=== PATIENT | female | born 1980 | race Caucasian/White ===

== ENCOUNTER 2018-11-28 10:47 | Emergency (ER) | payer SELFPAY ==
--- OUTSIDE RECORDS SUMMARY | 2018-11-28 10:58 | XMS REPORT | Continuity of Care Document ---
:1980 Author Organization [employer] Care Team Providers Name Role Phone [employer] Unavailable Unavailable Problems Problem Status Onset Classification Date Comments Source Date Reported SEIZURE Active 11/05/19 [facility] Syncope and 09/02/19 11/29/2017 [facility] collapse 18 [facility] Migraine with 08/14/19 11/11/2017 Karen aura, not 18 Hospital intractable, without status migrainosus Headache, 08/06/19 11/11/2017 Karen classical 18 [facility] migraine Acute vomiting 08/06/19 11/11/2017 [facility] Acute lower UTI 08/06/19 11/11/2017 [facility] UTI, ACIDSIS Active 01/24/20 [facility] 17 [facility] Discharge 12/18/19 12/20/2016 Karen Diagnosis: 17 Hospital Bilateral lower extremity pain Discharge 12/18/19 12/20/2016 Karen Diagnosis: 17 [facility] Elevated SGOT Discharge 12/05/19 12/07/2016 Karen Diagnosis: 17 [facility] Abnormal AST Discharge 12/05/19 12/07/2016 Karen Diagnosis: 17 Hospital Elevated MCV LEG AND HAND Active 12/05/19 [facility] PAIN 17 Hospital Discharge 10/23/19 10/25/2016 Karen Diagnosis: Hand 17 Hospital pain Discharge 10/23/19 10/25/2016 Karen Diagnosis: 17 Hospital Contusion of hand RIGHT HAND Active 10/19/19 Karen INJURY/DOG BITE 17 Hospital Chalazion of 08/18/19 Diagnosis 08/17/2016 [facility] lower eyelid 17 Urinary tract 11/11/2017 Karen infection, site Hospital not specified Fibromyalgia Active Problem 11/29/2017 [facility] Endometrial ca Active Problem 11/29/2017 [facility] Excessive and 11/29/2017 [facility] frequent [facility] menstruation with irregular cycle Lower abdominal 11/29/2017 [facility] pain, Hospital unspecified Alcohol abuse 11/29/2017 [facility] with [facility] intoxication, unspecified Anxiety 11/29/2017 [facility] disorder, Hospital unspecified Contusion of 11/29/2017 [facility] right forearm, Hospital initial encounter Contusion of 11/29/2017 [facility] right lower leg, Hospital initial encounter Endometriosis, 11/29/2017 [facility] unspecified Hospital Acidosis 11/29/2017 [facility] Dysmenorrhea, 11/29/2017 [facility] unspecified Hospital Fibromyalgia 11/29/2017 [facility] Long QT syndrome 11/29/2017 [facility] UNSPECIFIED Active [facility] CONVULSIONS Hospital HYPOCALCEMIA Active [facility] Medications Medication Details Route Status Patient Ordering Order Source Instructions Provider Date haloperidol 1 mg 1 mg=1 tab, Active 11/09[facility] Karen oral tablet PO, BID, PRN 2018 Hospital Hallucinations , as needed for hallucination, # 14 tab, 0 Refill(s), Pharmacy: [facility]/pharmacy #[id number] multivitamin with 1 tab, PO, Active 11/09[facility] Karen minerals Daily, 0 2018 Hospital Refill(s) Folic Acid 1 mg, 1 tab, Inactive 11/09[facility] Karen Route: PO, 2018 [facility] Drug form: TAB, Daily, Dosing Weight 61.8, kg, Priority: NOW, Start date: 11/09/17 9:57:00 CDT, Duration: 30 day, Stop date: 12/09/17 9:00:00 CDTNotes: (Same as: Folvite) Thiamine 100 mg, 1 tab, Inactive 11/09[facility] Karen Route: PO, [address] [place] [address] Drug form: TAB, Daily, Dosing Weight 61.8, kg, Priority: NOW, Start date: 11/09/17 9:57:00 CDT, Duration: 30 day, Stop date: 12/09/17 9:00:00 CDTNotes: (Same As: Vitamin B1) multivitamin with 1 tab, Route: Inactive 11/09[facility] Karen minerals PO, Drug Form: 2018 [facility] TAB, Dosing Weight 61.8, kg, Daily, NOW, Start date: 11/09/17 9:57:00 CDT, Duration: 30 day, Stop date: 12/09/17 9:00:00 CDTNotes: (Same as:Thera-M, Theragran-M) WASTE: F/P - Black; E - Municipal Trash Bin Give with food. Folic Acid 1 MG 1 mg=1 tab, Active Karen Oral Tablet PO, Daily, # 2018 Hospital 30 tab, 0 Refill(s), Pharmacy: [facility]/pharmacy #[id number] thiamine 100 mg 100 mg=1 tab, Active Karen oral tablet PO, Daily, X 2018 Hospital 30 day, # 30 tab, 0 Refill(s), Pharmacy: [facility]/pharmacy #[id number] tramadol 50 mg=1 tab, Active Karen hydrochloride 50 PO, Q6H, PRN 2018 Hospital MG Oral Tablet Pain, X 10 day, # 40 tab, 0 Refill(s) Lidocaine Viscous 0.3 gm=15 mL, Active Karen 2% mucous S&SPIT, Q3H, 2018 Hospital membrane solution PRN Mouth Pain, X 14 day, # 100 mL, 0 Refill(s), Pharmacy: [facility]/pharmacy #[id number] QUEtiapine 25 mg 50 mg=2 tab, Active Karen oral tablet PO, TID, # 84 2018 Hospital tab, 0 Refill(s), Pharmacy: [facility]/pharmacy #[id number] Lactulose 667 20 gm=30 mL, Active Karen MG/ML Oral PO, TID, as 2018 Hospital Solution needed for goal 2-3 BM daily, X 14 day, # 1260 mL, 0 Refill(s), Pharmacy: [facility]/pharmacy #[id number] Acetaminophen 300 1 tab, PO, Inactive Karen MG / Codeine Q6H, PRN Pain 2018 Hospital Phosphate 30 MG Score 7-10, X Oral Tablet 14 day, # 40 tab, 0 Refill(s) Lactulose 667 20 gm, 30 ml, No Longer Karen MG/ML Oral Route: PO, Active 2017 [facility] Solution Drug form: SYRP, TID, Dosing Weight 61.8, kg, Priority: NOW, Start date: 11/08/17 10:57:00 CDT, Duration: 30 day, Stop date: 12/08/17 9:00:00 CDTNotes: (Same as:Chronulac) Lidocaine Viscous 15 ml, Route: No Longer Karen 2% mucous S&SPIT, Q3H, Active 2017 Hospital membrane solution Drug form: SOLN, PRN Mouth Pain, Start date: 11/07/17 13:42:00 CDT, Duration: 30 day, Stop date: 12/07/17 13:41:00 CDTNotes: (Same as: Xylocaine) Haldol 1 mg, 0.2 mL, No Longer Karen Route: IVP, Active 2018 Hospital Drug form: INJ, Q8H, Dosing Weight 61.8, kg, PRN as needed for agitation, Start date: 11/07/17 13:37:00 CDT, Duration: 30 day, Stop date: 12/07/17 13:36:00 CDTNotes: (Same as: Haldol) acetaminophen-cod 1 tab, Route: No Longer Karen eine #3 PO, Drug Form: Active 2018 Hospital TAB, Dosing Weight 61.8, kg, Q6H, PRN Pain Score 7-10, Start date: 11/07/17 11:15:00 CDT, Duration: 30 day, Stop date: 12/07/17 11:14:00 CDTNotes: Do not exceed 4gm/day of acetaminophen. (Same as: Tylenol with Codeine # 3) tramadol 50 mg, 1 tab, No Longer Karen hydrochloride 50 Route: PO, Active 2018 Hospital MG Oral Tablet Drug form: TAB, Q6H, Dosing Weight 61.8, kg, PRN Pain Score 4-6, Start date: 11/07/17 11:15:00 CDT, Duration: 30 day, Stop date: 12/07/17 11:14:00 CDTNotes: Not to exceed 400mg/day. (Same As: Ultram) Haldol 2 mg, 0.4 mL, Inactive Karen Route: IM, 2018 Hospital Drug form: INJ, ONCE, Dosing Weight 61.8, kg, Start date: 11/07/17 2:51:00 CDT, Stop date: 11/07/17 2:51:00 CDTNotes: (Same as: Haldol) Seroquel 50 mg, 2 tab, Inactive Karen Route: PO, 2018 Hospital Drug form: TAB, ONCE, Dosing Weight 61.8, kg, Priority: STAT, Start date: 11/06/17 23:29:00 CDT, Stop date: 11/06/17 23:29:00 CDTNotes: (Same as: SEROquel) Acetaminophen 325 1 tab, Route: No Longer Karen MG / Hydrocodone PO, Drug Form: Active 2018 [facility] Bitartrate 5 MG TAB, Dosing Oral Tablet Weight 61.8, kg, Q4H, PRN Pain Score 4-6, Start date: 11/06/17 14:21:00 CDT, Duration: 30 day, Stop date: 12/06/17 14:20:00 CDTNotes: (Same as: [place] 325/5) Do not exceed 4gm/day of acetaminophen. Acetaminophen 325 1 tab, Route: No Longer Karen MG / Hydrocodone PO, Drug Form: Active 2018 [facility] Bitartrate 10 MG TAB, Dosing Oral Tablet Weight 61.8, kg, Q4H, PRN Pain Score 6-10, Start date: 11/06/17 14:21:00 CDT, Duration: 30 day, Stop date: 12/06/17 14:20:00 CDTNotes: Do not exceed 4gm/day of acetaminophen. (Same as: [place] 325/10) Ondansetron 4 mg, 2 mL, No Longer Karen Route: IVP, Active 2017 [facility] Drug form: INJ, Q8H, Dosing Weight 61.8, kg, PRN Nausea & Vomiting, Start date: 11/06/17 14:21:00 CDT, Duration: 30 day, Stop date: 12/06/17 14:20:00 CDTNotes: (Same as: Gerardo) MEDICATION WASTE Product Size: 4 mg Product Wasted: ___ mg Acetaminophen 650 mg, 2 tab, No Longer Karen Route: PO, Active 2017 [facility] Drug form: TAB, Q6H, Dosing Weight 61.8, kg, PRN Pain Score 1-3, Start date: 11/06/17 14:21:00 CDT, Duration: 30 day, Stop date: 12/06/17 14:20:00 CDTNotes: Do not exceed 4 gm/day. (Same as: Tylenol) BD Normal Saline 25 mL, Route: No Longer Karen Flush IV, Drug Form: Active 2017 [facility] INJ, PRN, PRN Line Flush, Start date: 11/05/17 14:50:00 CDT, Duration: 30 day, Stop date: 12/05/17 14:49:00 CDTNotes: (Same as: BD Posiflush) Seroquel 50 mg, 2 tab, No Longer Karen Route: PO, Active 2017 [facility] Drug form: TAB, TID, Dosing Weight 61.8, kg, Start date: 11/05/17 11:00:00 CDT, Duration: 30 day, Stop date: 12/04/17 17:00:00 CDTNotes: (Same as: SEROquel) Haldol 2 mg, 0.4 mL, Inactive Karen Route: IV, 2017 [facility] Drug form: INJ, ONCE, Dosing Weight 61.8, kg, Start date: 11/05/17 10:10:00 CDT, Stop date: 11/05/17 10:10:00 CDTNotes: (Same as: Haldol) Dexamethasone 4 mg, 1 mL, Inactive Karen Route: IVP, 2017 [facility] Drug form: INJ, Q6H, Dosing Weight 61.8, kg, Priority: STAT, Start date: 11/04/17 21:06:00 CDT, Duration: 30 day, Stop date: 12/04/17 16:00:00 CDTNotes: Concentration: 4mg/ml Levetiracetam 500 500 mg, 1 tab, No Longer Karen MG Oral Tablet Route: PO, Active 2017 [facility] [Keppra] Drug form: TAB, Q12H, Dosing Weight 61.8, kg, Start date: 11/04/17 21:00:00 CDT, Duration: 30 day, Stop date: 12/04/17 9:00:00 CDTNotes: (Same as:Ketamicara) Folic Acid 1 mg, 1 tab, No Longer Karen Route: PO, Active [address] [place] [address] Drug form: TAB, Daily, Dosing Weight 61.8, kg, Start date: 11/04/17 9:26:00 CDT, Duration: 5 day, Stop date: 11/09/17 9:00:00 CDTNotes: (Same as: Folvite) Saline Flush 0.9% 10 ml, Route: No Longer Karen IVP, Drug Active 2017 [facility] Form: INJ, Dosing Weight 61.8, kg, Q12H, Start date: 11/04/17 9:00:00 CDT, Duration: 30 day, Stop date: 12/03/17 21:00:00 CDTNotes: (Same as: BD Posiflush) Thiamine 100 mg, 1 tab, No Longer Karen Route: PO, Active 2017 [facility] Drug form: TAB, Daily, Dosing Weight 61.8, kg, Start date: 11/04/17 9:00:00 CDT, Duration: 5 day, Stop date: 11/08/17 9:00:00 CDTNotes: (Same As: Vitamin B1) multivitamin 1 tab, Route: No Longer Karen PO, Drug Form: [facility] 2017 [facility] TAB, Dosing Weight 61.8, kg, Daily, Start date: 11/04/17 9:00:00 CDT, Duration: 5 day, Stop date: 11/08/17 9:00:00 CDTNotes: (Same as:Thera) WASTE: F/P - Black; E - Municipal Trash Bin Take with food. Famotidine 20 MG 20 mg, 1 tab, No Longer Karen Oral Tablet Route: PO, Active 2017 [facility] Drug form: TAB, BID, Dosing Weight 61.8, kg, Start date: 11/04/17 9:00:00 CDT, Duration: 30 day, Stop date: 12/03/17 17:00:00 CDTNotes: (Same as: Pepcid) Lorazepam 2 mg, 1 mL, No Longer Karen Route: IVP, Active 2017 [facility] Drug form: INJ, Q2H, Dosing Weight 61.8, kg, PRN Other -See Comment, CIWA Score 8 -14, Start date: 11/04/17 8:59:00 CDT, Duration: 30 day, Stop date: 12/04/17 8:58:00 CDTNotes: (Same as: Ativan) potassium 2 pkt, Route: No Longer Karen phosphate-sodium PO, Drug Form: Active 2018 Hospital phosphate 250 PDR/REC, mg-280 mg-160 mg Dosing Weight oral powder for 61.8, kg, PRN, reconstitution PRN Abnormal Lab Result, FOR ICU USE ONLY, Start date: 11/04/17 8:57:00 CDT, Duration: 30 day, Stop date: 12/04/17 8:56:00 CDTNotes: (Same as: Phos-NaK) Each 1.5 gm pkt has 250mg phosphorous. Mix w/2.5oz water and stir. Magnesium Oxide 800 mg, 2 tab, No Longer Karen Route: PO, Active 2017 Hospital Drug form: TAB, PRN, Dosing Weight 61.8, kg, PRN Abnormal Lab Result, FOR ICU USE ONLY, Start date: 11/04/17 8:57:00 CDT, Duration: 30 day, Stop date: 12/04/17 8:56:00 CDTNotes: (Same as: Mag-Ox 400) Magnesium oxide [id number] elemental magnesium Dose=____mg magnesium oxide (___mg elemental magnesium) Magnesium Sulfate 2 gm, 50 mL, No Longer Karen Route: IVPB, Active 2017 [facility] Drug form: INJ, PRN, Dosing Weight 61.8, kg, PRN Abnormal Lab Result, Start date: 11/04/17 8:57:00 CDT, Duration: 30 day, Stop date: 12/04/17 8:56:00 CDT, FOR ICU USE ONLYNotes: WASTE: F/P - Sink; E - Municipal Trash Bin Calcium Carbonate 500 mg, 1 tab, No Longer Karen 500 MG Chewable Route: PO, Active 2018 Hospital Tablet Drug form: CHEWTAB, PRN, Dosing Weight 61.8, kg, PRN Abnormal Lab Result, FOR ICU USE ONLY, Start date: 11/04/17 8:57:00 CDT, Duration: 30 day, Stop date: 12/04/17 8:56:00 CDTNotes: (Same As: Tums) Calcium Carbonate 500 [id number] mg elemental calcium Dose= mg calcium carbonate ( mg elemental calcium) Calcium Gluconate 1 gm, 10 mL, No Longer Karen Route: IVPB, [address] PRN, Dosing Weight 61.8, kg, PRN Abnormal Lab Result, Start date: 11/04/17 8:57:00 CDT, Duration: 30 day, Stop date: 12/04/17 8:56:00 CDT, FOR ICU USE ONLYNotes: WASTE: F/P - Sink; E - Municipal Trash Bin sodium phosphate 30 mmol, 10 No Longer Karen mL, Route: [address] IVPB, PRN, Dosing Weight 61.8, kg, PRN Abnormal Lab Result, Start date: 11/04/17 8:57:00 CDT, Duration: 30 day, Stop date: 12/04/17 8:56:00 CDT, FOR ICU USE ONLY potassium 15 mmol, 5 mL, No Longer Karen phosphate Route: IV, [address] PRN, Dosing Weight 61.8, kg, PRN Abnormal Lab Result, Start date: 11/04/17 8:57:00 CDT, Duration: 30 day, Stop date: 12/04/17 8:56:00 CDT, FOR ICU USE ONLYNotes: (Same as: K Phosphate.) 1 mMol phoshate has 1.47 mEq potassium Infuse over 4 hours Potassium 20 mEq, 100 No Longer Karen Chloride mL, Route: [address] IVPB, Drug form: INJ, PRN, Dosing Weight 61.8, kg, PRN Abnormal Lab Result, Via central line, Start date: 11/04/17 8:57:00 CDT, Duration: 30 day, Stop date: 12/04/17 8:56:00 CDT, FOR ICU USE ONLYNotes: (Same as: KCL) Infuse no faster than 10 mEq/hr if given peripherally. Saline Flush 0.9% 10 ml, Route: No Longer Karen IVP, Drug Active [address] [place] [address] Form: INJ, Dosing Weight 61.8, kg, PRN, PRN Line Flush, Start date: 11/04/17 8:57:00 CDT, Duration: 30 day, Stop date: 12/04/17 8:56:00 CDTNotes: (Same as: BD Posiflush) Nystatin 100 1 appl, Route: No Longer Karen UNT/MG Topical TOP, PRN, Drug Active 2017 [facility] Powder form: PWDR, PRN For Fungal Prophylaxis, Start date: 11/04/17 8:57:00 CDT, Duration: 30 day, Stop date: 12/04/17 8:56:00 CDTNotes: (Same as:Mycostatin, Nilstat) For external use only. NS + KCL 20mEq/L 1,000 mL, No Longer Karen 1000ml (Premix) Rate: 100 Active 2017 [facility] 1,000 mL ml/hr, Infuse over: 10 hr, Route: IV, Dosing Weight 61.8 kg, Total Volume: 1,000, Start date: 11/04/17 8:28:00 CDT, Duration: 1 day, Stop date: 11/05/17 8:27:00 CDT, 1.65, [id number]: PREMIX IV - Do Not Alter WASTE: F/P - Sink; E - Municipal Trash Bin Lorazepam 2 MG 2 mg=1 tab, Active Karen Oral Tablet PO, BID, PRN [address] [place] [address] [Ativan] as needed for anxiety, 0 Refill(s) Enoxaparin 40 mg, 0.4 mL, No Longer Karen Route: SUB-Q, [facility] 2017 [facility] Drug form: INJ, [id number], Dosing Weight 62.727, kg, Start date: 11/04/17 8:00:00 CDT, Duration: 30 day, Stop date: 12/02/17 10:00:00 CDTNotes: (Same as: Lovenox) Docusate 100 mg, 1 cap, No Longer Karen Route: PO, Active 2017 [facility] Drug form: CAP, BID, Dosing Weight 62.727, kg, PRN Constipation, Start date: 11/04/17 7:55:00 CDT, Duration: 30 day, Stop date: 12/04/17 7:54:00 CDTNotes: (Same as: Colace) (Do Not Crush) Ondansetron 4 mg, 2 mL, No Longer Karen Route: IVP, Active 2017 [facility] Drug form: INJ, Q6H, Dosing Weight 62.727, kg, PRN Nausea & Vomiting, Start date: 11/04/17 7:55:00 CDT, Duration: 30 day, Stop date: 12/04/17 7:54:00 CDTNotes: (Same as: Zofran) MEDICATION WASTE Product Size: 4 mg Product Wasted: ___ mg Lorazepam 60 mg, 30 mL, No Longer Karen Rate: Titrate, Active [facility] Start Dose: 1 mg/hr, Titration: Rebolus 1 milligram IV and/or Titrate by 1 mg/hour every 30 minutes, Goal(s): 0, Max Dose: 10 mg/hr, Route: IV, Dosing Weight 62.727 kg, Total Volume: 60, Start date: 11/04/17 6:09:00 CDT, D...Notes: (Same as: Ativan) Ativan 2 mg, Route: Inactive 11/04[facility] Karen IVP, Drug [address] [place] [address] form: INJ, ONCE, Dosing Weight 62.727, kg, Priority: STAT, Start date: 11/04/17 6:09:00 CDT, Stop date: 11/04/17 6:09:00 CDT Lorazepam 2 mg, 1 mL, Inactive Karen Route: IVP, [address] [place] [address] Drug form: INJ, ONCE, Dosing Weight 59.091, kg, Priority: STAT, Start date: 11/04/17 5:06:00 CDT, Stop date: 11/04/17 5:06:00 CDTNotes: (Same as: Ativan) Levetiracetam 1,000 mg, 100 Inactive 11/04[facility] Karen mL, Route: [address] [place] [address] IVPB, Drug form: INJ, ONCE, Dosing Weight 59.091, kg, Priority: STAT, Start date: 11/04/17 5:06:00 CDT, Stop date: 11/04/17 5:06:00 CDT Sodium Chloride 1,000 mL, Inactive Karen 0.9% (Bolus) IV 1,000 ml/hr, [address] [place] [address] Infuse Over: 1 hr, Route: IV, 1,000, Drug form: INJ, ONCE, Priority: STAT, Dosing Weight 59.091 kg, Start date: 11/04/17 5:06:00 CDT, Stop date: 11/04/17 5:06:00 CDT Saline Flush 0.9% 10 mL, Route: Inactive Karen IVP, Drug [address] [place] [address] Form: INJ, Dosing Weight 59.091, kg, PRN, PRN Line Flush, Start date: 11/04/17 5:06:00 CDT, Duration: 30 day, Stop date: 12/04/17 5:05:00 CDTNotes: (Same as: BD Posiflush) NS (Bolus) IV 500 mL, 500 Inactive Karen ml/hr, Infuse [address] [place] [address] Over: 1 hr, Route: IV, 500, Drug form: INJ, ONCE, Priority: STAT, Dosing Weight 59.091 kg, Start date: 08/23/17 9:17:00 CDT, Stop date: 08/23/17 9:17:00 CDT mefenamic acid 250 mg=1 cap, No Longer Karen 250 mg oral PO, Q6H, PRN Active [address] [place] [address] capsule for menstrual pain, X 7 day, # 30 cap, 0 Refill(s), Pharmacy: [facility]/pharmacy #[id number] Potassium 40 mEq, 2 tab, Inactive Karen Chloride Route: PO, [address] [place] [address] Drug form: ERTAB, Daily, Dosing Weight 59.091, kg, Start date: 08/23/17 9:08:00 CDT, Duration: 30 day, Stop date: 09/22/17 9:00:00 CDTNotes: (Same as: K-Dur 20) "Do Not Crush" For patients unable to swallow tablet, dissolve in one half glass of water. Allow about 2 minutes for the tablets to disintegrate. Stir before giving to prepare slurry and administer. Please exclude Patients with feeding tube less than 14 Azeri (Dobhoff, J-tube etc) and pediatric and patients. With food and full glass of water Saline Flush 0.9% 10 ml, Route: Inactive Karen IVP, Drug [facility] Form: INJ, Dosing Weight 61.364, kg, Q12H, Start date: 08/23/17 9:00:00 CDT, Duration: 30 day, Stop date: 09/21/17 21:00:00 CDTNotes: (Same as: BD Posiflush) Thiamine 100 mg, 1 tab, Inactive Karen Route: PO, 2017 Hospital Drug form: TAB, Daily, Dosing Weight 61.364, kg, Start date: 08/23/17 9:00:00 CDT, Duration: 5 day, Stop date: 08/27/17 9:00:00 CDTNotes: (Same As: Vitamin B1) Folic Acid 1 mg, 1 tab, Inactive Karen Route: PO, 2017 [facility] Drug form: TAB, Daily, Dosing Weight 61.364, kg, Start date: 08/23/17 9:00:00 CDT, Duration: 5 day, Stop date: 08/27/17 9:00:00 CDTNotes: (Same as: Folvite) Levetiracetam 500 500 mg, 1 tab, Inactive Karen MG Oral Tablet Route: PO, 2018 [facility] [Ketamicara] Drug form: TAB, Q12H, Dosing Weight 59.091, kg, Start date: 08/23/17 9:00:00 CDT, Duration: 30 day, Stop date: 09/21/17 21:00:00 CDTNotes: (Same as:Keppra) Famotidine 20 MG 20 mg, 1 tab, Inactive Karen Oral Tablet Route: PO, 2017 [facility] Drug form: TAB, BID, Dosing Weight 59.091, kg, Start date: 08/23/17 9:00:00 CDT, Duration: 30 day, Stop date: 09/21/17 17:00:00 CDTNotes: (Same as: Pepcid) multivitamin 1 tab, Route: Inactive Karen PO, Drug Form: 2018 [facility] TAB, Dosing Weight 61.364, kg, Breakfast, Start date: 08/23/17 8:00:00 CDT, Duration: 5 day, Stop date: 08/27/17 8:00:00 CDT morphine Sulfate 2 mg, 1 mL, Inactive Karen Route: INJ, 2018 [facility] Drug form: SOLN, Q4H, PRN Pain Score 7-10, Start date: 08/23/17 6:19:00 CDT, Duration: 30 day, Stop date: 09/22/17 6:18:00 CDT codeine sulfate 30 mg, 1 tab, Inactive Karen Route: PO, [address] [place] [address] Drug form: TAB, Q4H, PRN Headache 6-10, Start date: 08/23/17 3:33:00 CDT, Duration: 30 day, Stop date: 09/22/17 3:32:00 CDT APAP/butalbital/c 1 tab, Route: Inactive Karen affeine PO, Drug Form: [address] [place] [address] TAB, Q4H, PRN Headache 6-10, Start date: 08/23/17 3:32:00 CDT, Duration: 30 day, Stop date: 09/22/17 3:31:00 CDT Acetaminophen 325 1 cap, Route: Inactive Karen MG / butalbital PO, Drug Form: [address] [place] [address] 50 MG / Caffeine CAP, Dosing 40 MG / Codeine Weight 59.091, Phosphate 30 MG kg, Q4H, PRN Oral Capsule Headache 6-10, Start date: 08/23/17 3:20:00 CDT, Duration: 30 day, Stop date: 09/22/17 3:19:00 CDT morphine Sulfate 2 mg, 1 mL, Inactive Karen Route: IVP, [address] [place] [address] Drug form: SOLN, ONCE, Start date: 08/23/17 2:00:00 CDT, Stop date: 08/23/17 2:00:00 CDT Phenergan 25 mg, 1 mL, Inactive Karen Route: IVPB, [address] [place] [address] ONCE, Dosing Weight 61.364, kg, Start date: 08/23/17 1:19:00 CDT, Stop date: 08/23/17 1:19:00 CDTNotes: Do not give IV push. (Same as: Phenergan) Acetaminophen 300 1 cap, PO, Active Karen MG / butalbital Q4H, PRN [address] [place] [address] 50 MG / Caffeine Headache 6-10, 40 MG / Codeine 0 Refill(s) Phosphate 30 MG Oral Capsule [Fioricet with Codeine] Ondansetron 4 MG 4 mg=1 tab, No Longer Karen Disintegrating PO, TID, PRN Active 2018 [facility] Tablet [Zofran] Nausea & Vomiting, 0 Refill(s) Levetiracetam 500 500 mg=1 tab, Active Karen MG Oral Tablet PO, Q12H, 0 2017 [facility] [Keppra] Refill(s) Famotidine 20 MG 20 mg=1 tab, Active Karen Oral Tablet PO, BID, 0 2017 [facility] Refill(s) Clonidine 0.1 mg, 1 tab, Inactive Karen Route: PO, 2018 [facility] Drug form: TAB, Q4H, Dosing Weight 61.364, kg, PRN Hypertension, Start date: 08/23/17 1:05:00 CDT, Duration: 30 day, Stop date: 09/22/17 1:04:00 CDTNotes: (Same As: Catapres) Lorazepam 2 mg, 1 mL, Inactive Karen Route: IVP, 2017 [facility] Drug form: INJ, Q2H, Dosing Weight 61.364, kg, PRN Withdrawal, Start date: 08/23/17 1:05:00 CDT, Duration: 30 day, Stop date: 09/22/17 1:04:00 CDTNotes: (Same as: Ativan) morphine Sulfate 6 mg, 3 mL, Inactive Karen Route: PO, 2017 [facility] Drug form: SOLN, Q4H, PRN Pain Score 7-10, Start date: 08/23/17 0:57:00 CDT, Duration: 30 day, Stop date: 09/22/17 0:56:00 CDTNotes: (Same as:MORPhine Sulfate) Zofran 4 mg, 2 mL, Inactive Karen Route: IVP, 2017 [facility] Drug form: INJ, Q8H, Dosing Weight 61.364, kg, PRN Nausea, Start date: 08/23/17 0:54:00 CDT, Duration: 30 day, Stop date: 09/22/17 0:53:00 CDTNotes: (Same as: Zofran) MEDICATION WASTE Product Size: 4 mg Product Wasted: ___ mg Morphine 2 mg, Route: Inactive Karen IVP, Q4H, 2018 [facility] Dosing Weight 61.364, kg, PRN Pain Score 7-10, Start date: 08/23/17 0:54:00 CDT, Duration: 30 day, Stop date: 09/22/17 0:53:00 CDT Dextrose 50% 25 gm, Route: Inactive Karen Syringe IVP, Dosing 2018 [facility] Weight 61.364, kg, ONCE, STAT, Start date: 08/23/17 0:15:00 CDT, Stop date: 08/23/17 0:15:00 CDT Saline Flush 0.9% 10 ml, Route: Inactive Karen IVP, Drug 2018 [facility] Form: INJ, Dosing Weight 61.364, kg, PRN, PRN Line Flush, Start date: 08/23/17 0:03:00 CDT, Duration: 30 day, Stop date: 09/22/17 0:02:00 CDT Sodium Chloride 1,000 mL, Inactive Karen 0.9% IV 1,000 mL Rate: 100 2018 [facility] ml/hr, Infuse over: 10 hr, Route: IV, Dosing Weight 61.364 kg, Total Volume: 1,000, Start date: 08/23/17 0:03:00 CDT, Duration: 30 day, Stop date: 09/22/17 0:02:00 CDT, 1.62, m2 Pepcid 20 mg, Route: No Longer Karen IV, ONCE, Active [address] [place] [address] Dosing Weight 61.364, kg, Start date: 08/22/17 23:58:00 CDT, Stop date: 08/22/17 23:58:00 CDT, BD Normal Saline 25 mL, Route: No Longer Karen Flush IV, Drug Form: Active [address] [place] [address] INJ, PRN, PRN Line Flush, Start date: 08/22/17 23:48:00 CDT, Duration: 30 day, Stop date: 09/21/17 23:47:00 CDTNotes: (Same as: BD Posiflush) Morphine 2 mg, Route: Inactive Karen IVP, ONCE, 2018 [facility] Dosing Weight 61.364, kg, Priority: STAT, Start date: 08/22/17 23:30:00 CDT, Stop date: 08/22/17 23:30:00 CDT Potassium 20 mEq, Route: Inactive Karen Chloride PO, Drug form: [address] [place] [address] ERTAB, ONCE, Dosing Weight 61.364, kg, Priority: STAT, Start date: 08/22/17 23:19:00 CDT, Stop date: 08/22/17 23:19:00 CDT NS (Bolus) IV 1,000 mL, Inactive Karen 1,000 ml/hr, 2018 Hospital Infuse Over: 1 hr, Route: IV, 1,000, Drug form: INJ, ONCE, Priority: STAT, Dosing Weight 61.364 kg, Start date: 08/22/17 21:49:00 CDT, Stop date: 08/22/17 21:49:00 CDT Morphine 4 mg, 1 mL, Inactive Karen Route: IVP, [address] [place] [address] Drug form: SOLN, ONCE, Dosing Weight 61.364, kg, Priority: STAT, Start date: 08/22/17 21:14:00 CDT, Stop date: 08/22/17 21:14:00 CDTNotes: (Same as:MORPhine Sulfate) Zofran 4 mg, 2 mL, Inactive Karen Route: IVP, [facility] Drug form: INJ, ONCE, Dosing Weight 61.364, kg, Priority: STAT, Start date: 08/22/17 21:14:00 CDT, Stop date: 08/22/17 21:14:00 CDTNotes: (Same as: Zofran) MEDICATION WASTE Product Size: 4 mg Product Wasted: 0mg Phenergan 6.25 mg, 0.25 Inactive Karen mL, Route: 2018 [facility] IVPB, ONCE, Dosing Weight 61.364, kg, Priority: STAT, Start date: 08/05/17 5:07:00 CDT, Stop date: 08/05/17 5:07:00 CDTNotes: Do not give IV push. (Same as: Phenergan) Ondansetron 4 MG 4 mg=1 tab, No Longer Karen Disintegrating PO, TID, PRN Active 2018 Hospital Tablet [Zofran] Nausea & Vomiting, Dissolve tab under tongue, # 6 tab, 0 Refill(s) Acetaminophen 300 1 cap, PO, No Longer Karen MG / butalbital QID, PRN Active 2018 Hospital 50 MG / Caffeine Headache, Do 40 MG / Codeine not exceed 6 Phosphate 30 MG capsules in 24 Oral Capsule hours, X 5 [Fioricet with day, # 24 cap, Codeine] 0 Refill(s) Sulfamethoxazole 1 tab, PO, No Longer Karen 800 MG / BID, X 5 day, Active 2018 Hospital Trimethoprim 160 # 10 tab, 0 MG Oral Tablet Refill(s) [Bactrim] Zofran 4 mg, Route: Inactive Karen IVP, Drug 2018 Hospital form: INJ, ONCE, Dosing Weight 61.364, kg, Priority: STAT, Start date: 08/05/17 4:21:00 CDT, Stop date: 08/05/17 4:21:00 CDT Ceftriaxone 1 gm, Route: Inactive Karen IVPB, Drug 2018 Hospital form: PDR/INJ, ONCE, Dosing Weight 61.364, kg, Priority: STAT, Start date: 08/05/17 4:17:00 CDT, Stop date: 08/05/17 4:17:00 CDT, ABX Indication: Urinary Tract Infection Ketorolac 30 mg, Route: Inactive Karen IVP, Drug 2018 Hospital form: INJ, ONCE, Dosing Weight 61.364, kg, Priority: STAT, Start date: 08/05/17 2:43:00 CDT, Stop date: 08/05/17 2:43:00 CDT Morphine 4 mg, Route: Inactive Karen IVP, ONCE, 2018 Hospital Dosing Weight 61.364, kg, Priority: STAT, Start date: 08/05/17 2:08:00 CDT, Stop date: 08/05/17 2:08:00 CDT NS (Bolus) IV 1,000 mL, Inactive Karen 1,000 ml/hr, 2018 Hospital Infuse Over: 1 hr, Route: IV, ONCE, Priority: STAT, Dosing Weight 61.364 kg, Start date: 08/05/17 1:34:00 CDT, Stop date: 08/05/17 1:34:00 CDT Compazine 10 mg, Route: Inactive 08/05[facility] Karen IV, ONCE, 2018 Hospital Dosing Weight 61.364, kg, Start date: 08/05/17 1:32:00 CDT, Stop date: 08/05/17 1:32:00 CDT Famotidine 20 mg, Route: Inactive 08/05[facility] Karen IVP, ONCE, 2018 Hospital Dosing Weight 61.364, kg, Priority: STAT, Start date: 08/05/17 1:08:00 CDT, Stop date: 08/05/17 1:08:00 CDT Metoclopramide 10 mg, Route: Inactive 08/05[facility] Karen IVP, Drug 2018 Hospital form: INJ, ONCE, Dosing Weight 61.364, kg, Priority: STAT, Start date: 08/05/17 1:08:00 CDT, Stop date: 08/05/17 1:08:00 CDT Saline Flush 0.9% 10 mL, Route: Inactive 08/05[facility] Karen IVP, Drug 2018 Hospital Form: INJ, Dosing Weight 61.364, kg, PRN, PRN Line Flush, Start date: 08/05/17 1:08:00 CDT, Duration: 30 day, Stop date: 09/04/17 1:07:00 CDTNotes: (Same as: BD Posiflush) Benadryl 25 mg, Route: Inactive 08/05[facility] Karen IVP, ONCE, 2018 Hospital Dosing Weight 61.364, kg, Priority: STAT, Start date: 08/05/17 1:08:00 CDT, Stop date: 08/05/17 1:08:00 CDT ibuprofen 600 mg 600 mg=1 tab, Inactive Karen oral tablet PO, Q8H, PRN 2017 [facility] pain, # 30 tab, 0 Refill(s) Acetaminophen 325 1 tab, PO, Active Karen MG / Hydrocodone Q4-6H, PRN 2017 [facility] Bitartrate 5 MG Pain Score Oral Tablet 6-10, X 5 day, [[place] 5/325] # 30 tab, 0 Refill(s) Famotidine 20 MG 20 mg=1 tab, Active Karen Oral Tablet PO, BID, # 60 2017 Hospital tab, 0 Refill(s) Lidocaine 1 patch, TOP, Active Karen Hydrochloride Daily, Remove 2017 Hospital 0.05 MG/MG after 12 Transdermal Patch hours, # 7 [Lidoderm] patch, 0 Refill(s) Levetiracetam 500 500 mg=1 tab, Active Karen MG Oral Tablet PO, Q12H, # 60 2017 Hospital [Keppra] tab, 0 Refill(s) acetaminophen 325 650 mg=2 tab, Active Karen mg oral tablet PO, Q4H, PRN 2017 Hospital Pain 1-3/Temp > 100.4 F, 0 Refill(s) Calcium Carbonate 1,000 mg, 2 Inactive Karen tab, Route: 2017 Hospital PO, Drug form: CHEWTAB, BID, Dosing Weight 59.091, kg, Start date: 01/26/17 9:00:00 CDT, Duration: 30 day, Stop date: 02/24/17 17:00:00 CDTNotes: (Same As: Tums) Calcium Carbonate 500 at=724 mg elemental calcium Dose= mg calcium carbonate ( mg elemental calcium) Pepto-bismol 524 mg, 30 mL, No Longer Karen Route: PO, Active 2016 [facility] Drug Form: SUSP, Dosing Weight 59.091, kg, QID, PRN Diarrhea, Start date: 01/25/17 22:33:00 CDT, Duration: 30 day, Stop date: 02/24/17 22:32:00 CDTNotes: (Same As: Pepto Bismol and Kaopectate) Levetiracetam 500 500 mg, 1 tab, No Longer Karen MG Oral Tablet Route: PO, Active [address] [place] [address] [Keppra] Drug form: TAB, Q12H, Dosing Weight 59.091, kg, Start date: 01/25/17 21:00:00 CDT, Duration: 30 day, Stop date: 02/24/17 9:00:00 CDTNotes: (Same as:Keppra) Keppra 1,000 mg, Inactive Karen Route: IV, [address] [place] [address] ONCE, Dosing Weight 59.091, kg, Priority: NOW, Start date: 01/25/17 11:14:00 CDT, Stop date: 01/25/17 11:14:00 CDTNotes: Same as Keppra Mix with 100 mL NS, LR or D5W MEDICATION WASTE Product Size: 500 mg Product Wasted: _0__ mg Lidocaine 1 patch, No Longer Karen Hydrochloride Route: TOP, Active [address] [place] [address] 0.05 MG/MG Daily, Drug Transdermal Patch form: FILM, [Lidoderm] Start date: 01/25/17 9:00:00 CDT, Duration: 30 day, Stop date: 02/23/17 9:00:00 CDT, Remove after 12 hoursNotes: Apply only once for up to 12 hours in a 24-hour period (12 hours on and 12 hours off). (Same as: Lidoderm) "Remove old patch before application of new patch" ketOROLAC 15 15 mg, 0.5 mL, No Longer Karen mg/mL injectable Route: IVP, Active [address] [place] [address] solution Drug form: INJ, Q6H, Dosing Weight 59.091, kg, PRN Pain Score 4-6, Start date: 01/25/17 8:49:00 CDT, Duration: 4 day, Stop date: 01/29/17 8:48:00 CDTNotes: (Same as:Toradol) IV bolus must be given >15 seconds. Give IM administration slowly and deeply into the muscle. Not for use > 4 days MEDICATION WASTE Product Size: 30 mg Product Wasted: ___ mg Calcium Gluconate 1,000 mg, 10 Inactive Karen mL, Route: [address] [place] [address] IVPB, ONCE, Dosing Weight 59.091, kg, Priority: NOW, Start date: 01/25/17 3:39:00 CDT, Stop date: 01/25/17 3:39:00 CDT Ceftriaxone 1 gm, Route: No Longer Karen IVPB, [id number], Active 2017 Hospital Dosing Weight 59.091, kg, Start date: 01/24/17 23:00:00 CDT, Duration: 5 day, Stop date: 01/28/17 23:00:00 CDT, ABX Indication: Urinary Tract InfectionNotes : (Same As: Rocephin). Use with 100 mL NS and infuse over 30 min MEDICATION WASTE Product Size: 1000 mg Product Wasted: __0_ mg Tylenol 650 mg, 2 tab, No Longer Karen Route: PO, Active 2017 Hospital Drug form: TAB, Q4H, Dosing Weight 59.091, kg, PRN Pain 1-3/Temp > 100.4 F, Start date: 01/24/17 22:29:00 CDT, Stop date: 02/23/17 22:28:00 CDTNotes: Do not exceed 4 gm/day. (Same as: Tylenol) Keppra + sodium 1,000 mg, Inactive Karen chloride 0.9% 100 Route: IVPB, 2017 [facility] mL INJ (for IV ONCE, Start set) 100 mL date: 01/24/17 22:07:00 CDT, Stop date: 01/24/17 22:07:00 CDTNotes: Same as Keppra Mix with 100 mL NS, LR or D5W MEDICATION WASTE Product Size: 500 mg Product Wasted: ___ mg Potassium 40 mEq, 2 tab, Inactive Karen Chloride Route: PO, 2017 Hospital Drug form: ERTAB, ONCE, Dosing Weight 59.091, kg, Start date: 01/24/17 21:50:00 CDT, Stop date: 01/24/17 21:50:00 CDTNotes: (Same as: K-Dur 20) "Do Not Crush" With food and full glass of water Keppra 1,000 mg, 100 Inactive Karen mL, Route: 2017 Hospital IVPB, Drug form: INJ, ONCE, Dosing Weight 59.091, kg, Start date: 01/24/17 21:49:00 CDT, Stop date: 01/24/17 21:49:00 CDT sodium chloride 2,000 mL, Inactive Karen 0.9% 1000 ml INJ Rate: 1,000 2017 Hospital 2,000 mL ml/hr, Infuse over: 2 hr, Route: IV, Dosing Weight 59.091 kg, Total Volume: 2,000, Start date: 01/24/17 21:31:00 CDT, Duration: 1 doses or times, Stop date: 01/24/17 23:30:00 CDT Potassium 10 mEq, 100 Inactive Karen Chloride mL, Route: IV, 2016 Hospital Drug form: INJ, Q1H, Dosing Weight 59.091, kg, Start date: 01/24/17 12:00:00 CDT, Duration: 4 doses or times, Stop date: 01/24/17 15:00:00 CDTNotes: Infuse at a rate of 10 mEq/hr. (Same as: KCL) Magnesium Sulfate 4 gm, 100 mL, Inactive Karen Route: IVPB, 2016 Hospital Drug form: INJ, ONCE, Dosing Weight 59.091, kg, Priority: NOW, Start date: 01/24/17 11:44:00 CDT, Stop date: 01/24/17 11:44:00 CDTNotes: WASTE: F/P - Sink; E - [employer] [facility] Dilaudid 0.5 mg, 0.5 No Longer Karen mL, Route: IV, Active 2016 [facility] Drug form: INJ, Q3H, Dosing Weight 59.091, kg, PRN Pain Score 6-10, Start date: 01/24/17 9:22:00 CDT, Duration: 30 day, Stop date: 02/23/17 9:21:00 CDTNotes: Same as: Dilaudid Phenergan 25 mg, 1 mL, No Longer Karen Route: IVPB, Active 2017 Hospital Q6H, Dosing Weight 59.091, kg, PRN as needed for nausea/vomitin g, Priority: STAT, Start date: 01/24/17 9:22:00 CDT, Duration: 30 day, Stop date: 02/23/17 9:21:00 CDTNotes: Do not give IV push. (Same as: Phenergan) Azithromycin 500 mg, Route: No Longer Karen IV, [id number], Active 2016 [facility] Dosing Weight 59.091, kg, Start date: 01/24/17 9:00:00 CDT, Duration: 30 day, Stop date: 02/22/17 9:00:00 CDT, ABX Indication: PneumoniaNotes : (Same As: Zithromax IV) Lyrica 50 mg, 1 cap, No Longer Karen Route: PO, Active 2016 [facility] Drug form: CAP, BID, Dosing Weight 59.091, kg, Start date: 01/24/17 9:00:00 CDT, Duration: 30 day, Stop date: 02/22/17 17:00:00 CDTNotes: Same as Lyrica Pepcid 20 mg, 2 mL, No Longer Karen Route: IVP, [address] Drug form: INJ, Q12H, Dosing Weight 59.091, kg, Start date: 01/24/17 9:00:00 CDT, Duration: 30 day, Stop date: 02/22/17 21:00:00 CDTNotes: (Same as: Pepcid) Can be dilute in 5-10cc NS IVP: Slow IV push over at least 2 minutes. Ondansetron 4 mg, 2 mL, No Longer Karen Route: IVP, [address] Drug form: INJ, Q6H, Dosing Weight 59.091, kg, PRN Nausea & Vomiting, Start date: 01/24/17 2:27:00 CDT, Duration: 30 day, Stop date: 02/23/17 2:26:00 CDTNotes: (Same as: Zofran) MEDICATION WASTE Product Size: 4 mg Product Wasted: ___ mg D5NS + KCL 1,000 mL, No Longer Karen 20mEq/L 1000ml Rate: [address] ([facility]) 1,000 mL ml/hr, Infuse over: 8 hr, Route: IV, Dosing Weight 59.091 kg, Total Volume: 1,000, Start date: 01/24/17 2:27:00 CDT, Duration: 30 day, Stop date: 02/23/17 2:26:00 CDT Saline Flush 0.9% 10 ml, Route: Inactive Karen IVP, Drug 2017 Hospital Form: INJ, Dosing Weight 59.091, kg, PRN, PRN Line Flush, Start date: 01/24/17 2:27:00 CDT, Duration: 30 day, Stop date: 02/23/17 2:26:00 CDT Morphine 4 mg, 1 mL, Inactive Karen Route: IVP, 2017 Hospital Drug form: SOLN, Q4H, Dosing Weight 59.091, kg, PRN Pain Score 7-10, Start date: 01/24/17 2:27:00 CDT, Duration: 30 day, Stop date: 02/23/17 2:26:00 CDTNotes: (Same as: MORPhine Sulfate) Lyrica 50 mg, PO, Active Karen BID, 0 2016 Hospital Refill(s) Sodium Chloride 25 mL, Route: No Longer Karen 0.9% IV IV, Start Active 2017 Hospital date: 01/24/17 0:48:00 CDT, Duration: 30 day, Stop date: 02/23/17 0:47:00 CDT, PRN Line Flush Sodium Chloride 1,000 mL, 1000 Inactive Karen 0.9% (Bolus) IV ml/hr, Infuse 2017 Hospital Over: 1 hr, Route: IV, 1,000, Drug form: INJ, ONCE, Priority: STAT, Dosing Weight 62.273 kg, Start date: 01/24/17 0:44:00 CDT, Duration: 1 doses or times, Stop date: 01/24/17 0:44:00 CDT Rocephin 1 gm, Route: No Longer Karen IVPB, Drug Active 2016 Hospital form: PDR/INJ, ONCE, Dosing Weight 62.273, kg, Priority: STAT, Start date: 01/23/17 23:45:00 CDT, Duration: 1 doses or times, Stop date: 01/23/17 23:45:00 CDT, ABX Indication: Urinary Tract Infection Ketorolac 15 mg, Route: Inactive Karen IVP, Drug 2017 Hospital form: INJ, ONCE, Dosing Weight 62.273, kg, Priority: STAT, Start date: 01/23/17 23:34:00 CDT, Stop date: 01/23/17 23:34:00 CDT Phenergan 25 mg, Route: Inactive Karen IVPB, ONCE, 2017 [facility] Dosing Weight 62.273, kg, Priority: STAT, Start date: 01/23/17 23:34:00 CDT, Stop date: 01/23/17 23:34:00 CDT Reglan 10 mg, Route: Inactive Karen IVP, Drug 2017 Hospital form: INJ, ONCE, Dosing Weight 62.273, kg, Priority: STAT, Start date: 01/23/17 23:26:00 CDT, Stop date: 01/23/17 23:26:00 CDT Potassium 40 mEq, Route: Inactive Karen Chloride PO, Drug form: 2017 [facility] ERTAB, ONCE, Dosing Weight 62.273, kg, Priority: STAT, Start date: 01/23/17 23:10:00 CDT, Stop date: 01/23/17 23:10:00 CDT Ondansetron 4 mg, 2 mL, Inactive Karen Route: IVP, 2017 [facility] Drug form: INJ, ONCE, Dosing Weight 62.273, kg, Priority: STAT, Start date: 01/23/17 19:36:00 CDT, Stop date: 01/23/17 19:36:00 CDTNotes: (Same as: Zofran) MEDICATION WASTE Product Size: 4 mg Product Wasted: __0_ mg Morphine 4 mg, 1 mL, Inactive Karen Route: IVP, 2017 Hospital Drug form: SOLN, ONCE, Dosing Weight 62.273, kg, Priority: STAT, Start date: 01/23/17 19:36:00 CDT, Stop date: 01/23/17 19:36:00 CDTNotes: (Same as: MORPhine Sulfate) Sodium Chloride 1,000 mL, Inactive Karen 0.9% (Bolus) IV 2,000 ml/hr, 2017 [facility] Infuse Over: 30 minutes, Route: IV, 1,000, Drug form: INJ, ONCE, Priority: STAT, Dosing Weight 62.273 kg, Start date: 01/23/17 19:36:00 CDT, Duration: 1 doses or times, Stop date: 01/23/17 19:36:00 CDT Saline Flush 0.9% 10 mL, Route: No Longer Karen IVP, Drug Active 2017 [facility] Form: INJ, Dosing Weight 62.273, kg, PRN, PRN Line Flush, Start date: 01/23/17 19:36:00 CDT, Duration: 30 day, Stop date: 02/22/17 19:35:00 CDTNotes: (Same as: BD Posiflush) tramadol 50 mg=1 tab, Active Karen hydrochloride 50 PO, Q6H, PRN 2017 [facility] MG Oral Tablet Pain, X 5 day, # 20 tab, 0 Refill(s) Sodium Chloride 25 mL, Route: No Longer Karen 0.9% IV IV, Start Active 2016 Hospital date: 12/16/16 22:32:00 CDT, Duration: 30 day, Stop date: 01/15/17 22:31:00 CDT, PRN Line Flush Zofran 4 mg, Route: Inactive Karen IVP, Drug 2017 Hospital form: INJ, ONCE, Dosing Weight 59.091, kg, Priority: STAT, Start date: 12/16/16 22:04:00 CDT, Stop date: 12/16/16 22:04:00 CDT Ketorolac 30 mg, Route: Inactive Karen IVP, Drug 2017 Hospital form: INJ, ONCE, Dosing Weight 59.091, kg, Priority: STAT, Start date: 12/16/16 22:03:00 CDT, Stop date: 12/16/16 22:03:00 CDT Sodium Chloride 1,000 mL, Inactive Karen 0.9% (Bolus) IV 2,000 ml/hr, 2017 [facility] Infuse Over: 30 minutes, Route: IV, 1,000, Drug form: INJ, ONCE, Priority: STAT, Dosing Weight 59.091 kg, Start date: 12/16/16 18:50:00 CDT, Duration: 1 doses or times, Stop date: 12/16/16 18:50:00 CDT Saline Flush 0.9% 5 mL, Route: No Longer Karen IVP, Drug Active 2016 [facility] Form: INJ, Dosing Weight 59.091, kg, PRN, PRN Line Flush, Start date: 12/16/16 18:50:00 CDT, Duration: 24 hr, Stop date: 12/17/16 18:49:00 CDTNotes: (Same as: BD Posiflush) Morphine 4 mg, 1 mL, Inactive Karen Route: IVP, 2016 [facility] Drug form: INJ, ONCE, Dosing Weight 59.091, kg, Priority: STAT, Start date: 12/16/16 18:50:00 CDT, Stop date: 12/16/16 18:50:00 CDTNotes: (Same as:MORPhine Sulfate) Ondansetron 4 mg, 2 mL, Inactive Karen Route: IVP, 2016 Hospital Drug form: INJ, ONCE, Dosing Weight 59.091, kg, Priority: STAT, Start date: 12/16/16 18:50:00 CDT, Stop date: 12/16/16 18:50:00 CDTNotes: (Same as: Zofran) MEDICATION WASTE Product Size: 4 mg Product Wasted: 0mg Sucralfate 100 1 gm=10 ml, Active Karen MG/ML Oral PO, Before 2017 Hospital Suspension Meals & Bedtime, # 200 ml, 1 Refill(s) Famotidine 20 MG 20 mg=1 tab, Active Karen Oral Tablet PO, BID, # 28 2017 Hospital tab, 0 Refill(s) tramadol 50 mg=1 tab, Active Karen hydrochloride 50 PO, Q6H, PRN 2017 Hospital MG Oral Tablet Pain, X 10 day, # 40 tab, 0 Refill(s) Zofran 4 mg, 2 mL, Inactive Karen Route: IVP, 2016 Hospital Drug form: INJ, ONCE, Dosing Weight 59.091, kg, Priority: STAT, Start date: 12/04/16 11:55:00 CDT, Stop date: 12/04/16 11:55:00 CDTNotes: (Same as: Zofran) MEDICATION WASTE Product Size: 4 mg Product Wasted: 0___ mg Morphine 4 mg, 1 mL, Inactive Karen Route: IVP, [address] [place] [address] Drug form: INJ, ONCE, Dosing Weight 59.091, kg, Priority: STAT, Start date: 12/04/16 11:55:00 CDT, Stop date: 12/04/16 11:55:00 CDTNotes: (Same as:MORPhine Sulfate) Famotidine 20 MG 20 mg=1 tab, Active Karen Oral Tablet PO, BID, # 14 2017 [facility] [Pepcid] tab, 0 Refill(s) ibuprofen 800 mg 800 mg, PO, Active Karen oral tablet TID, PRN Pain, 2017 [facility] Take with food, X 3 day, # 10 tab, 0 Refill(s) Sodium Chloride 25 mL, Route: Inactive Karen 0.9% IV IV, Start 2017 Hospital date: 10/22/16 13:00:00 CDT, Duration: 30 day, Stop date: 11/21/16 12:59:00 CDT, PRN Line Flush BD Normal Saline 10 mL, Route: Inactive Karen Flush IV, Drug Form: [address] [place] [address] INJ, PRN, PRN Line Flush, Start date: 10/22/16 13:00:00 CDT, Duration: 30 day, Stop date: 11/21/16 12:59:00 CDTNotes: (Same as: BD Posiflush) Famotidine 20 MG 20 mg, 1 tab, Inactive Karen Oral Tablet Route: PO, 2017 [facility] [Pepcid] Drug form: TAB, ONCE, Dosing Weight 59.091, kg, Start date: 10/22/16 12:17:00 CDT, Stop date: 10/22/16 12:17:00 CDTNotes: (Same as: Pepcid) Ibuprofen 800 mg, 1 tab, Inactive Karen Route: PO, [address] [place] [address] Drug form: TAB, ONCE, Dosing Weight 59.091, kg, Priority: STAT, Start date: 10/22/16 12:17:00 CDT, Stop date: 10/22/16 12:17:00 CDTNotes: (Same as: Motrin) Take with food. Sulfamethoxazole Bactrim DS 800 Active [facility] 800 MG / mg-160 mg Trimethoprim 160 tablet Take 1 MG Oral Tablet tablet twice a [Bactrim] day by oral route with meals for 5 days. Erythromycin erythromycin 5 Active [facility] 0.005 MG/MG mg/gram (0.5 Ophthalmic %) eye Ointment ointment APPLY 1 CM RIBBON INTO THE LOWER CONJUNCTIVAL SAC(S) IN THE AFFECTED EYE(S) BY OPHTHALMIC ROUTE 3 TIMES PER DAY Allergies, Adverse Reactions, Alerts No Known Medication Allergies Immunizations Immunization Date Given Site Status Last Comments Source Updated pneumococcal 11/09/2017 Not Given [facility] 23-valent vaccine [facility] influenza, 02/17/2016 completed [facility] injectable, quadrivalent Tdap 05/19/2013 completed [facility] Results Order Name Results Value Reference Date Interpretation Comments Source Range CHEM PANEL Ammonia 32.0 <=45.0 11/09 [facility] CHEM PANEL Globulin 4.1 2.7 - 4.2 11/09 [facility] CHEM PANEL Bili 0.8 0.0 - 1.0 11/09 Hospital CHEM PANEL A/G Ratio 0.8 0.7 - 1.6 11/09 Hospital CHEM PANEL ALT 32 0 - 65 11/09 [facility] CHEM PANEL AST 184 0 - 37 11/09 [facility] CHEM PANEL Albumin Lvl 3.4 3.5 - 5.0 11/09 [facility] CHEM PANEL Bili Total 2.6 0.2 - 1.3 11/09 [facility] CHEM PANEL Alk Phos 163 39 - 136 11/09 [facility] CHEM PANEL Bili Direct 1.8 0.0 - 0.3 11/09 [facility] CHEM PANEL Total 7.5 6.4 - 8.4 11/09 Hospital CHEM PANEL eGFR 133 11/08 [facility] Comment: The Hospital eGFR is calculated using the CKD-EPI formula. In most young, healthy individuals the eGFR will be >90 mL/min/1.73m2 . The eGFR declines with age. An eGFR of 60-89 may be normal in some populations, particularly the elderly, for whom the CKD-EPI formula has not been extensively validated. Use of the eGFR is not recommended in the following populations:< br/>
Shanique viduals with unstable creatinine concentration s, including patients and those with serious co-morbid conditions.<b r/>
Patie nts with extremes in muscle mass or diet.

The data above are obtained from the National Kidney Disease Education Program (NKDEP) which additionally recommends that when the eGFR is used in patients with extremes of body mass index for purposes of drug dosing, the eGFR should be multiplied by the estimated BMI. CHEM PANEL Chloride Lvl 102 95 - 109 11/08 [facility] CHEM PANEL CO2 28 24 - 32 11/08 [facility] CHEM PANEL Calcium Lvl 9.4 8.5 - 10.5 11/08 [facility] CHEM PANEL Albumin Lvl 3.4 3.5 - 5.0 11/08 [facility] CHEM PANEL Total 7.7 6.4 - 8.4 11/08 [facility] CHEM PANEL AST 179 0 - 37 11/08 [facility] CHEM PANEL ALT 33 0 - 65 11/08 [facility] CHEM PANEL Bili Total 3.2 0.2 - 1.3 11/08 [facility] CHEM PANEL Alk Phos 174 39 - 136 11/08 [facility] CHEM PANEL Creatinine 0.40 0.50 - 11/08 [facility] 1.40 [facility] CHEM PANEL BUN 2 7 - 22 11/08 [facility] CHEM PANEL Glucose Lvl 96 70 - 99 11/08 [facility] CHEM PANEL Potassium 3.7 3.5 - 5.1 11/08 [facility] CHEM PANEL Sodium Lvl 138 135 - 145 11/08 [facility] CHEM PANEL AGAP 11.7 10.0 - 11/08 [facility] 20.0 [facility] CHEM PANEL B/C Ratio 5 6 - 25 11/08 [facility] CHEM PANEL Globulin 4.3 2.7 - 4.2 11/08 [facility] CHEM PANEL A/G Ratio 0.8 0.7 - 1.6 11/08 [facility] CHEM PANEL Ammonia 63.0 <=45.0 11/08 [facility] HEMATOLOGY Eosinophils 0.7 0.0 - 4.0 11/08 [facility] HEMATOLOGY Monocytes 17.0 2.0 - 12.0 11/08 [facility] HEMATOLOGY Segs-Bands # 7.4 1.5 - 8.1 11/08 [facility] HEMATOLOGY Basophils # 0.1 0.0 - 0.2 11/08 [facility] HEMATOLOGY Monocytes # 1.8 0.0 - 0.8 11/08 [facility] HEMATOLOGY Eosinophils 0.1 0.0 - 0.5 11/08 Karen # [facility] HEMATOLOGY Macrocyte 3+ None Seen 11/08 [facility] *NA* /2017 [facility] (11/08/17 6:33 AM) HEMATOLOGY Lymphocytes 1.1 1.0 - 5.5 11/08 [facility] # [facility] HEMATOLOGY Basophils 1.0 0.0 - 1.0 11/08 [facility] HEMATOLOGY Lymphocytes 10.3 20.0 - 11/08 [facility] 40.0 [facility] HEMATOLOGY Segs 71.0 45.0 - 11/08 [facility] 75.0 [facility] HEMATOLOGY Plt Morph Normal 11/08 [facility] (11/08/17 6:33 AM) [facility] HEMATOLOGY MCH 38.2 27.0 - 11/08 [facility] 31.0 [facility] HEMATOLOGY Hct 35.0 36.0 - 11/08 [facility] 48.0 [facility] HEMATOLOGY MCV 111.1 80.0 - 11/08 [facility] 98.0 [facility] HEMATOLOGY RDW 15.6 11.5 - 11/08 [facility] 14.5 [facility] HEMATOLOGY MCHC 34.4 32.0 - 11/08 [facility] 36.0 [facility] HEMATOLOGY Platelet 248 133 - 450 11/08 [facility] HEMATOLOGY MPV 8.6 7.4 - 10.4 11/08 [facility] HEMATOLOGY Hgb 12.0 12.0 - 11/08 [facility] 16.0 [facility] HEMATOLOGY WBC 10.4 3.7 - 10.4 11/08 [facility] HEMATOLOGY RBC 3.15 4.20 - 11/08 [facility] 5.40 /2017 [facility] CHEM PANEL eGFR 125 11/07 Result Comment: The Hospital eGFR is calculated using the CKD-EPI formula. In most young, healthy individuals the eGFR will be >90 mL/min/1.73m2 . The eGFR declines with age. An eGFR of 60-89 may be normal in some populations, particularly the elderly, for whom the CKD-EPI formula has not been extensively validated. Use of the eGFR is not recommended in the following populations:< br/>
Shanique viduals with unstable creatinine concentration s, including patients and those with serious co-morbid conditions.<b r/>
Patie nts with extremes in muscle mass or diet.

The data above are obtained from the [employer] Kid[employer] Education Program (NKDEP) which additionally recommends that when the eGFR is used in patients with extremes of body mass index for purposes of drug dosing, the eGFR should be multiplied by the estimated BMI. CHEM PANEL Chloride Lvl 106 95 - 109 11/07 [facility] CHEM PANEL Sodium Lvl 138 135 - 145 11/07 [facility] CHEM PANEL Potassium 4.4 3.5 - 5.1 11/07 [facility] CHEM PANEL AGAP 15.4 10.0 - 11/07 [facility] 20.0 [facility] CHEM PANEL Calcium Lvl 10.3 8.5 - 10.5 11/07 [facility] CHEM PANEL CO2 21 24 - 32 11/07 [facility] CHEM PANEL BUN 2 7 - 22 11/07 [facility] CHEM PANEL Creatinine 0.48 0.50 - 11/07 Karen Lvl 1.40 /2017 [facility] CHEM PANEL Glucose Lvl 87 70 - 99 11/07 [facility] CHEM PANEL Phosphorus 3.1 2.5 - 4.5 11/07 [facility] CHEM PANEL BUN 3 7 - 22 11/06 [facility] CHEM PANEL Sodium Lvl 142 135 - 145 11/06 [facility] CHEM PANEL Potassium 3.9 3.5 - 5.1 11/06 Karen Lvl /2017 [facility] CHEM PANEL Creatinine 0.40 0.50 - 11/06 Lvl 1.40 /2017 Hospital CHEM PANEL CO2 21 24 - 32 11/06 [facility] CHEM PANEL Chloride Lvl 109 95 - 109 11/06 [facility] CHEM PANEL Total 7.0 6.4 - 8.4 11/06 [facility] CHEM PANEL Albumin Lvl 3.2 3.5 - 5.0 11/06 [facility] CHEM PANEL Calcium Lvl 8.3 8.5 - 10.5 11/06 [facility] CHEM PANEL Glucose Lvl 78 70 - 99 11/06 [facility] CHEM PANEL eGFR 132 11/06 [facility] Comment: The Hospital eGFR is calculated using the CKD-EPI formula. In most young, healthy individuals the eGFR will be >90 mL/min/1.73m2 . The eGFR declines with age. An eGFR of 60-89 may be normal in some populations, particularly the elderly, for whom the CKD-EPI formula has not been extensively validated. Use of the eGFR is not recommended in the following populations:< br/>
Shanique viduals with unstable creatinine concentration s, including patients and those with serious co-morbid conditions.<b r/>
Patie nts with extremes in muscle mass or diet.

The data above are obtained from the National Kidney Disease Education Program (NKDEP) which additionally recommends that when the eGFR is used in patients with extremes of body mass index for purposes of drug dosing, the eGFR should be multiplied by the estimated BMI. CHEM PANEL AST 292 0 - 37 11/06 [facility] CHEM PANEL ALT 32 0 - 65 11/06 [facility] CHEM PANEL Alk Phos 148 39 - 136 11/06 [facility] CHEM PANEL Bili Total 2.7 0.2 - 1.3 11/06 Hospital CHEM PANEL Globulin 3.8 2.7 - 4.2 11/06 Hospital CHEM PANEL AGAP 15.9 10.0 - 11/06 20.0 Hospital CHEM PANEL B/C Ratio 8 6 - 25 11/06 Hospital CHEM PANEL A/G Ratio 0.8 0.7 - 1.6 11/06 Hospital CHEM PANEL Magnesium 2.3 1.8 - 2.4 11/06 Karen l [facility] CHEM PANEL Phosphorus 2.0 2.5 - 4.5 11/06 Karen [facility] CHEM PANEL Magnesium 2.5 1.8 - 2.4 11/05 Karen Lvl [facility] CHEM PANEL B/C Ratio 4 6 - 25 11/05 [facility] CHEM PANEL Phosphorus 2.2 2.5 - 4.5 11/05 Karen [facility] HEMATOLOGY MCH 37.8 27.0 - 11/05 Karen 31.0 [facility] HEMATOLOGY RDW 15.7 11.5 - 11/05 Karen 14.5 Hospital HEMATOLOGY MCHC 33.8 32.0 - 11/05 Karen 36.0 Hospital HEMATOLOGY MPV 9.3 7.4 - 10.4 11/05 [facility] HEMATOLOGY Platelet 142 133 - 450 11/05 [facility] HEMATOLOGY Hgb 11.4 12.0 - 11/05 Karen 16.0 Hospital HEMATOLOGY WBC 9.9 3.7 - 10.4 11/05 [facility] HEMATOLOGY RBC 3.00 4.20 - 11/05 Karen 5.40 [facility] HEMATOLOGY Hct 33.6 36.0 - 11/05 Karen 48.0 [facility] HEMATOLOGY MCV 111.8 80.0 - 11/05 Akren 98.0 [facility] HEMATOLOGY Segs 92.9 45.0 - 11/05 Karen 75.0 [facility] HEMATOLOGY Macrocyte 3+ None Seen 11/05 Karen *NA* /2017 [facility] (11/05/17 4:33 AM) HEMATOLOGY Segs-Bands # 9.2 1.5 - 8.1 11/05 Karen [facility] HEMATOLOGY Lymphocytes 0.4 1.0 - 5.5 11/05 Karen # /2017 Hospital HEMATOLOGY Monocytes # 0.3 0.0 - 0.8 11/05 [facility] HEMATOLOGY Basophils 0.2 0.0 - 1.0 11/05 Karen [facility] HEMATOLOGY Lymphocytes 3.9 20.0 - 11/05 Karen 40.0 [facility] HEMATOLOGY Monocytes 3.0 2.0 - 12.0 11/05 [facility] HEMATOLOGY Plt Morph Normal 11/05 Karen (11/05/17 4:33 AM) /2017 Hospital DRUG SCREEN U Amph Scr Negative Negative 11/05 Karen *NA* /2017 Hospital (11/04/17 9:35 PM) DRUG SCREEN U Gema Scr Negative Negative 11/05 Karen *NA* /2017 [facility] (11/04/17 9:35 PM) DRUG SCREEN U Benzodia Negative Negative 11/05 Karen Scr *NA* /2017 Hospital (11/04/17 9:35 PM) DRUG SCREEN U Cocaine Negative Negative 11/05 Karen Scr *NA* [facility] (11/04/17 9:35 PM) DRUG SCREEN U Phencyc Negative Negative 11/05 Karen Scr *NA* [facility] (11/04/17 9:35 PM) DRUG SCREEN U Cannab Scr Negative Negative 11/05 Karen *NA* [facility] (11/04/17 9:35 PM) DRUG SCREEN U Opiate Scr Negative Negative 11/05 Karen *NA* [facility] (11/04/17 9:35 PM) DRUG SCREEN UDS Note See Note 11/05 Karen *NA* [facility] (11/04/17 9:35 PM) URINE AND UA Mucus Few /LPF None Seen 11/04 Karen STOOL /LPF /2017 Hospital URINE AND UA Sq Epi Many /LPF Few /LPF 11/04 Karen STOOL /2017 Hospital URINE AND UA WBC 6 0 - 5 11/04 Karen STOOL /2017 Hospital URINE AND UA RBC <1 0 - 2 11/04 [facility] STOOL [facility] URINE AND UA Bacteria Occasional None Seen 11/04 Karen STOOL /HPF /HPF /2017 Hospital URINE AND UA <=1.0 0.1 - 1.0 11/04 Karen STOOL Urobilinogen mg/dL /2017 Hospital URINE AND UA Blood Negative Negative 11/04 Karen STOOL (11/04/17 1:31 PM) Hospital URINE AND UA Leuk Est Negative Negative 11/04 [facility] STOOL (11/04/17 1:31 PM) Hospital URINE AND UA Nitrite Negative Negative 11/04 Karen STOOL (11/04/17 1:31 PM) Hospital URINE AND UA Bili Negative Negative 11/04 Karen STOOL *NA* /2017 Hospital (11/04/17 1:31 PM) URINE AND UA Ketones Negative Negative 11/04 Karen STOOL mg/dL mg/dL Hospital URINE AND UA Color Yellow Yellow 11/04 Karen STOOL *NA* /2017 [facility] (11/04/17 1:31 PM) URINE AND UA Turbidity Clear Clear 11/04 Karen STOOL (11/04/17 1:31 PM) /2017 Hospital URINE AND UA pH 7.0 5.0 - 8.0 11/04 Karen STOOL /2017 Hospital URINE AND UA Spec Grav 1.009 <=1.030 11/04 Karen STOOL [facility] URINE AND UA Protein Negative Negative 11/04 Karen STOOL mg/dL mg/dL Hospital URINE AND UA Glucose Negative Negative 11/04 Karen STOOL mg/dL mg/dL [facility] BACTERIAL - MRSA by PCR Negative 11/04 Karen [facility]OLOGY (11/04/17 10:42 AM) /2017 [facility] CHEM PANEL Magnesium 1.5 1.8 - 2.4 11/04 Karen Lvl /2017 [facility] CHEM PANEL Lipase Lvl 156 73 - 393 11/04 Karen [facility] ENDOCRINOLO S Preg Negative Negative 11/04 Karen GY *NA* /2017 [facility] (11/04/17 5:19 AM) HEMATOLOGY Basophils # 0.1 0.0 - 0.2 11/04 Karen [facility] HEMATOLOGY Monocytes # 0.6 0.0 - 0.8 11/04 Karen [facility] HEMATOLOGY Macrocyte 3+ None Seen 11/04 Karen *NA* /2017 [facility] (11/04/17 5:19 AM) HEMATOLOGY Segs-Bands # 8.3 1.5 - 8.1 11/04 Karen [facility] HEMATOLOGY Basophils 0.9 0.0 - 1.0 11/04 Karen [facility] HEMATOLOGY Lymphocytes 0.7 1.0 - 5.5 11/04 Karne # /2017 [facility] HEMATOLOGY Lymphocytes 7.6 20.0 - 11/04 Karen 40.0 [facility] HEMATOLOGY Segs 85.0 45.0 - 11/04 Karen 75.0 [facility] HEMATOLOGY Monocytes 6.4 2.0 - 12.0 11/04 [facility] HEMATOLOGY Eosinophils 0.1 0.0 - 4.0 11/04 Karen /2017 [facility] HEMATOLOGY RDW 15.8 11.5 - 11/04 MH Karen 14.5 /2017 [facility] HEMATOLOGY Platelet 156 133 - 450 11/04 Karen /2017 [facility] HEMATOLOGY Hgb 12.4 12.0 - 11/04 MH Karen 16.0 /2017 [facility] HEMATOLOGY RBC 3.24 4.20 - 11/04 Karen 5.40 /2017 [facility] HEMATOLOGY MCV 110.3 80.0 - 11/04 Karen 98.0 [facility] HEMATOLOGY Hct 35.8 36.0 - 11/04 MH Karen 48.0 /2017 [facility] HEMATOLOGY MPV 8.3 7.4 - 10.4 11/04 Karen /2017 [facility] HEMATOLOGY MCH 38.1 27.0 - 11/04 Karen 31.0 [facility] HEMATOLOGY MCHC 34.6 32.0 - 11/04 MH Karen 36.0 /2017 [facility] HEMATOLOGY WBC 9.8 3.7 - 10.4 11/04 [facility] URINE AND UA Nitrite Negative Negative 11/04 Karen STOOL (11/04/17 5:19 AM) /2017 [facility] URINE AND UA Leuk Est Moderate Negative 11/04 Karen STOOL *ABN* /2017 [facility] (11/04/17 5:19 AM) URINE AND UA Blood Negative Negative 11/04 Karen STOOL (11/04/17 5:19 AM) /2017 [facility] URINE AND UA Bili Negative Negative 11/04 Karen STOOL *NA* /2017 [facility] (11/04/17 5:19 AM) URINE AND UA 4.0 0.1 - 1.0 11/04 Karen STOOL Urobilinogen /2017 [facility] URINE AND UA WBC 31 0 - 5 11/04 Karen STOOL /2017 [facility] URINE AND UA Sq Epi Many /LPF Few /LPF 11/04 Karen STOOL /2017 Hospital URINE AND UA Bacteria Many /HPF None Seen 11/04 Karen STOOL /HPF /2017 [facility] URINE AND UA Mucus Moderate None Seen 11/04 Karen STOOL /LPF /LPF /2017 [facility] URINE AND UA Color Pamela Yellow 11/04 Karen STOOL *ABN* /2017 [facility] (11/04/17 5:19 AM) URINE AND UA Turbidity Marked Clear 11/04 Karen STOOL *ABN* /2017 [facility] (11/04/17 5:19 AM) URINE AND UA Protein 100 mg/dL Negative 11/04 Karen STOOL mg/dL /2017 Hospital URINE AND UA Glucose Negative Negative 11/04 Karen STOOL mg/dL mg/dL [facility] URINE AND UA Ketones Trace Negative 11/04 Karen STOOL mg/dL mg/dL [facility] URINE AND UA Spec Grav 1.014 <=1.030 11/04 Karen STOOL /2017 Hospital URINE AND UA pH 6.0 5.0 - 8.0 11/04 Karen STOOL /2017 Hospital Culture: <10,000 11/04 Karen Urine CFU/mL /2017 [facility] CHEM PANEL Lactic Acid 2.6 0.5 - 2.2 08/23 Karen Lvl [facility] CHEM PANEL Lactic Acid 3.7 0.5 - 2.2 08/23 Karen Lvl [facility] HEMATOLOGY Basophils 1.0 0.0 - 1.0 08/23 Karen [facility] HEMATOLOGY Segs-Bands # 4.5 1.5 - 8.1 08/23 Karen [facility] HEMATOLOGY Lymphocytes 0.7 1.0 - 5.5 08/23 Karen # /2017 [facility] HEMATOLOGY Monocytes # 0.5 0.0 - 0.8 08/23 Karen [facility] HEMATOLOGY Basophils # 0.1 0.0 - 0.2 08/23 Karen [facility] HEMATOLOGY Macrocyte 2+ None Seen 08/23 Karen *ABN* /2017 [facility] (08/23/17 3:58 AM) HEMATOLOGY Segs 77.7 45.0 - 08/23 Karen 75.0 [facility] HEMATOLOGY Lymphocytes 11.9 20.0 - 04 Karen 40.0 [facility] HEMATOLOGY Monocytes 9.1 2.0 - 12.0 04 Karen [facility] HEMATOLOGY Eosinophils 0.3 0.0 - 4.0 04 Karen [facility] HEMATOLOGY RBC 3.36 4.20 - 04 Karen 5.40 [facility] HEMATOLOGY Hgb 12.4 12.0 - 04 Karen 16.0 [facility] HEMATOLOGY MCV 107.0 80.0 - 04 Karen 98.0 [facility] HEMATOLOGY MCH 36.9 27.0 - 04 Karen 31.0 /2017 [facility] HEMATOLOGY WBC 5.8 3.7 - 10.4 08/23 Karen [facility] HEMATOLOGY Hct 35.9 36.0 - 08/23 Karen 48.0 /2017 [facility] HEMATOLOGY MCHC 34.5 32.0 - 08/23 Karen 36.0 [facility] HEMATOLOGY RDW 15.8 11.5 - 08/23 Karen 14.5 /2017 [facility] HEMATOLOGY Platelet 174 133 - 450 08/23 Karen [facility] HEMATOLOGY MPV 7.6 7.4 - 10.4 08/23 [facility] CHEM PANEL Lactic Acid 5.2 0.5 - 2.2 08/23 Result Karen Lvl Comment: Hospital Critical Result(s) called to Romeo Appiah RN at 08/23/2017 02:35 by al. Read back OK. TOXICOLOGY Ethanol Lvl 217 08/23 Karen [facility] TOXICOLOGY Etoh (%) 0.217 08/23 [facility] URINE AND UA <=1.0 0.1 - 1.0 08/23 Karen STOOL Urobilinogen mg/dL /2017 Hospital URINE AND UA RBC <1 0 - 2 08/23 Karen STOOL [facility] URINE AND UA Mucus Few /LPF None Seen 08/23 Karen STOOL /LPF /2017 Hospital URINE AND UA Sq Epi Few /LPF Few /LPF 08/23 Karen STOOL Hospital URINE AND UA WBC 1 0 - 5 08/23 Karen STOOL [facility] URINE AND UA Nitrite Negative Negative 08/23 Karen STOOL (08/22/17 11:10 PM) Hospital URINE AND UA Leuk Est Negative Negative 08/23 Karen STOOL (08/22/17 11:10 PM) Hospital URINE AND UA Blood Moderate Negative 08/23 Karen STOOL *ABN* /2017 Hospital (08/22/17 11:10 PM) URINE AND UA pH 6.0 5.0 - 8.0 08/23 Karen STOOL [facility] URINE AND UA Protein Negative Negative 08/23 Karen STOOL mg/dL mg/dL Hospital URINE AND UA Ketones 20 mg/dL Negative 08/23 Karen STOOL mg/dL Hospital URINE AND UA Bili Negative Negative 08/23 Karen STOOL *NA* /2017 [facility] (08/22/17 11:10 PM) URINE AND UA Glucose Negative Negative 08/23 Karen STOOL mg/dL mg/dL [facility] URINE AND UA Spec Grav 1.006 <=1.030 08/23 Karen STOOL [facility] URINE AND UA Color Light Yellow Yellow 08/23 Karen STOOL *NA* /2017 [facility] (08/22/17 11:10 PM) URINE AND UA Turbidity Clear Clear 08/23 Karen STOOL (08/22/17 11:10 PM) [facility] BLOOD BANK ABO/Rh A POS 08/23 Karen RESULTS [facility] BLOOD BANK Antibody Negative 08/23 Karen RESULTS Scrn (08/22/17 9:52 PM) [facility] CARDIAC CK MB Index <0.6 0.0 - 2.5 08/23 Karen ENZYMES [facility] CARDIAC CK MB <0.5 0.5 - 3.6 08/23 Karen ENZYMES [facility] CARDIAC Troponin-I <0.02 0.00 - 08/23 Karen ENZYMES 0.40 [facility] CARDIAC Total CK 78 12 - 191 08/23 Karen ENZYMES [facility] CHEM PANEL eGFR 118 08/23 Result Comment: The Hospital eGFR is calculated using the CKD-EPI formula. In most young, healthy individuals the eGFR will be >90 mL/min/1.73m2 . The eGFR declines with age. An eGFR of 60-89 may be normal in some populations, particularly the elderly, for whom the CKD-EPI formula has not been extensively validated. Use of the eGFR is not recommended in the following populations:< br/>
Shanique viduals with unstable creatinine concentration s, including patients and those with serious co-morbid conditions.<b r/>
Patie nts with extremes in muscle mass or diet.

The data above are obtained from the National Kidney Disease Education Program (NKDEP) which additionally recommends that when the eGFR is used in patients with extremes of body mass index for purposes of drug dosing, the eGFR should be multiplied by the estimated BMI. CHEM PANEL Sodium Lvl 135 135 - 145 08/23 [facility] CHEM PANEL BUN 7 7 - 22 08/23 Hospital CHEM PANEL Creatinine 0.57 0.50 - 04 Karen Lvl 1.40 /2017 Hospital CHEM PANEL Glucose Lvl 67 70 - 99 08/23 [facility] CHEM PANEL Calcium Lvl 8.9 8.5 - 10.5 08/23 [facility] CHEM PANEL Total 8.8 6.4 - 8.4 08/23 [facility] CHEM PANEL Potassium 3.3 3.5 - 5.1 08/23 Karen Lvl /2017 Hospital CHEM PANEL Chloride Lvl 92 95 - 109 08/23 [facility] CHEM PANEL CO2 21 24 - 32 04 [facility] CHEM PANEL Albumin Lvl 4.7 3.5 - 5.0 08/23 Karen [facility] CHEM PANEL ALT 40 0 - 65 08/23 Karen [facility] CHEM PANEL Alk Phos 129 39 - 136 08/23 Karen [facility] CHEM PANEL Bili Total 0.8 0.2 - 1.3 08/23 Karen [facility] CHEM PANEL AST 400 0 - 37 08/23 Karen [facility] CHEM PANEL AGAP 25.3 10.0 - 04 Karen 20.0 Hospital CHEM PANEL B/C Ratio 12 6 - 25 08/23 Karen [facility] CHEM PANEL Globulin 4.1 2.7 - 4.2 08/23 Karen [facility] CHEM PANEL A/G Ratio 1.1 0.7 - 1.6 08/23 Karen [facility] CHEM PANEL Magnesium 1.9 1.8 - 2.4 08/23 Karen Lvl /2017 [facility] ENDOCRINOLO S Preg Negative Negative 08/23 Karen GY *NA* /2017 [facility] (08/22/17 9:52 PM) HEMATOLOGY Segs-Bands # 3.9 1.5 - 8.1 08/23 Karen [facility] HEMATOLOGY Monocytes # 0.5 0.0 - 0.8 08/23 Karen [facility] HEMATOLOGY Lymphocytes 1.3 1.0 - 5.5 08/23 Karen # /2017 [facility] HEMATOLOGY Basophils # 0.1 0.0 - 0.2 08/23 [facility] HEMATOLOGY Macrocyte 2+ None Seen 08/23 Karen *ABN* /2017 [facility] (08/22/17 9:52 PM) HEMATOLOGY Monocytes 9.1 2.0 - 12.0 08/23 MH Karen /2017 [facility] HEMATOLOGY Eosinophils 0.5 0.0 - 4.0 08/23 Karen /2017 [facility] HEMATOLOGY Basophils 0.9 0.0 - 1.0 08/23 Karen /2017 [facility] HEMATOLOGY Lymphocytes 22.1 20.0 - 08/23 Karen 40.0 [facility] HEMATOLOGY Segs 67.4 45.0 - 08/23 Karen 75.0 [facility] HEMATOLOGY MPV 7.5 7.4 - 10.4 08/23 Karen [facility] HEMATOLOGY Platelet 202 133 - 450 04 Karen [facility] HEMATOLOGY RDW 15.9 11.5 - 08/23 Karen 14.5 [facility] HEMATOLOGY MCHC 34.4 32.0 - 08/23 Karen 36.0 [facility] HEMATOLOGY MCH 36.8 27.0 - 08/23 Karen 31.0 [facility] HEMATOLOGY Hct 39.8 36.0 - 08/23 Karen 48.0 [facility] HEMATOLOGY MCV 107.0 80.0 - 08/23 Karen 98.0 [facility] HEMATOLOGY Hgb 13.7 12.0 - 08/23 Karen 16.0 [facility] HEMATOLOGY RBC 3.72 4.20 - 08/23 Karen 5.40 [facility] HEMATOLOGY WBC 5.8 3.7 - 10.4 08/23 Karen /2017 [facility] TRIMETHOPRI Culture: >100,000 08/05 Karen M+SULFAMETH Urine CFU/mL /2017 [facility] OXAZOLE:TANIA Escherichi C:PT:ISOLAT a coli E:ORDQN:CELENA TRIMETHOPRI Escherichia Escherichi 08/05 MH Karen M+SULFAMETH coli a coli /2017 [facility] OXAZOLE:TANIA C:PT:ISOLAT E:ORDQN:CELENA URINE AND UA <=1.0 0.1 - 1.0 08/05 Karen STOOL Urobilinogen mg/dL /2017 Hospital URINE AND UA Bacteria Occasional None Seen 08/05 MH Karen STOOL /HPF /HPF /2017 Hospital URINE AND UA RBC 1 0 - 2 08/05 MH Karen STOOL /2017 Hospital URINE AND UA WBC 27 0 - 5 08/05 MH Karen STOOL /2017 Hospital URINE AND UA Leuk Est Small Negative 08/05 Karen STOOL *ABN* /2017 [facility] (08/05/17 3:53 AM) URINE AND UA Sq Epi Many /LPF Few /LPF 08/05 Karen STOOL [facility] URINE AND UA Nitrite Positive Negative 08/05 Karen STOOL *ABN* /2017 [facility] (08/05/17 3:53 AM) URINE AND UA Mucus Few /LPF None Seen 08/05 Karen STOOL /LPF /2017 [facility] URINE AND UA Ketones 20 mg/dL Negative 08/05 Karen STOOL mg/dL /2017 [facility] URINE AND UA Blood Negative Negative 08/05 Karen STOOL (08/05/17 3:53 AM) /2017 [facility] URINE AND UA pH 5.0 5.0 - 8.0 08/05 Karen STOOL [facility] URINE AND UA Glucose Negative Negative 08/05 Karen STOOL mg/dL mg/dL [facility] URINE AND UA Protein 30 mg/dL Negative 08/05 Karen STOOL mg/dL [facility] URINE AND UA Bili Negative Negative 08/05 Karen STOOL *NA* /2017 [facility] (08/05/17 3:53 AM) URINE AND UA Spec Grav 1.016 <=1.030 08/05 Karen STOOL /2017 [facility] URINE AND UA Turbidity Marked Clear 08/05 Karen STOOL *ABN* /2017 [facility] (08/05/17 3:53 AM) URINE AND UA Color Yellow Yellow 08/05 Karen STOOL *NA* /2017 [facility] (08/05/17 3:53 AM) CHEM PANEL Lipase Lvl 172 73 - 393 08/05 [facility] CHEM PANEL eGFR 115 08/05 Result Karen Comment: The Hospital eGFR is calculated using the CKD-EPI formula. In most young, healthy individuals the eGFR will be >90 mL/min/1.73m2 . The eGFR declines with age. An eGFR of 60-89 may be normal in some populations, particularly the elderly, for whom the CKD-EPI formula has not been extensively validated. Use of the eGFR is not recommended in the following populations:< br/>
Shanique viduals with unstable creatinine concentration s, including patients and those with serious co-morbid conditions.<b r/>
Patie nts with extremes in muscle mass or diet.

The data above are obtained from the National Kidney Disease Education Program (NKDEP) which additionally recommends that when the eGFR is used in patients with extremes of body mass index for purposes of drug dosing, the eGFR should be multiplied by the estimated BMI. CHEM PANEL Creatinine 0.62 0.50 - 08/05 [facility] Lvl 1.40 [facility] CHEM PANEL BUN 4 7 - 22 08/05 [facility] CHEM PANEL Potassium 3.7 3.5 - 5.1 08/05 [facility] Lvl [facility] CHEM PANEL Chloride Lvl 99 95 - 109 08/05 [facility] CHEM PANEL Sodium Lvl 139 135 - 145 08/05 [facility] CHEM PANEL Glucose Lvl 100 70 - 99 08/05 [facility] CHEM PANEL Calcium Lvl 8.7 8.5 - 10.5 08/05 [facility] CHEM PANEL ALT 42 0 - 65 08/05 Hospital CHEM PANEL Total 9.1 6.4 - 8.4 08/05 [facility] CHEM PANEL CO2 21 24 - 32 08/05 Hospital CHEM PANEL Albumin Lvl 4.7 3.5 - 5.0 08/05 Hospital CHEM PANEL Alk Phos 104 39 - 136 08/05 Hospital CHEM PANEL Bili Total 0.5 0.2 - 1.3 08/05 Hospital CHEM PANEL AST 240 0 - 37 08/05 Hospital CHEM PANEL A/G Ratio 1.1 0.7 - 1.6 08/05 Hospital CHEM PANEL Globulin 4.4 2.7 - 4.2 08/05 [facility] CHEM PANEL B/C Ratio 6 6 - 25 08/05 [facility] CHEM PANEL AGAP 22.7 10.0 - 08/05 Karen 20.0 [facility] CHEM PANEL Magnesium 2.0 1.8 - 2.4 08/05 Karen Lvl [facility] ENDOCRINOLO S Preg Negative Negative 08/05 GY *NA* /2017 Hospital (08/05/17 1:39 AM) HEMATOLOGY Macrocyte 2+ None Seen 08/05 Karen *ABN* /2018 Hospital (08/05/17 1:39 AM) HEMATOLOGY Lymphocytes 1.3 1.0 - 5.5 08/05 MH Karen # /2017 Hospital HEMATOLOGY Basophils # 0.1 0.0 - 0.2 03 [facility] HEMATOLOGY Eosinophils 0.5 0.0 - 4.0 03 MH [facility] HEMATOLOGY Monocytes # 0.5 0.0 - 0.8 08/05 [facility] HEMATOLOGY Segs-Bands # 5.3 1.5 - 8.1 03 [facility] HEMATOLOGY Basophils 1.2 0.0 - 1.0 08/05 [facility] HEMATOLOGY Lymphocytes 17.7 20.0 - 08/05 Karen 40.0 [facility] HEMATOLOGY Monocytes 6.7 2.0 - 12.0 08/05 [facility] HEMATOLOGY Segs 73.9 45.0 - 08/05 [place] 75.0 [facility] HEMATOLOGY PTT 26.1 22.9 - 08/05 Karen 35.8 Hospital HEMATOLOGY INR 1.05 0.85 - 08/05 Karen 1.17 Hospital HEMATOLOGY PT 13.7 12.0 - 08/05 Karen 14.7 Hospital HEMATOLOGY MPV 7.4 7.4 - 10.4 08/05 [facility] HEMATOLOGY MCV 107.0 80.0 - 08/05 Karen 98.0 [facility] HEMATOLOGY MCH 36.7 27.0 - 08/05 Karen 31.0 [facility] HEMATOLOGY Platelet 253 133 - 450 08/05 [facility] HEMATOLOGY MCHC 34.3 32.0 - 08/05 Karen 36.0 [facility] HEMATOLOGY RDW 16.1 11.5 - 08/05 Karen 14.5 [facility] HEMATOLOGY RBC 3.84 4.20 - 08/05 Karen 5.40 [facility] HEMATOLOGY Hgb 14.1 12.0 - 08/05 Karen 16.0 [facility] HEMATOLOGY Hct 41.1 36.0 - 08/05 Karen 48.0 Hospital HEMATOLOGY WBC 7.1 3.7 - 10.4 08/05 [facility] BACTERIAL - Strep Negative Negative 01/25 Karen SEROLOGY pneumoniae (01/25/17 6:32 AM) /2016 Hospital Ag BACTERIAL - Source Strep Urine 01/25 Karen SEROLOGY *NA* /2016 Hospital (01/25/17 6:32 AM) CHEM PANEL Lactic Acid 0.9 0.5 - 2.2 01/25 Hospital PARATHYROID Ca Ion WB 0.93 1.05 - 01/25 Karen PROFILE 1. Hospital PARATHYROID Ca Norm WB 0.96 1.05 - 01/25 Karen PROFILE 06.12 Hospital CHEM PANEL eGFR 116 01/25 Result Comment: The Hospital eGFR is calculated using the CKD-EPI formula. In most young, healthy individuals the eGFR will be >90 mL/min/1.73m2 . The eGFR declines with age. An eGFR of 60-89 may be normal in some populations, particularly the elderly, for whom the CKD-EPI formula has not been extensively validated. Use of the eGFR is not recommended in the following populations:< br/>
Shanique viduals with unstable creatinine concentration s, including patients and those with serious co-morbid conditions.<b r/>
Patie nts with extremes in muscle mass or diet.

The data above are obtained from the National Kidney Disease Education Program (NKDEP) which additionally recommends that when the eGFR is used in patients with extremes of body mass index for purposes of drug dosing, the eGFR should be multiplied by the estimated BMI. CHEM PANEL Bili Total 0.6 0.2 - 1.3 01/25 Hospital CHEM PANEL AST 122 0 - 37 01/25 Hospital CHEM PANEL Alk Phos 89 39 - 136 01/25 Hospital CHEM PANEL A/G Ratio 1.0 0.7 - 1.6 01/25 Hospital CHEM PANEL ALT 17 0 - 65 01/25 Hospital CHEM PANEL Globulin 3.6 2.7 - 4.2 01/25 Hospital CHEM PANEL Albumin Lvl 3.6 3.5 - 5.0 01/25 Hospital CHEM PANEL Potassium 3.5 3.5 - 5.1 01/25 Hospital CHEM PANEL Sodium Lvl 137 135 - 145 01/25 Hospital CHEM PANEL Chloride Lvl 105 95 - 109 01/25 Hospital CHEM PANEL AGAP 14.5 10.0 - 01/25 Karen 20.0 [facility] CHEM PANEL CO2 21 24 - 32 01/25 Hospital CHEM PANEL B/C Ratio 3 6 - 25 01/25 Hospital CHEM PANEL Calcium Lvl 6.8 8.5 - 10.5 01/25 Result Comment: Hospital Critical Result(s) called to Talha HALL at 01/25/2017 02:59 by [facility]. Read back OK. CHEM PANEL Total 7.2 6.4 - 8.4 01/25 Hospital CHEM PANEL BUN 2 7 - 22 01/25 Hospital CHEM PANEL Glucose Lvl 109 70 - 99 01/25 Hospital CHEM PANEL Creatinine 0.61 0.50 - 01/25 Karen Lvl 1.40 [facility] CHEM PANEL Magnesium 2.2 1.8 - 2.4 01/25 [facility] CHEM PANEL Lactic Acid 2.2 0.5 - 2.2 01/25 [facility] CHEM PANEL Ammonia 76.0 <=45.0 01/25 Karen uMol/L Hospital HEMATOLOGY RBC 3.11 4.20 - 01/25 Karen 5.40 [facility] HEMATOLOGY Hgb 11.7 12.0 - 01/25 Karen 16.0 [facility] HEMATOLOGY Hct 33.8 36.0 - 01/25 Karen 48.0 Hospital HEMATOLOGY WBC 8.3 3.7 - 10.4 01/25 [facility] HEMATOLOGY MCH 37.7 27.0 - 01/25 Karen 31.0 Hospital HEMATOLOGY MPV 8.5 7.4 - 10.4 01/25 [facility] HEMATOLOGY MCV 108.9 80.0 - 01/25 Karen 98.0 Hospital HEMATOLOGY RDW 14.2 11.5 - 01/25 Karen 14.5 Hospital HEMATOLOGY Platelet 160 133 - 450 01/25 [facility] HEMATOLOGY MCHC 34.6 32.0 - 01/25 [facility]0 [facility] HEMATOLOGY Monocytes # 0.4 0.0 - 0.8 01/25 [facility] /2016 [facility] HEMATOLOGY Segs 79.0 45.0 - 01/25 [facility] 75.0 /2016 [facility] HEMATOLOGY Monocytes 5.0 2.0 - 12.0 01/25 [facility] /2016 [facility] HEMATOLOGY Lymphocytes 11.0 20.0 - 01/25 [facility] 40[facility]0 [facility] HEMATOLOGY Bands 5.0 0.0 - 11.0 01/25 [facility] /2016 [facility] HEMATOLOGY Plt Morph Normal 01/25 [facility] (01/25/17 1:56 AM) /2016 [facility] HEMATOLOGY Atypical 0.0 <=0.0 % 01/25 Karen Lymphs /2016 [facility] HEMATOLOGY Segs-Bands # 7.0 1.5 - 8.1 01/25 Karen [facility] HEMATOLOGY Lymphocytes 0.9 1.0 - 5.5 01/25 Karen # /2016 [facility] VIRAL - Influ B Negative Negative 01/25 Karen SEROLOGY (01/24/17 11:12 PM) [facility] VIRAL - Influ A Negative Negative 01/25 Karen SEROLOGY (01/24/17 11:12 PM) /2016 [facility] ANEMIA Folate Lvl 5.0 >=3.0 01/25 Karen STUDY ng/mL /2016 Hospital ANEMIA Vitamin B12 1397 254 - 1320 01/25 Karen STUDY Lvl /2016 Hospital CHEM PANEL Lactic Acid 13.6 0.5 - 2.2 01/25 Result Karen Lvl Comment: Hospital Critical Result(s) called to amy schmidt at 01/24/2017 21:25 by marisol. Read back OK. ELECTROLYTE Chloride Lvl 99 95 - 109 01/25 [facility] ELECTROLYTE Calcium Lvl 7.6 8.5 - 10.5 01/25 [facility] ELECTROLYTE Total 8.3 6.4 - 8.4 01/25 [facility] ELECTROLYTE B/C Ratio 3 6 - 25 01/25 [facility] ELECTROLYTE CO2 16 24 - 32 01/25 [facility] ELECTROLYTE Creatinine 1.11 0.50 - 01/25 Karen S Lvl 1.40 /2016 Hospital ELECTROLYTE BUN 3 7 - 22 01/25 [facility] ELECTROLYTE Glucose Lvl 113 70 - 99 01/25 Hospital ELECTROLYTE AGAP 22.2 10.0 - 01/25 Karen S 20.0 Hospital ELECTROLYTE Potassium 3.2 3.5 - 5.1 01/25 [facility] ELECTROLYTE Sodium Lvl 134 135 - 145 01/25 Hospital ELECTROLYTE Bili Total 0.8 0.2 - 1.3 01/25 Hospital ELECTROLYTE Alk Phos 105 39 - 136 01/25 Hospital ELECTROLYTE ALT 22 0 - 65 01/25 Hospital ELECTROLYTE A/G Ratio 1.1 0.7 - 1.6 01/25 [facility] ELECTROLYTE AST 156 0 - 37 01/25 [facility] ELECTROLYTE Globulin 4.0 2.7 - 4.2 01/25 [facility] ELECTROLYTE Albumin Lvl 4.3 3.5 - 5.0 01/25 Hospital ELECTROLYTE eGFR 64 01/25 Result Comment: The Hospital eGFR is calculated using the CKD-EPI formula. In most young, healthy individuals the eGFR will be >90 mL/min/1.73m2 . The eGFR declines with age. An eGFR of 60-89 may be normal in some populations, particularly the elderly, for whom the CKD-EPI formula has not been extensively validated. Use of the eGFR is not recommended in the following populations:< br/>
Shanique viduals with unstable creatinine concentration s, including patients and those with serious co-morbid conditions.<b r/>
Patie nts with extremes in muscle mass or diet.

The data above are obtained from the National Kidney Disease Education Program (NKDEP) which additionally recommends that when the eGFR is used in patients with extremes of body mass index for purposes of drug dosing, the eGFR should be multiplied by the estimated BMI. ENDOCRINOLO Prolactin 38.8 01/25 [facility] HEMATOLOGY PTT 27.3 22.9 - 01/25 [facility] 35.8 [facility] HEMATOLOGY PT 15.0 12.0 - 01/25 [facility] 14.7 [facility] HEMATOLOGY INR 1.16 0.85 - 01/25 Karen 1.17 [facility] HEMATOLOGY MCV 111.9 80.0 - 01/25 Karen 98.0 /2016 Hospital HEMATOLOGY Hct 40.3 36.0 - 01/25 Karen 48.0 /2016 Hospital HEMATOLOGY RBC 3.60 4.20 - 01/25 Karen 5.40 /2016 Hospital HEMATOLOGY WBC 10.9 3.7 - 10.4 01/25 [facility] HEMATOLOGY RDW 14.8 11.5 - 01/25 [facility] 14.5 [facility] HEMATOLOGY MCHC 33.1 32.0 - 01/25 Karen 36.0 /2016 Hospital HEMATOLOGY MPV 8.2 7.4 - 10.4 01/25 [facility] HEMATOLOGY Platelet 202 133 - 450 09 [facility] HEMATOLOGY Hgb 13.3 12.0 - 01/25 Karen 16.0 [facility] HEMATOLOGY MCH 37.0 27.0 - 01/25 Karen 31.0 [facility] HEMATOLOGY Lymphocytes 25.3 20.0 - 01/25 [facility] 40.0 [facility] HEMATOLOGY Segs 62.7 45.0 - 01/25 [facility] 75.0 [facility] HEMATOLOGY Monocytes 10.0 2.0 - 12.0 01/25 [facility] HEMATOLOGY Plt Morph Normal 01/25 Karen (01/24/17 8:36 PM) /2016 Hospital HEMATOLOGY Segs-Bands # 6.8 1.5 - 8.1 01/25 [facility] HEMATOLOGY Eosinophils 1.2 0.0 - 4.0 01/25 [facility] HEMATOLOGY Basophils 0.8 0.0 - 1.0 01/25 [facility] HEMATOLOGY Macrocyte 2+ None Seen 01/25 Karen *ABN* /2016 [facility] (01/24/17 8:36 PM) HEMATOLOGY Basophils # 0.1 0.0 - 0.2 01/25 [facility] HEMATOLOGY Eosinophils 0.1 0.0 - 0.5 01/25 Karen # /2016 Hospital HEMATOLOGY Monocytes # 1.1 0.0 - 0.8 01/25 [facility] HEMATOLOGY Lymphocytes 2.8 1.0 - 5.5 01/25 Karen # /2016 Hospital CHEM PANEL Magnesium 1.1 1.8 - 2.4 01/24 Karen Lvl /2017 Hospital CHEM PANEL eGFR 122 01/24 Result Comment: The Hospital eGFR is calculated using the CKD-EPI formula. In most young, healthy individuals the eGFR will be >90 mL/min/1.73m2 . The eGFR declines with age. An eGFR of 60-89 may be normal in some populations, particularly the elderly, for whom the CKD-EPI formula has not been extensively validated. Use of the eGFR is not recommended in the following populations:< br/>
Shanique viduals with unstable creatinine concentration s, including patients and those with serious co-morbid conditions.<b r/>
Patie nts with extremes in muscle mass or diet.

The data above are obtained from the National Kidney Disease Education Program (NKDEP) which additionally recommends that when the eGFR is used in patients with extremes of body mass index for purposes of drug dosing, the eGFR should be multiplied by the estimated BMI. CHEM PANEL AGAP 15.2 10.0 - 01/24 [facility] 20.0 [facility] CHEM PANEL CO2 22 24 - 32 01/24 Hospital CHEM PANEL Chloride Lvl 101 95 - 109 01/24 Hospital CHEM PANEL Potassium 3.2 3.5 - 5.1 01/24 [facility] CHEM PANEL BUN 3 7 - 22 01/24 Hospital CHEM PANEL Sodium Lvl 135 135 - 145 01/24 Hospital CHEM PANEL Creatinine 0.52 0.50 - 01/24 [facility] Lvl 1.40 [facility] CHEM PANEL Calcium Lvl 7.3 8.5 - 10.5 01/24 [facility] CHEM PANEL Glucose Lvl 88 70 - 99 01/24 [facility] CHEM PANEL Procalcitoni <0.05 0.00 - 01/24 Karen n Lvl ng/mL 0.10 [facility] URINE AND UA <=1.0 0.1 - 1.0 01/24 Karen STOOL Urobilinogen mg/dL [facility] URINE AND UA Bili Negative Negative 01/24 Karen STOOL *NA* /2016 Hospital (01/24/17 4:35 AM) URINE AND UA Ketones Trace Negative 01/24 [facility] Karen STOOL mg/dL mg/dL /2016 Hospital URINE AND UA Glucose Negative Negative 01/24 Karen STOOL mg/dL mg/dL Hospital URINE AND UA Protein Negative Negative 01/24 [facility] STOOL mg/dL mg/dL Hospital URINE AND UA pH 6.0 5.0 - 8.0 01/24 [facility] STOOL [facility] URINE AND UA Color Light Yellow Yellow 01/24 Karen STOOL *NA* /2016 Hospital (01/24/17 4:35 AM) URINE AND UA Spec Grav 1.013 <=1.030 01/24 [facility] STOOL [facility] URINE AND UA Turbidity Clear Clear 01/24 Karen STOOL (01/24/17 4:35 AM) /2016 Hospital URINE AND UA Mucus Few /LPF None Seen 01/24 Karen STOOL /LPF /2016 Hospital URINE AND UA RBC <1 0 - 2 01/24 Karen STOOL [facility] URINE AND UA WBC 3 0 - 5 01/24 [facility] STOOL [facility] URINE AND UA Sq Epi Few /LPF Few /LPF 01/24 [facility] STOOL [facility] URINE AND UA Leuk Est Negative Negative 01/24 Karen STOOL (01/24/17 4:35 AM) Hospital URINE AND UA Nitrite Negative Negative 01/24 Karen STOOL (01/24/17 4:35 AM) /2016 [facility] URINE AND UA Blood Large Negative 01/24 Karen STOOL *ABN* /2016 [facility] (01/24/17 4:35 AM) URINE AND UA <=1.0 0.1 - 1.0 01/24 Karen STOOL Urobilinogen mg/dL /2016 Hospital URINE AND UA RBC 71 0 - 2 01/24 Karen STOOL /2016 Hospital URINE AND UA WBC 89 0 - 5 01/24 Karen STOOL Hospital URINE AND UA Color Red Yellow 01/24 Karen STOOL *ABN* /2016 [facility] (01/23/17 9:27 PM) URINE AND UA Spec Grav 1.008 <=1.030 01/24 Karen STOOL Hospital URINE AND UA Turbidity Marked Clear 01/24 Karen STOOL *ABN* /2016 [facility] (01/23/17 9:27 PM) URINE AND UA Blood Large Negative 01/24 Karen STOOL *ABN* /2016 Hospital (01/23/17 9:27 PM) URINE AND UA Bili Negative Negative 01/24 Karen STOOL *NA* /2016 Hospital (01/23/17 9:27 PM) URINE AND UA Ketones Negative Negative 01/24 Karen STOOL mg/dL mg/dL /2016 Hospital URINE AND UA pH 6.0 5.0 - 8.0 01/24 [facility] STOOL [facility] URINE AND UA Glucose Negative Negative 01/24 Karen STOOL mg/dL mg/dL /2016 Hospital URINE AND UA Protein 30 mg/dL Negative 01/24 Karen STOOL mg/dL /2016 Hospital URINE AND UA Mucus Few /LPF None Seen 01/24 Karen STOOL /LPF /2016 Hospital URINE AND UA Bacteria Occasional None Seen 01/24 Karen STOOL /HPF /HPF /2016 Hospital URINE AND UA Nitrite Negative Negative 01/24 Karen STOOL (01/23/17 9:27 PM) Hospital URINE AND UA Sq Epi Many /LPF Few /LPF 01/24 [facility] STOOL [facility] URINE AND UA Leuk Est Negative Negative 01/24 Karen STOOL (01/23/17 9:27 PM) /2016 Hospital CARDIAC CK MB <0.5 0.5 - 3.6 01/24 [facility] CARDIAC Troponin-I <0.02 0.00 - 01/[facility] CARDIAC Total CK 162 12 - 191 01/24 [facility] CARDIAC CK MB Index <0.3 0.0 - 2.5 01/24 [facility] CHEM PANEL Lipase Lvl 256 73 - 393 01/24 [facility] CHEM PANEL A/G Ratio 1.1 0.7 - 1.6 01/24 [facility] CHEM PANEL B/C Ratio 8 6 - 25 01/24 [facility] CHEM PANEL Globulin 4.4 2.7 - 4.2 01/24 [facility] CHEM PANEL Bili Total 0.4 0.2 - 1.3 01/24 [facility] CHEM PANEL ALT 30 0 - 65 01/24 [facility] CHEM PANEL AST 194 0 - 37 01/24 [facility] CHEM PANEL Alk Phos 117 39 - 136 01/24 [facility] CHEM PANEL Total 9.1 6.4 - 8.4 01/24 Karen Protein [facility] CHEM PANEL Albumin Lvl 4.7 3.5 - 5.0 01/24 Karen [facility] ENDOCRINOLO S Preg Negative Negative 01/24 Karen GY *NA* /2016 [facility] (01/23/17 9:00 PM) HEMATOLOGY MPV 7.9 7.4 - 10.4 01/24 Karen [facility] HEMATOLOGY Hgb 14.4 12.0 - 01/24 Karen 16.0 [facility] HEMATOLOGY RBC 3.82 4.20 - 01/24 Karen 5.40 [facility] HEMATOLOGY MCV 108.6 80.0 - 01/24 Karen 98.0 [facility] HEMATOLOGY Hct 41.4 36.0 - 01/24 Karen 48.0 [facility] HEMATOLOGY MCHC 34.8 32.0 - 01/24 Karen 36.0 [facility] HEMATOLOGY MCH 37.8 27.0 - 01/24 Karen 31.0 [facility] HEMATOLOGY Platelet 227 133 - 450 01/24 Karen [facility] HEMATOLOGY RDW 14.8 11.5 - 01/24 Karen 14.5 [facility] HEMATOLOGY WBC 6.6 3.7 - 10.4 01/24 Karen [facility] HEMATOLOGY Monocytes # 0.6 0.0 - 0.8 01/24 Karen [facility] HEMATOLOGY Segs-Bands # 4.0 1.5 - 8.1 01/24 Karen [facility] HEMATOLOGY Basophils 1.0 0.0 - 1.0 01/24 Karen [facility] HEMATOLOGY Lymphocytes 2.0 1.0 - 5.5 01/24 Karen # /2016 Hospital HEMATOLOGY Eosinophils 0.4 0.0 - 4.0 01/24 Karen [facility] HEMATOLOGY Basophils # 0.1 0.0 - 0.2 01/24 Karen [facility] HEMATOLOGY Macrocyte 2+ None Seen 01/24 Karen *ABN* /2016 [facility] (01/23/17 9:00 PM) HEMATOLOGY Monocytes 8.6 2.0 - 12.0 01/24 Karen [facility] HEMATOLOGY Lymphocytes 29.8 20.0 - 01/24 Karen 40.0 [facility] HEMATOLOGY Segs 60.2 45.0 - 09 Karen 75.0 /2017 Hospital CHEM PANEL Lipase Lvl 199 73 - 393 12/17 Hospital CHEM PANEL eGFR 105 12/17 [facility] Comment: The Hospital eGFR is calculated using the CKD-EPI formula. In most young, healthy individuals the eGFR will be >90 mL/min/1.73m2 . The eGFR declines with age. An eGFR of 60-89 may be normal in some populations, particularly the elderly, for whom the CKD-EPI formula has not been extensively validated. Use of the eGFR is not recommended in the following populations:< br/>
Shanique viduals with unstable creatinine concentration s, including patients and those with serious co-morbid conditions.<b r/>
Patie nts with extremes in muscle mass or diet.

The data above are obtained from the National Kidney Disease Education Program (NKDEP) which additionally recommends that when the eGFR is used in patients with extremes of body mass index for purposes of drug dosing, the eGFR should be multiplied by the estimated BMI. CHEM PANEL Bili Total 0.4 0.2 - 1.3 12/17 Hospital CHEM PANEL Alk Phos 128 39 - 136 12/17 Hospital CHEM PANEL Sodium Lvl 142 135 - 145 12/17 Hospital CHEM PANEL Potassium 4.0 3.5 - 5.1 12/17 [facility] CHEM PANEL AST 249 0 - 37 12/17 Hospital CHEM PANEL ALT 34 0 - 65 12/17 Hospital CHEM PANEL Albumin Lvl 4.3 3.5 - 5.0 12/17 Hospital CHEM PANEL Total 8.9 6.4 - 8.4 12/17 Hospital CHEM PANEL Creatinine 0.73 0.50 - 08 Karen Lvl 1.40 [facility] CHEM PANEL BUN 5 7 - 22 12/17 Hospital CHEM PANEL Glucose Lvl 96 70 - 99 12/17 Hospital CHEM PANEL CO2 26 24 - 32 12/17 Hospital CHEM PANEL Chloride Lvl 103 95 - 109 12/17 Hospital CHEM PANEL Calcium Lvl 9.3 8.5 - 10.5 12/17 Karen [facility] CHEM PANEL B/C Ratio 7 6 - 25 12/17 Karen [facility] CHEM PANEL AGAP 17.0 10.0 - 12/17 Karen 20.0 [facility] CHEM PANEL A/G Ratio 0.9 0.7 - 1.6 12/17 Karen [facility] CHEM PANEL Globulin 4.6 2.7 - 4.2 12/17 Karen [facility] ENDOCRINOLO S Preg Negative Negative 12/17 Karen GY *NA* /2016 [facility] (12/16/16 8:08 PM) HEMATOLOGY MCV 108.1 80.0 - 12/17 Karen 98.0 [facility] HEMATOLOGY Hct 40.7 36.0 - 12/17 Karen 48.0 [facility] HEMATOLOGY MCH 37.9 27.0 - 12/17 Karen 31.0 [facility] HEMATOLOGY Platelet 185 133 - 450 12/17 Karen [facility] HEMATOLOGY MCHC 35.0 32.0 - 12/17 Karen 36.0 [facility] HEMATOLOGY MPV 7.4 7.4 - 10.4 12/17 Karen [facility] HEMATOLOGY RDW 15.0 11.5 - 12/17 Karen 14.5 [facility] HEMATOLOGY WBC 7.0 3.7 - 10.4 12/17 Karen [facility] HEMATOLOGY Hgb 14.3 12.0 - 12/17 Karen 16.0 [facility] HEMATOLOGY RBC 3.76 4.20 - 12/17 Karen 5.40 /2016 [facility] HEMATOLOGY Segs-Bands # 4.9 1.5 - 8.1 12/17 Karen [facility] HEMATOLOGY Basophils 0.8 0.0 - 1.0 12/17 [facility] HEMATOLOGY Eosinophils 0.3 0.0 - 4.0 12/17 Karen [facility] HEMATOLOGY Monocytes 9.3 2.0 - 12.0 12/17 Karen [facility] HEMATOLOGY Lymphocytes 1.4 1.0 - 5.5 12/17 Karen # /2016 [facility] HEMATOLOGY Segs 69.6 45.0 - 12/17 Karen 75.0 [facility] HEMATOLOGY Macrocyte 2+ None Seen 12/17 Karen *ABN* /2016 [facility] (12/16/16 8:08 PM) HEMATOLOGY Monocytes # 0.7 0.0 - 0.8 12/17 Karen [facility] HEMATOLOGY Basophils # 0.1 0.0 - 0.2 12/17 Karen [facility] HEMATOLOGY Lymphocytes 20.0 20.0 - 12/17 Karen 40.0 [facility] CARDIAC Total CK 121 12 - 191 12/17 [facility] DRUG SCREEN U Cocaine Negative Negative 12/17 Karen Scr *NA* Hospital (12/16/16 8:05 PM) DRUG SCREEN U Phencyc Negative Negative 12/17 Karen Scr *NA* Hospital (12/16/16 8:05 PM) DRUG SCREEN UDS Note See Note 12/17 Karen (12/16/16 8:05 PM) Hospital DRUG SCREEN U Opiate Scr Positive Negative 12/17 Karen *ABN* [facility] (12/16/16 8:05 PM) DRUG SCREEN U Cannab Scr Negative Negative 12/17 Karen *NA* [facility] (12/16/16 8:05 PM) DRUG SCREEN U Benzodia Negative Negative 12/17 Karen Scr *NA* /2016 Hospital (12/16/16 8:05 PM) DRUG SCREEN U Gema Scr Negative Negative 12/17 Karen *NA* [facility] (12/16/16 8:05 PM) DRUG SCREEN U Amph Scr Negative Negative 12/17 Karen *NA* [facility] (12/16/16 8:05 PM) URINE AND UA Bacteria Occasional None Seen 12/17 Karen STOOL /HPF /HPF /2016 Hospital URINE AND UA RBC 3-5 /HPF 0 - 2 12/17 Karen STOOL /2016 Hospital URINE AND UA Blood Small Negative 12/17 Karen STOOL *ABN* Hospital (12/16/16 8:05 PM) URINE AND UA 0.2 0.1 - 1.0 12/17 Karen STOOL Urobilinogen /2016 [facility] URINE AND UA Nitrite Negative Negative 12/17 Karen STOOL (12/16/16 8:05 PM) /2016 Hospital URINE AND UA Sq Epi Few /LPF Few /LPF 12/17 Karen STOOL Hospital URINE AND UA WBC 0-2 /HPF 0 - 5 12/17 Karen STOOL Hospital URINE AND UA Leuk Est Negative Negative 12/17 Karen STOOL (12/16/16 8:05 PM) /2016 Hospital URINE AND UA Ketones Negative Negative 12/17 Karen STOOL *NA* /2016 [facility] (12/16/16 8:05 PM) URINE AND UA Bili Negative Negative 12/17 Karen STOOL *NA* /2016 [facility] (12/16/16 8:05 PM) URINE AND UA pH 6.0 5.0 - 8.0 12/17 Karen STOOL /2016 Hospital URINE AND UA Spec Grav <=1.005 <=1.030 12/17 Karen STOOL *NA* /2016 [facility] (12/16/16 8:05 PM) URINE AND UA Turbidity Clear Clear 12/17 Karen STOOL (12/16/16 8:05 PM) [facility] URINE AND UA Color Yellow Yellow 12/17 Karen STOOL *NA* [facility] (12/16/16 8:05 PM) URINE AND UA Protein Negative Negative 12/17 Karen STOOL (12/16/16 8:05 PM) [facility] URINE AND UA Glucose Negative Negative 12/17 Karen STOOL (12/16/16 8:05 PM) [facility] CARDIAC Total CK 102 12 - 191 12/04 [facility] CHEM PANEL Phosphorus 3.2 2.5 - 4.5 12/04 Hospital CHEM PANEL Magnesium 2.1 1.8 - 2.4 12/04y Lvl Hospital CHEM PANEL eGFR 117 12/04 Result Comment: The Hospital eGFR is calculated using the CKD-EPI formula. In most young, healthy individuals the eGFR will be >90 mL/min/1.73m2 . The eGFR declines with age. An eGFR of 60-89 may be normal in some populations, particularly the elderly, for whom the CKD-EPI formula has not been extensively validated. Use of the eGFR is not recommended in the following populations:< br/>
Shanique viduals with unstable creatinine concentration s, including patients and those with serious co-morbid conditions.<b r/>
Patie nts with extremes in muscle mass or diet.

The data above are obtained from the National Kidney Disease Education Program (NKDEP) which additionally recommends that when the eGFR is used in patients with extremes of body mass index for purposes of drug dosing, the eGFR should be multiplied by the estimated BMI. CHEM PANEL Glucose Lvl 89 70 - 99 12/04 Hospital CHEM PANEL Sodium Lvl 140 135 - 145 12/04 Hospital CHEM PANEL Potassium 4.4 3.5 - 5.1 12/04 Karen Lvl [facility] CHEM PANEL CO2 27 24 - 32 12/04 Hospital CHEM PANEL Total 8.9 6.4 - 8.4 12/04 Protein [facility] CHEM PANEL Calcium Lvl 9.5 8.5 - 10.5 12/04 Hospital CHEM PANEL Creatinine 0.59 0.50 - 12/04 Karen Lvl 1.40 [facility] CHEM PANEL BUN 6 7 - 22 12/04 Hospital CHEM PANEL ALT 59 0 - 65 12/04 Hospital CHEM PANEL Albumin Lvl 4.9 3.5 - 5.0 12/04 Hospital CHEM PANEL AST 374 0 - 37 12/04 Hospital CHEM PANEL Chloride Lvl 102 95 - 109 12/04 Hospital CHEM PANEL Alk Phos 110 39 - 136 12/04 Hospital CHEM PANEL Bili Total 0.5 0.2 - 1.3 12/04 Hospital CHEM PANEL Globulin 4.0 2.7 - 4.2 12/04 Hospital CHEM PANEL B/C Ratio 10 6 - 25 12/04 Hospital CHEM PANEL AGAP 15.4 10.0 - 12/04 Karen 20.0 [facility] CHEM PANEL A/G Ratio 1.2 0.7 - 1.6 12/04 Hospital HEMATOLOGY Eosinophils 1.1 0.0 - 4.0 12/04 Hospital HEMATOLOGY Monocytes 8.7 2.0 - 12.0 12/04 Hospital HEMATOLOGY Basophils 1.3 0.0 - 1.0 12/04 Hospital HEMATOLOGY Lymphocytes 23.7 20.0 - 12/04 Karen 40.0 [facility] HEMATOLOGY Segs 65.2 45.0 - 12/04 Karen 75.0 [facility] HEMATOLOGY Plt Morph Normal 12/04 Karen (12/04/16 12:09 PM) /2016 [facility] HEMATOLOGY Monocytes # 0.6 0.0 - 0.8 12/04 Karen /2016 [facility] HEMATOLOGY Eosinophils 0.1 0.0 - 0.5 12/04 Karen # /2016 [facility] HEMATOLOGY Lymphocytes 1.7 1.0 - 5.5 12/04 Karen # /2016 [facility] HEMATOLOGY Segs-Bands # 4.6 1.5 - 8.1 12/04 Karen /2016 [facility] HEMATOLOGY Macrocyte 2+ None Seen 12/04 Karen *ABN* /2016 [facility] (12/04/16 12:09 PM) HEMATOLOGY Basophils # 0.1 0.0 - 0.2 12/04 Karen /2016 [facility] HEMATOLOGY MPV 7.7 7.4 - 10.4 12/04 Karen /2016 [facility] HEMATOLOGY MCHC 34.6 32.0 - 12/04 Karen 36.0 [facility] HEMATOLOGY MCH 37.9 27.0 - 12/04 Karen 31.0 [facility] HEMATOLOGY Platelet 255 133 - 450 12/04 Karen /2016 [facility] HEMATOLOGY RDW 14.6 11.5 - 12/04 Karen 14.5 /2016 [facility] HEMATOLOGY RBC 3.76 4.20 - 12/04 Karen 5.40 /2016 [facility] HEMATOLOGY MCV 109.6 80.0 - 12/04 Karen 98.0 [facility] HEMATOLOGY Hgb 14.2 12.0 - 12/04 Karen 16.0 [facility] HEMATOLOGY WBC 7.1 3.7 - 10.4 12/04 Karen [facility] HEMATOLOGY Hct 41.2 36.0 - 12/04 Karen 48.0 Hospital URINE AND UA Glucose Negative Negative 12/04 Karen STOOL (12/04/16 12:09 PM) /2016 Hospital URINE AND UA Ketones Negative Negative 12/04 Karen STOOL *NA* /2016 Hospital (12/04/16 12:09 PM) URINE AND UA pH 5.5 5.0 - 8.0 12/04 Karen STOOL /2016 Hospital URINE AND UA Protein Negative Negative 12/04 Karen STOOL (12/04/16 12:09 PM) /2016 Hospital URINE AND UA Nitrite Negative Negative 12/04 Karen STOOL (12/04/16 12:09 PM) /2016 Hospital URINE AND UA Leuk Est Negative Negative 12/04 Karen STOOL (12/04/16 12:09 PM) Hospital URINE AND UA 0.2 0.1 - 1.0 12/04 Karen STOOL Urobilinogen /2016 [facility] URINE AND UA Spec Grav <=1.005 <=1.030 12/04 [facility] *NA* /2016 Hospital (12/04/16 12:09 PM) URINE AND UA Blood Negative Negative 12/04 Karen STOOL (12/04/16 12:09 PM) [facility] URINE AND UA Bili Negative Negative 12/04 Karen STOOL *NA* /2016 [facility] (12/04/16 12:09 PM) URINE AND UA Turbidity Clear Clear 12/04 [facility] STOOL (12/04/16 12:09 PM) [facility] URINE AND UA Color Yellow Yellow 12/04 [facility] STOOL *NA* /2016 [facility] (12/04/16 12:09 PM) URINE AND UA Bacteria Occasional None Seen 12/04 Karen STOOL /HPF /HPF /2016 [facility] URINE AND UA Mucus Few /LPF None Seen 12/04 Karen STOOL /LPF /2016 Hospital URINE AND UA RBC 0-2 /HPF 0 - 2 12/04 Karen STOOL /2016 Hospital URINE AND UA WBC 0-2 /HPF None Seen 12/04 Karen STOOL /HPF /2016 Hospital URINE AND UA Sq Epi Few /LPF Few /LPF 12/04 [facility] Pathology Reports No Data Provided for This Section Diagnostic Reports Report Value Date Source Abdomen RUQ US Study: Ultrasound of right upper quadrant 11/07/2017 [facility] History: Abnormal LFTs. Comments: Liver: Diffuse increased liver echogenicity suggesting steatosis. Enlarged liver measuring 20 cm in sagittal dimension. No focal liver mass. No intrahepatic or extrahepatic bile duct dilatation. CBD measures 2 mm. Pancreas is not well visualized due to overlying bowel gas. Gallbladder: No gallstones in the gallbladder. Sludge seen in the gallbladder. No gallbladder wall thickening. Sonographic Melton sign is negative. No pericholecystic fluid. Right kidney: No hydronephrosis or nephrolithiasis. Kidney measures 10.7 cm in sagittal dimension. Impression: Hepatomegaly with steatosis. No cholelithiasis or acute cholecystitis. Gallbladder sludge present. Chest 1view DX EXAM: Chest x-ray one view (frontal) 11/04/2017 [facility] HISTORY: - Please assess for aspiration or pneumonia. COMPARISON:None available. FINDINGS: Mediastinum: The cardiomediastinal contours are unremarkable. Lungs and pleura: No focal consolidation, pleural effusion or pneumothorax. The pulmonary vascularity is normal. No acute osseous displaced abnormality is noted. Lower cervical fusion hardware changes are noted. IMPRESSION: No radiographic evidence of an acute cardiopulmonary process. SL: [facility] Brain wo contrast CT CT HEAD WITHOUT CONTRAST 11/04/2017 [facility] Clinical Indication: - Seizure with fall from standing and loss of consciousness/altered mental status. Comparison: CT 08/05/2017, CT head 01/24/2017 TECHNIQUE: CT images were obtained from the foramen magnum to the vertex without the use of intravenous contrast on a multidetector CT. CT imaging was performed with exposure control parameters to reduc e radiation dose. Coronal and sagittal reconstructions were obtained. CT radiation dose DLP: 1157.21 mGy-cm FINDINGS: There is no hemorrhage, extra-axial fluid collection, midline shift or hydrocephalus. A 8 mm extra-axial densely calcified right frontal convexity structure is redemonstrated, similar to study dated 01/24/2017. Without adjacent brain parenchymal edematous changes. The visualized paranasal sinuses are clear. The mastoid air cells are clear. The calvarium and skull base are intact. If clinical concern persists for acute pathology further evaluation with MRI brain can be obtained if warranted. IMPRESSION: 1. No acute intracranial abnormality. 2. Stable 8 mm right frontal convexity meningioma versus osteoma. SL: [facility] Spine cervical wo Clinical Indication: Seizure with fall from standing and loss of consciousness/altered mental status. 11/04/2017 [facility] contrast CT Comparison: Cervical spine radiographs performed on 10/19/2006. Technique: Multi-detector CT imaging of the cervical spine is performed. Coronal and sagittal reconstructions were obtained. CT Radiation Dose DLP 403.6 mGy-cm FINDINGS: ALIGNMENT AND GENERAL ASSESSMENT: There are chronic postsurgical changes at C5, C6 and C7 from anterior cervical discectomy and fusion. No acute fracture or malalignment of the cervical spine is seen. N o atlantooccipital or atlantoaxial dissociation is identified. There is straightening of the cervical lordosis, which may be due to positioning or muscle spasm. DISK SPACES AND SOFT TISSUES: There is no prevertebral soft tissue swelling. C2-C3 to C7-T1 disc space levels show no definite disc protrusions on CT. MRI is the gold standard to assess for disk disease. VISUALIZED LUNG APICES: Unremarkable. CT myelogram or MRI of the cervical spine may be performed, if there is further concern. IMPRESSION: Chronic fusion hardware at C5, C6 and C7. No acute fracture or malalignment of the cervical spine. SL: KPATEL-M Pelvis w Transvag EXAM: US PELVIS TRANSABDOMINAL 08/22/2017 [facility] and Pelvis Doppler EXAM: US PELVIS TRANSVAGINAL US DATE: 08/22/2017 9:14 PM CDT INDICATION: Vaginal bleeding. COMPARISON: 05/18/2010. TECHNIQUE: Multiplanar grayscale and color Doppler ultrasound of the pelvis were obtained transabdominally. Transvaginal imaging was subsequently performed for better evaluation of the endometrium and adnexal regions. FINDINGS: The uterus is anteverted in position and measures 6.1 x 2.5 x 3.8 cm. The uterine myometrium is normal in echotexture. The bladder is grossly unremarkable. The endometrial stripe is normal in appearance and measures 2 mm in thickness. The right and left ovaries are normal in appearance. No adnexal masses were identified. Doppler evaluation of the ovaries demonstrate normal vascularity. The right ovary measures 2.1 x 2.2 x 2.3 cm. The left ovary measures 2.0 x 1.1 x 1.8 cm. No significant free fluid is noted in the pelvic cul-de-sac. IMPRESSION: Unremarkable pelvic ultrasound. SL: WR2-M Tibia fibula series Exam: Right Tibia fibula series DX 08/22/2017 [facility] DX Clinical Indication: Fell out of shower. Generalized pain in right tibia. Comparison: None. FINDINGS: The AP and lateral views of the tibia and fibula show normal alignment without fractures or dislocations. The visualized adjacent knee and ankle regions are unremarkable. There is no soft tissue swelling or radiopaque foreign bodies. If there is further concern, recommend follow-up radiographs or bone scan for complete assessment. IMPRESSION: 1. No fractures or dislocations of the right tibia and fibula. SL: [id number] Forearm 2 views DX Exam: Right Forearm 2 views DX 08/22/2017 [facility] Clinical Indication: Fell out of shower. Generalized pain in right forearm. Comparison: None. FINDINGS: The AP and lateral views of the forearm show normal alignment without fractures or dislocations. The visualized wrist and elbow joints are unremarkable. There is no soft tissue swelling or radiopaque foreign bodies. If there is further concern, recommend follow-up radiographs or bone scan for complete assessment. IMPRESSION: 1. No fractures or dislocation of the right forearm. SL: [id number] Brain wo contrast CT CT BRAIN WITHOUT CONTRAST 08/05/2017 [facility] INDICATION: Severe headache, CT dose DLP 1250 COMPARISON: CT brain 06/19/2017 DISCUSSION: There is a stable osteoma or densely calcified meningioma of the right frontal convexity, measuring approximately 5 x 8 mm, without associated mass effect or vasogenic edema. There is no evidence of acu te vascular insults, intra-axial space occupying lesions, hemorrhage, hydrocephalus, midline shift, or extra-axial fluid collections. The calvarium is intact. IMPRESSION: No acute intracranial abnormalities are visualized. SL:[address] wo [address]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
--- OUTSIDE RECORDS SUMMARY | 2018-11-28 10:59 | XMS REPORT | Encounter Summary ---
:1980 Author Reason for Visit Medical Complaint Instructions 1. Chalazion of lower eyelid erythromycin 5 mg/gram (0.5 %) eye ointment Bactrim DS 800 mg-160 mg tablet Discussion Note: None recorded.Patient educational handouts: No information available. Plan of Care Patient Instructions Please wash hands frequently, clean washcloths and pillowcases. Warm compresses on eyes. [facility] seek [facility] symptoms do not resolve in 1 week. Reminders Provider Appointments None recorded. Lab None recorded. Referral None recorded. Procedures None recorded. Surgeries None recorded. Imaging None recorded. Medications Name Start Date Bactrim DS 800 mg-160 mg tablet Take 1 tablet twice a day by oral route with meals for 5 days. erythromycin 5 mg/gram (0.5 %) eye ointment APPLY 1 CM RIBBON INTO THE LOWER CONJUNCTIVAL SAC(S) IN THE AFFECTED EYE(S) BY OPHTHALMIC ROUTE 3 TIMES PER DAY Medications Administered None recorded. Vitals Height Weight BMI Blood Pressure 4 ft 11 in 130 lbs 26.3 110/72 Lab Results None recorded. Allergies Name Reaction Severity Onset NKDA Problems No Known Problems Procedures None recorded. Vaccine List Vaccine Type influenza, injectable, quadrivalent 02/16/2016 Tdap 05/18/2013 Social History Smoking Status Never Smoker Past Encounters 08/17/2016 Chalazion of Lower Eyelid Sowmya Rodrigez [facility]: [address] [place] [address], Ph. [phone] History of Present Illness Eye Complaint Reported By: Patient HPI: Location: left; left lower eye lid swelling and redness. Quality: aching, itching. Severity: severe. Duration actual date 3 day ago. Onset/Timindays. Context no previous history of Iritis, no previous history of recurrent corneal erosion, no one else with similar symptoms. Associated Symptoms: vision intact, no foreign body sensation in eyes, no pain with eye movement, no discharge from eyes, no headache, no fever/chills, no muscle aches, photophobia, pain in the eyes Review of Systems Basic Reported By: Patient Constitutional: Constitutional: no fever Eyes: Eyes: irritation Arpc-Amia-Victg-Throat: Ears: no ear complaints. Nose: no nose/sinus problems. Mouth/Throat: no sore throat Cardiovascular: Cardiovascular: no chest pain Respiratory: Respiratory: no cough Gastrointestinal: Gastrointestinal: no abdominal pain Genitourinary: Genitourinary: no urinary complaints Musculoskeletal: Musculoskeletal: no muscle aches Skin: Skin: no rashes Neurologic: Neurologic: no headaches Physical Exam Adult Basic, Adult Female Complete Reported By: Patient Constitutional: General Appearance: healthy-appearing, well-nourished, well-developed. Level of Distress: NAD. Ambulation: ambulating normally Psychiatric: Mental Status: active and alert. Orientation: to time, to place, to person Eyes: Lids and Conjunctivae: discharge; left lower eyelid edema, erythema with about 5 mm internal papule with pus drainage. Pupils: PERRLA. Corneas: grossly intact. EOM: EOMI. Lens: clear. Sclerae: non-icteric. Vision: acuity grossly intact, Distance acuity, Both eyes, uncorrected: 20/20, distance acuity: left, uncorrected: 20/20 Iev-Xteu-Whksy-Throat: Ears: no lesions on external ear, no outer ear tenderness, EACs clear, TMs clear. Hearing: no hearing loss. Nose: nasal passages clear, no nasal discharge. Lips, Teeth, and Gums: no mouth or lip ulcers, no bleeding gums, normal dentition. Oropharynx: moist mucous membranes, no erythema, no exudates, tonsils not enlarged Neck: Neck: supple, trachea midline, no masses, FROM. Lymph Nodes: no cervical LAD Lungs: Respiratory effort: no dyspnea. Auscultation: breath sounds normal Cardiovascular: Heart Auscultation: RRR, no murmurs
--- OUTSIDE RECORDS SUMMARY | 2018-11-28 10:59 | XMS REPORT | Summary of Care ---
:1980 Author Organization [facility] Address [address] [place] [address]- Encounter HQ Freddier_maxine(FIN) [id number] Date(s): 10/22/16 - 10/22/16 [facility] [address] [place] [address]- Discharge Diagnosis: Hand pain Discharge Diagnosis: Contusion of hand Discharge Disposition: Home or Self Care Attending Physician: Cara Constantino MD Vital Signs Most recent to oldest [Reference Range]: 1 2 Height 149.86 cm (10/22/16 11:58 AM) Temperature Oral [96.4-99.1 DegF] 98.0 DegF 98.3 DegF (10/22/16 2:23 PM) (10/22/16 11:58 AM) Blood Pressure [90-140/60-90 mmHg] 130/80 mmHg 132/93 mmHg (10/22/16 2:23 PM) (10/22/16 11:58 AM) Respiratory Rate [14-20 BRMIN] 16 BRMIN 18 BRMIN (10/22/16 2:23 PM) (10/22/16 11:58 AM) Peripheral Pulse Rate [60-100 bpm] 76 bpm 94 bpm (10/22/16 2:23 PM) (10/22/16 11:58 AM) Weight 59.091 kg (10/22/16 11:58 AM) Body Mass Index 26.31 m2 (10/22/16 11:58 AM) Problem List No data available for this section Allergies, Adverse Reactions, Alerts Substance Reaction Severity Status NKDA Active Medications BD Normal Saline Flush 10 mL, Route: IV, Drug Form: INJ, PRN, PRN Line Flush, Start date: 10/22/16 13: 00:00 CDT, Duration: 30 day, Stop date: 11/21/16 12:59:00 CDT Notes: (Same as: BD Posiflush) Start Date: 10/22/16 Stop Date: 10/22/16 Status: Discontinuedibuprofen 800 mg, 1 tab, Route: PO, Drug form: TAB, ONCE, Dosing Weight 59.091, kg, Priority: STAT, Start date: 10/22/16 12:17:00 CDT, Stop date: 10/22/16 12:17:00 CDT Notes: (Same as: Motrin)Take with food. Start Date: 10/22/16 Stop Date: 10/22/16 Status: Completedibuprofen 800 mg oral tablet 800 mg, PO, TID, PRN Pain, Take with food, X 3 day, # 10 tab, 0 Refill(s) Start Date: 10/22/16 Stop Date: 10/25/16 Status: OrderedPepcid 20 mg oral tablet 20 mg, 1 tab, Route: PO, Drug form: TAB, ONCE, Dosing Weight 59.091, kg, Start date: 10/22/16 12:17:00 CDT, Stop date: 10/22/16 12:17:00 CDT Notes: (Same as: Pepcid) Start Date: 10/22/16 Stop Date: 10/22/16 Status: CompletedPepcid 20 mg oral tablet 20 mg=1 tab, PO, BID, # 14 tab, 0 Refill(s) Start Date: 10/22/16 Status: OrderedSodium Chloride 0.9% IV 25 mL, Route: IV, Start date: 10/22/16 13:00:00 CDT, Duration: 30 day, Stop date : 11/21/16 12:59:00 CDT, PRN Line Flush Start Date: 10/22/16 Stop Date: 10/22/16 Status: Discontinued Results No data available for this section Immunizations No data available for this section Procedures No data available for this section Social History Social History Type Response Smoking Status Current some day smoker; Exposure to Tobacco Smoke None; Cigarette Smoking Last 365 Days Yes; Reg Smoking Cessation Counseling No Assessment and Plan No data available for this section
--- OUTSIDE RECORDS SUMMARY | 2018-11-28 11:00 | XMS REPORT | Summary of Care ---
:1980 Author Organization [facility] Address [address] [place] [address]- Encounter HQ Christian_maxine(FIN) [id number] Date(s): 12/16/16 - 12/17/16 [facility] [address] [place] [address]- [phone] Discharge Diagnosis: Bilateral lower extremity pain Discharge Diagnosis: Elevated SGOT (AST) Discharge Disposition: Home or Self Care Attending Physician: Rosalva Camarillo MD Vital Signs Most recent to oldest 1 2 3 [Reference Range]: Temperature Oral [96.4-99.1 98.5 DegF DegF] (12/16/16 6:39 PM) Blood Pressure [90-140/60-90 111/74 mmHg 140/102 mmHg 140/105 mmHg mmHg] (12/17/16 12:44 AM) (12/16/16 11:00 PM) (12/16/16 10:12 PM) Respiratory Rate [14-20 18 BRMIN 18 BRMIN 18 BRMIN BRMIN] (12/17/16 12:44 AM) (12/16/16 11:00 PM) (12/16/16 10:12 PM) Peripheral Pulse Rate [60-100 88 bpm 88 bpm 88 bpm bpm] (12/17/16 12:44 AM) (12/16/16 11:00 PM) (12/16/16 10:12 PM) Problem List No data available for this section Allergies, Adverse Reactions, Alerts Substance Reaction Severity Status NKDA Active Medications ketOROLAC 30 mg, Route: IVP, Drug form: INJ, ONCE, Dosing Weight 59.091, kg, Priority: STAT, Start date: 12/16/16 22:03:00 CDT, Stop date: 12/16/16 22:03:00 CDT Start Date: 12/16/16 Stop Date: 12/16/16 Status: Completedmorphine Sulfate 4 mg, 1 mL, Route: IVP, Drug form: INJ, ONCE, Dosing Weight 59.091, kg, Priority : STAT, Start date: 12/16/16 18:50:00 CDT, Stop date: 12/16/16 18:50:00 CDT Notes: (Same as:MORPhine Sulfate) Start Date: 12/16/16 Stop Date: 12/16/16 Status: Completedondansetron 4 mg, 2 mL, Route: IVP, Drug form: INJ, ONCE, Dosing Weight 59.091, kg, Priority : STAT, Start date: 12/16/16 18:50:00 CDT, Stop date: 12/16/16 18:50:00 CDT Notes: (Same as: Gerardo) MEDICATION WASTE Product Size: 4 mgProduct Wasted: 0mg Start Date: 12/16/16 Stop Date: 12/16/16 Status: CompletedSaline Flush 0.9% 5 mL, Route: IVP, Drug Form: INJ, Dosing Weight 59.091, kg, PRN, PRN Line Flush , Start date: 12/16/16 18:50:00 CDT, Duration: 24 hr, Stop date: 12/17/16 18:49: 00 CDT Notes: (Same as: BD Posiflush) Start Date: 12/16/16 Stop Date: 12/17/16 Status: DiscontinuedSodium Chloride 0.9% (Bolus) IV 1,000 mL, 2,000 ml/hr, Infuse Over: 30 minutes, Route: IV, 1,000, Drug form: INJ , ONCE, Priority: STAT, Dosing Weight 59.091 kg, Start date: 12/16/16 18:50:00 CDT, Duration: 1 doses or times, Stop date: 12/16/16 18:50:00 CDT Start Date: 12/16/16 Stop Date: 12/16/16 Status: CompletedSodium Chloride 0.9% IV 25 mL, Route: IV, Start date: 12/16/16 22:32:00 CDT, Duration: 30 day, Stop date : 01/15/17 22:31:00 CDT, PRN Line Flush Start Date: 12/16/16 Stop Date: 12/17/16 Status: Discontinuedtramadol 50 mg oral tablet 50 mg=1 tab, PO, Q6H, PRN Pain, X 5 day, # 20 tab, 0 Refill(s) Start Date: 12/17/16 Stop Date: 12/22/16 Status: OrderedZofran 4 mg, Route: IVP, Drug form: INJ, ONCE, Dosing Weight 59.091, kg, Priority: STAT , Start date: 12/16/16 22:04:00 CDT, Stop date: 12/16/16 22:04:00 CDT Start Date: 12/16/16 Stop Date: 12/16/16 Status: Completed Results ELECTROLYTES Most recent to oldest [Reference Range]: 1 Sodium Lvl [135-145 mEq/L] 142 mEq/L (12/16/16 8:08 PM) Potassium Lvl [3.5-5.1 mEq/L] 4.0 mEq/L (12/16/16 8:08 PM) Chloride Lvl [95-109 mEq/L] 103 mEq/L (12/16/16 8:08 PM) CO2 [24-32 mEq/L] 26 mEq/L (12/16/16 8:08 PM) AGAP [10.0-20.0 mEq/L] 17.0 mEq/L (12/16/16 8:08 PM) CHEM PANEL Most recent to oldest [Reference Range]: 1 Creatinine Lvl [0.50-1.40 mg/dL] 0.73 mg/dL (12/16/16 8:08 PM) eGFR 105 mL/min/1.73m2 1 *NA* (12/16/16 8:08 PM) BUN [7-22 mg/dL] 5 mg/dL *LOW* (12/16/16 8:08 PM) B/C Ratio [6-25] 7 (12/16/16 8:08 PM) Glucose Lvl [70-99 mg/dL] 96 mg/dL (12/16/16 8:08 PM) Total Protein [6.4-8.4 g/dL] 8.9 g/dL *HI* (12/16/16 8:08 PM) Albumin Lvl [3.5-5.0 g/dL] 4.3 g/dL (12/16/16 8:08 PM) Globulin [2.7-4.2 g/dL] 4.6 g/dL *HI* (12/16/16 8:08 PM) A/G Ratio [0.7-1.6] 0.9 (12/16/16 8:08 PM) Calcium Lvl [8.5-10.5 mg/dL] 9.3 mg/dL (12/16/16 8:08 PM) ALT [0-65 unit/L] 34 unit/L (12/16/16 8:08 PM) AST [0-37 unit/L] 249 unit/L *HI* (12/16/16 8:08 PM) Alk Phos [39-136 unit/L] 128 unit/L (12/16/16 8:08 PM) Bili Total [0.2-1.3 mg/dL] 0.4 mg/dL (12/16/16 8:08 PM) Lipase Lvl [73-393 unit/L] 199 unit/L (12/16/16 8:08 PM) 1Result Comment: The eGFR is calculated using the CKD-EPI formula. In most young , healthy individualsthe eGFR will be >90 mL/min/1.73m2. The eGFR declines with age. An eGFR of 60-89 may be normal in some populations, particularly the elderly, for whom the CKD-EPI formula has not been extensively validated. Use of the eGFR is not recommended in the following populations: Individuals with unstable creatinine concentrations, including patients and those with serious co-morbid conditions. Patients with extremes in muscle mass or diet. The data above are obtained from the National Kidney Disease Education Program ( NKDEP) which additionally recommends that when the eGFR is used in patients with extremes of body mass index for purposesof drug dosing, the eGFR should be multiplied by the estimated BMI.CARDIAC ENZYMES Most recent to oldest [Reference Range]: 1 Total CK [12-191 unit/L] 121 unit/L (12/16/16 8:05 PM) DRUG SCREEN Most recent to oldest [Reference Range]: 1 U Amph Scr [Negative] Negative *NA* (12/16/16 8:05 PM) U Gema Scr [Negative] Negative *NA* (12/16/16 8:05 PM) U Benzodia Scr [Negative] Negative *NA* (12/16/16 8:05 PM) U Cocaine Scr [Negative] Negative *NA* (12/16/16 8:05 PM) U Opiate Scr [Negative] Positive *ABN* (12/16/16 8:05 PM) U Phencyc Scr [Negative] Negative *NA* (12/16/16 8:05 PM) U Cannab Scr [Negative] Negative *NA* (12/16/16 8:05 PM) UDS Note See Note (12/16/16 8:05 PM) ENDOCRINOLOGY Most recent to oldest [Reference Range]: 1 S Preg [Negative] Negative *NA* (12/16/16 8:08 PM) URINE AND STOOL Most recent to oldest [Reference Range]: 1 UA Turbidity [Clear] Clear (12/16/16 8:05 PM) UA Color [Yellow] Yellow *NA* (12/16/16 8:05 PM) UA pH [5.0-8.0] 6.0 (12/16/16 8:05 PM) UA Spec Grav [<=1.030] <=1.005 *NA* (12/16/16 8:05 PM) UA Glucose [Negative] Negative (12/16/16 8:05 PM) UA Blood [Negative] Small *ABN* (12/16/16 8:05 PM) UA Ketones [Negative] Negative *NA* (12/16/16 8:05 PM) UA Protein [Negative] Negative (12/16/16 8:05 PM) UA Urobilinogen [0.1-1.0 EU/dL] 0.2 EU/dL (12/16/16 8:05 PM) UA Bili [Negative] Negative *NA* (12/16/16 8:05 PM) UA Leuk Est [Negative] Negative (12/16/16 8:05 PM) UA Nitrite [Negative] Negative (12/16/16 8:05 PM) UA WBC [0-5 /HPF] 0-2 /HPF (12/16/16 8:05 PM) UA RBC [0-2 /HPF] 3-5 /HPF *ABN* (12/16/16 8:05 PM) UA Bacteria [None Seen /HPF] Occasional /HPF (12/16/16 8:05 PM) UA Sq Epi [Few /LPF] Few /LPF (12/16/16 8:05 PM) HEMATOLOGY Most recent to oldest [Reference Range]: 1 WBC [3.7-10.4 K/CMM] 7.0 K/CMM (12/16/16 8:08 PM) RBC [4.20-5.40 M/CMM] 3.76 M/CMM *LOW* (12/16/16 8:08 PM) Hgb [12.0-16.0 g/dL] 14.3 g/dL (12/16/16 8:08 PM) Hct [36.0-48.0 %] 40.7 % (12/16/16 8:08 PM) MCV [80.0-98.0 fL] 108.1 fL *HI* (12/16/16 8:08 PM) MCH [27.0-31.0 pg] 37.9 pg *HI* (12/16/16 8:08 PM) MCHC [32.0-36.0 g/dL] 35.0 g/dL (12/16/16 8:08 PM) RDW [11.5-14.5 %] 15.0 % *HI* (12/16/16 8:08 PM) Platelet [133-450 K/CMM] 185 K/CMM (12/16/16 8:08 PM) MPV [7.4-10.4 fL] 7.4 fL (12/16/16 8:08 PM) Segs [45.0-75.0 %] 69.6 % (12/16/16 8:08 PM) Lymphocytes [20.0-40.0 %] 20.0 % (12/16/16 8:08 PM) Monocytes [2.0-12.0 %] 9.3 % (12/16/16 8:08 PM) Eosinophils [0.0-4.0 %] 0.3 % (12/16/16 8:08 PM) Basophils [0.0-1.0 %] 0.8 % (12/16/16 8:08 PM) Segs-Bands # [1.5-8.1 K/CMM] 4.9 K/CMM (12/16/16 8:08 PM) Lymphocytes # [1.0-5.5 K/CMM] 1.4 K/CMM (12/16/16 8:08 PM) Monocytes # [0.0-0.8 K/CMM] 0.7 K/CMM (12/16/16 8:08 PM) Basophils # [0.0-0.2 K/CMM] 0.1 K/CMM (12/16/16 8:08 PM) Macrocyte [None Seen] 2+ *ABN* (12/16/16 8:08 PM) Immunizations No data available for this section Procedures Procedure Date Related Diagnosis Body Site Cervical and thoracic spine operations Social History Social History Type Response Smoking Status Former smoker; Exposure to Tobacco Smoke None; Cigarette Smoking Last 365 Days No; Reg Smoking Cessation Counseling No Assessment and Plan No data available for this section
--- OUTSIDE RECORDS SUMMARY | 2018-11-28 11:00 | XMS REPORT | Summary of Care ---
:1980 Author Organization [facility] Address [address] [place] [address]- Encounter HQ Freddier_maxine(VIV) [id number] Date(s): 01/23/17 - 01/26/17 [facility] [address] [place] [address]- Discharge Disposition: Home or Self Care Attending Physician: Jodee Andersen MD Admitting Physician: Jodee Andersen MD Vital Signs Most recent to oldest 1 2 3 [Reference Range]: Height 149.86 cm 149.86 cm (01/24/17 1:50 AM) (01/23/17 7:11 PM) Temperature Oral [96.4-99.1 98.4 DegF 98.4 DegF 98.8 DegF DegF] (01/26/17 7:38 AM) (01/26/17 4:15 AM) (01/25/17 11:25 PM) Blood Pressure [90-140/60-90 146/102 mmHg 128/75 mmHg 137/96 mmHg mmHg] *HI* (01/26/17 4:15 AM) (01/25/17 11:25 PM) (01/26/17 7:38 AM) Respiratory Rate [14-20 BRMIN] 18 BRMIN 18 BRMIN 18 BRMIN (01/26/17 7:38 AM) (01/26/17 4:15 AM) (01/25/17 11:25 PM) Peripheral Pulse Rate [60-100 89 bpm 93 bpm 78 bpm bpm] (01/26/17 7:38 AM) (01/26/17 4:15 AM) (01/25/17 11:25 PM) Weight 59.091 kg 62.273 kg (01/24/17 1:50 AM) (01/23/17 7:11 PM) Body Mass Index 26.31 m2 27.73 m2 (01/24/17 1:50 AM) (01/23/17 7:11 PM) Problem List Condition Effective Dates Status Health Status Informant Fibromyalgia(Confirmed) Active Endometrial ca(Confirmed) Active Allergies, Adverse Reactions, Alerts Substance Reaction Severity Status NKDA Active Medications acetaminophen 325 mg oral tablet 650 mg=2 tab, PO, Q4H, PRN Pain 1-3/Temp > 100.4 F, 0 Refill(s) Start Date: 01/26/17 Status: Orderedazithromycin + sodium chloride 0.9% INJ 250 mL 500 mg, Route: IV, [id number], Dosing Weight 59.091, kg, Start date: 01/24/17 9:00: 00 CDT, Duration: 30day, Stop date: 02/22/17 9:00:00 CDT, ABX Indication: Pneumonia Notes: (Same As: Zithromax IV) Start Date: 01/24/17 Stop Date: 01/26/17 Status: Discontinuedcalcium carbonate 1,000 mg, 2 tab, Route: PO, Drug form: CHEWTAB, BID, Dosing Weight 59.091, kg, Start date: 01/26/17 9:00:00 CDT, Duration: 30 day, Stop date: 02/24/17 17:00: 00 CDT Notes: (Same As: Cindy)Calcium Carbonate 500 os=070 mg elemental calcium Dose=_ mg calcium carbonate ( mg elemental calcium) Start Date: 01/26/17 Stop Date: 01/26/17 Status: Discontinuedcalcium gluconate + sodium chloride 0.9% INJ 50 mL 1,000 mg, 10 mL, Route: IVPB, ONCE, Dosing Weight 59.091, kg, Priority: NOW, Start date: 01/25/17 3:39:00 CDT, Stop date: 01/25/17 3:39:00 CDT Start Date: 01/25/17 Stop Date: 01/25/17 Status: CompletedcefTRIAXone + sodium chloride 0.9% INJ 100 mL 1 gm, Route: IVPB, [id number], Dosing Weight 59.091, kg, Start date: 01/24/17 23:00 :00 CDT, Duration: 5day, Stop date: 01/28/17 23:00:00 CDT, ABX Indication: Urinary Tract Infection Notes: (Same As: Rocephin).Use with 100 mL NS and infuse over 30 min MEDICATION WASTE Product Size: 1000 mgProduct Wasted: __0_ mg Start Date: 01/24/17 Stop Date: 01/26/17 Status: [id number] + KCL 20mEq/L 1000ml (Premix) 1,000 mL 1,000 mL, Rate: 125 ml/hr, Infuse over: 8 hr, Route: IV, Dosing Weight 59.091 kg , Total Volume: 1,000, Start date: 01/24/17 2:27:00 CDT, Duration: 30 day, Stop date: 02/23/17 2:26:00 CDT Start Date: 01/24/17 Stop Date: 01/26/17 Status: DiscontinuedDilaudid 0.5 mg, 0.5 mL, Route: IV, Drug form: INJ, Q3H, Dosing Weight 59.091, kg, PRN Pain Score 6-10, Startdate: 01/24/17 9:22:00 CDT, Duration: 30 day, Stop date: 02/23/17 9:21:00 CDT Notes: Same as: Dilaudid Start Date: 01/24/17 Stop Date: 01/26/17 Status: Discontinuedfamotidine 20 mg oral tablet 20 mg=1 tab, PO, BID, # 60 tab, 0 Refill(s) Start Date: 01/26/17 Status: Orderedibuprofen 600 mg oral tablet 600 mg=1 tab, PO, Q8H, PRN pain, # 30 tab, 0 Refill(s) Start Date: 01/26/17 Stop Date: 01/26/17 Status: CompletedKeppra 1,000 mg, 100 mL, Route: IVPB, Drug form: INJ, ONCE, Dosing Weight 59.091, kg, Start date: 01/24/17 21:49:00 CDT, Stop date: 01/24/17 21:49:00 CDT Start Date: 01/24/17 Stop Date: 01/24/17 Status: DeletedKeppra + sodium chloride 0.9% 100 mL INJ (for IV set) 100 mL 1,000 mg, Route: IVPB, ONCE, Start date: 01/24/17 22:07:00 CDT, Stop date: 01/24 22:07:00 CDT Notes: Same as KeppraMix with 100 mL NS, LR or D5W MEDICATION WASTE Product Size: 500 mgProduct Wasted: ___ mg Start Date: 01/24/17 Stop Date: 01/24/17 Status: CompletedKeppra + sodium chloride 0.9% 100 mL INJ (for IV set) 100 mL 1,000 mg, Route: IV, ONCE, Dosing Weight 59.091, kg, Priority: NOW, Start date: 01/25/17 11:14:00 CDT, Stop date: 01/25/17 11:14:00 CDT Notes: Same as KeppraMix with 100 mL NS, LR or D5W MEDICATION WASTE Product Size: 500 mgProduct Wasted: _0__ mg Start Date: 01/25/17 Stop Date: 01/25/17 Status: CompletedKeppra 500 mg oral tablet 500 mg=1 tab, PO, Q12H, # 60 tab, 0 Refill(s) Start Date: 01/26/17 Status: OrderedKeppra 500 mg oral tablet 500 mg, 1 tab, Route: PO, Drug form: TAB, Q12H, Dosing Weight 59.091, kg, Start date: 01/25/17 21:00:00 CDT, Duration: 30 day, Stop date: 02/24/17 9:00:00 CDT Notes: (Same as:Keppra) Start Date: 01/25/17 Stop Date: 01/26/17 Status: DiscontinuedketOROLAC 15 mg, Route: IVP, Drug form: INJ, ONCE, Dosing Weight 62.273, kg, Priority: STAT, Start date: 01/23/17 23:34:00 CDT, Stop date: 01/23/17 23:34:00 CDT Start Date: 01/23/17 Stop Date: 01/23/17 Status: CompletedketOROLAC 15 mg/mL injectable solution 15 mg, 0.5 mL, Route: IVP, Drug form: INJ, Q6H, Dosing Weight 59.091, kg, PRN Pain Score 4-6, Start date: 01/25/17 8:49:00 CDT, Duration: 4 day, Stop date: 8:48:00 CDT Notes: (Same as:Toradol) IV bolus must be given >15 seconds. Give IM administration slowly and deeply into the muscle.Not for use > 4 days MEDICATION WASTE Product Size: 30 mgProduct Wasted: ___ mg Start Date: 01/25/17 Stop Date: 01/26/17 Status: DiscontinuedLidoderm 5% topical film (patch) 1 patch, TOP, Daily, Remove after 12 hours, # 7 patch, 0 Refill(s) Start Date: 01/26/17 Status: OrderedLidoderm 5% topical film (patch) 1 patch, Route: TOP, Daily, Drug form: FILM, Start date: 01/25/17 9:00:00 CDT, Duration: 30 day, Stop date: 02/23/17 9:00:00 CDT, Remove after 12 hours Notes: Apply only once for up to 12 hours in [id number] period (12 hours on and 12 hours off).(Same as: Lidoderm)"Remove old patch before application of new patch" Start Date: 01/25/17 Stop Date: 01/26/17 Status: DiscontinuedLyrica 50 mg, 1 cap, Route: PO, Drug form: CAP, BID, Dosing Weight 59.091, kg, Start date: 01/24/17 9:00:00CDT, Duration: 30 day, Stop date: 02/22/17 17:00:00 CDT Notes: Same as Lyrica Start Date: 01/24/17 Stop Date: 01/26/17 Status: DiscontinuedLyrica 50 mg, PO, BID, 0 Refill(s) Start Date: 01/24/17 Status: Orderedmagnesium sulfate 4 gm, 100 mL, Route: IVPB, Drug form: INJ, ONCE, Dosing Weight 59.091, kg, Priority: NOW, Start date: 01/24/17 11:44:00 CDT, Stop date: 01/24/17 11:44:00 CDT Notes: WASTE: F/P - Sink; E - Municipal Trash Bin Start Date: 01/24/17 Stop Date: 01/24/17 Status: Completedmorphine Sulfate 4 mg, 1 mL, Route: IVP, Drug form: SOLN, Q4H, Dosing Weight 59.091, kg, PRN Pain Score 7-10, Start date: 01/24/17 2:27:00 CDT, Duration: 30 day, Stop date: 02/23/17 2:26:00 CDT Notes: (Same as: MORPhine Sulfate) Start Date: 01/24/17 Stop Date: 01/24/17 Status: Discontinuedmorphine Sulfate 4 mg, 1 mL, Route: IVP, Drug form: SOLN, ONCE, Dosing Weight 62.273, kg, Priority: STAT, Start date:01/23/17 19:36:00 CDT, Stop date: 01/23/17 19:36:00 CDT Notes: (Same as: MORPhine Sulfate) Start Date: 01/23/17 Stop Date: 01/23/17 Status: CompletedNorco 5/325 oral tablet 1 tab, PO, Q4-6H, PRN Pain Score 6-10, X 5 day, # 30 tab, 0 Refill(s) Start Date: 01/26/17 Stop Date: 01/31/17 Status: Orderedondansetron 4 mg, 2 mL, Route: IVP, Drug form: INJ, Q6H, Dosing Weight 59.091, kg, PRN Nausea & Vomiting, Start date: 01/24/17 2:27:00 CDT, Duration: 30 day, Stop date: 02/23/17 2:26:00 CDT Notes: (Same as: Gerardo) MEDICATION WASTE Product Size: 4 mgProduct Wasted: ___ mg Start Date: 01/24/17 Stop Date: 01/26/17 Status: Discontinuedondansetron 4 mg, 2 mL, Route: IVP, Drug form: INJ, ONCE, Dosing Weight 62.273, kg, Priority : STAT, Start date: 01/23/17 19:36:00 CDT, Stop date: 01/23/17 19:36:00 CDT Notes: (Same as: Zofranatoly) MEDICATION WASTE Product Size: 4 mgProduct Wasted: __0_ mg Start Date: 01/23/17 Stop Date: 01/23/17 Status: CompletedPepcid 20 mg, 2 mL, Route: IVP, Drug form: INJ, Q12H, Dosing Weight 59.091, kg, Start date: 01/24/17 9:00:00 CDT, Duration: 30 day, Stop date: 02/22/17 21:00:00 CDT Notes: (Same as: Pepcid)Can be dilute in 5-10cc NS IVP: Slow IV push over at least 2 minutes. Start Date: 01/24/17 Stop Date: 01/26/17 Status: DiscontinuedPepto-Bismol 524 mg, 30 mL, Route: PO, Drug Form: SUSP, Dosing Weight 59.091, kg, QID, PRN Diarrhea, Start date: 01/25/17 22:33:00 CDT, Duration: 30 day, Stop date: 22:32:00 CDT Notes: (Same As: Pepto Bismol and Kaopectate) Start Date: 01/25/17 Stop Date: 01/26/17 Status: DiscontinuedPhenergan 25 mg, Route: IVPB, ONCE, Dosing Weight 62.273, kg, Priority: STAT, Start date: 01/23/17 23:34:00 CDT, Stop date: 01/23/17 23:34:00 CDT Start Date: 01/23/17 Stop Date: 01/23/17 Status: CompletedPhenergan + sodium chloride 0.9% 50ml non PVC bag 50 mL 25 mg, 1 mL, Route: IVPB, Q6H, Dosing Weight 59.091, kg, PRN as needed for nausea/vomiting, Priority: STAT, Start date: 01/24/17 9:22:00 CDT, Duration: 30 day, Stop date: 02/23/17 9:21:00 CDT Notes: Do not give IV push. (Same as: Phenergan) Start Date: 01/24/17 Stop Date: 01/26/17 Status: Discontinuedpotassium chloride 40 mEq, 2 tab, Route: PO, Drug form: ERTAB, ONCE, Dosing Weight 59.091, kg, Start date: 01/24/17 21:50:00 CDT, Stop date: 01/24/17 21:50:00 CDT Notes: (Same as: K-Dur 20)"Do Not Crush" With food and full glass of water Start Date: 01/24/17 Stop Date: 01/24/17 Status: Completedpotassium chloride 10 mEq, 100 mL, Route: IV, Drug form: INJ, Q1H, Dosing Weight 59.091, kg, Start date: 01/24/17 12:00:00 CDT, Duration: 4 doses or times, Stop date: 01/24/17 15: 00:00 CDT Notes: Infuse at a rate of 10 mEq/hr.(Same as: KCL) Start Date: 01/24/17 Stop Date: 01/24/17 Status: Completedpotassium chloride 40 mEq, Route: PO, Drug form: ERTAB, ONCE, Dosing Weight 62.273, kg, Priority: STAT, Start date: 01/23/17 23:10:00 CDT, Stop date: 01/23/17 23:10:00 CDT Start Date: 01/23/17 Stop Date: 01/23/17 Status: CompletedReglan 10 mg, Route: IVP, Drug form: INJ, ONCE, Dosing Weight 62.273, kg, Priority: STAT, Start date: 01/23/17 23:26:00 CDT, Stop date: 01/23/17 23:26:00 CDT Start Date: 01/23/17 Stop Date: 01/23/17 Status: CompletedRocephin 1 gm, Route: IVPB, Drug form: PDR/INJ, ONCE, Dosing Weight 62.273, kg, Priority : STAT, Start date: 01/23/17 23:45:00 CDT, Duration: 1 doses or times, Stop date : 01/23/17 23:45:00 CDT, ABX Indication: Urinary Tract Infection Start Date: 01/23/17 Stop Date: 01/24/17 Status: CompletedSaline Flush 0.9% 10 ml, Route: IVP, Drug Form: INJ, Dosing Weight 59.091, kg, PRN, PRN Line Flush , Start date: 01/24/17 2:27:00 CDT, Duration: 30 day, Stop date: 02/23/17 2:26: 00 CDT Start Date: 01/24/17 Stop Date: 01/24/17 Status: DeletedSaline Flush 0.9% 10 mL, Route: IVP, Drug Form: INJ, Dosing Weight 62.273, kg, PRN, PRN Line Flush , Start date: 01/23/17 19:36:00 CDT, Duration: 30 day, Stop date: 02/22/17 19:35 :00 CDT Notes: (Same as: BD Posiflush) Start Date: 01/23/17 Stop Date: 01/26/17 Status: DiscontinuedSodium Chloride 0.9% (Bolus) IV 1,000 mL, 1000 ml/hr, Infuse Over: 1 hr, Route: IV, 1,000, Drug form: INJ, ONCE , Priority: STAT, Dosing Weight 62.273 kg, Start date: 01/24/17 0:44:00 CDT, Duration: 1 doses or times, Stop date: 01/24/17 0:44:00 CDT Start Date: 01/24/17 Stop Date: 01/24/17 Status: CompletedSodium Chloride 0.9% (Bolus) IV 1,000 mL, 2,000 ml/hr, Infuse Over: 30 minutes, Route: IV, 1,000, Drug form: INJ , ONCE, Priority: STAT, Dosing Weight 62.273 kg, Start date: 01/23/17 19:36:00 CDT, Duration: 1 doses or times, Stop date: 01/23/17 19:36:00 CDT Start Date: 01/23/17 Stop Date: 01/23/17 Status: Completedsodium chloride 0.9% 1000 ml INJ 2,000 mL 2,000 mL, Rate: 1,000 ml/hr, Infuse over: 2 hr, Route: IV, Dosing Weight 59.091 kg, Total Volume: 2,000, Start date: 01/24/17 21:31:00 CDT, Duration: 1 doses or times, Stop date: 01/24/17 23:30:00 CDT Start Date: 01/24/17 Stop Date: 01/24/17 Status: CompletedSodium Chloride 0.9% IV 25 mL, Route: IV, Start date: 01/24/17 0:48:00 CDT, Duration: 30 day, Stop date : 02/23/17 0:47:00 CDT, PRN Line Flush Start Date: 01/24/17 Stop Date: 01/26/17 Status: DiscontinuedTylenol 650 mg, 2 tab, Route: PO, Drug form: TAB, Q4H, Dosing Weight 59.091, kg, PRN Pain 1-3/Temp > 100.4 F, Start date: 01/24/17 22:29:00 CDT, Stop date: 02/23/17 22:28:00 CDT Notes: Do not exceed 4 gm/day. (Same as: Tylenol) Start Date: 01/24/17 Stop Date: 01/26/17 Status: Discontinued Results ELECTROLYTES Most recent to oldest 1 2 3 [Reference Range]: Sodium Lvl [135-145 mEq/L] 137 mEq/L 134 mEq/L 135 mEq/L (01/25/17 1:56 AM) *LOW* (01/24/17 10:14 AM) (01/24/17 8:36 PM) Potassium Lvl [3.5-5.1 mEq/L] 3.5 mEq/L 3.2 mEq/L 3.2 mEq/L (01/25/17 1:56 AM) *LOW* *LOW* (01/24/17 8:36 PM) (01/24/17 10:14 AM) Chloride Lvl [95-109 mEq/L] 105 mEq/L 99 mEq/L 101 mEq/L (01/25/17 1:56 AM) (01/24/17 8:36 PM) (01/24/17 10:14 AM) CO2 [24-32 mEq/L] 21 mEq/L 16 mEq/L 22 mEq/L *LOW* *LOW* *LOW* (01/25/17 1:56 AM) (01/24/17 8:36 PM) (01/24/17 10:14 AM) AGAP [10.0-20.0 mEq/L] 14.5 mEq/L 22.2 mEq/L 15.2 mEq/L (01/25/17 1:56 AM) *HI* (01/24/17 10:14 AM) (01/24/17 8:36 PM) CHEM PANEL Most recent to oldest 1 2 3 [Reference Range]: Creatinine Lvl [0.50-1.40 0.61 mg/dL 1.11 mg/dL 0.52 mg/dL mg/dL] (01/25/17 1:56 AM) (01/24/17 8:36 PM) (01/24/17 10:14 AM) eGFR 116 mL/min/1.73m2 1 64 mL/min/1.73m2 2 122 mL/min/1.73m2 3 *NA* *NA* *NA* (01/25/17 1:56 AM) (01/24/17 8:36 PM) (01/24/17 10:14 AM) BUN [7-22 mg/dL] 2 mg/dL 3 mg/dL 3 mg/dL *LOW* *LOW* *LOW* (01/25/17 1:56 AM) (01/24/17 8:36 PM) (01/24/17 10:14 AM) B/C Ratio [6-25] 3 3 8 *LOW* *LOW* (01/23/17 9:00 PM) (01/25/17 1:56 AM) (01/24/17 8:36 PM) Glucose Lvl [70-99 mg/dL] 109 mg/dL 113 mg/dL 88 mg/dL *HI* *HI* (01/24/17 10:14 AM) (01/25/17 1:56 AM) (01/24/17 8:36 PM) Total Protein [6.4-8.4 g/dL] 7.2 g/dL 8.3 g/dL 9.1 g/dL (01/25/17 1:56 AM) (01/24/17 8:36 PM) *HI* (01/23/17 9:00 PM) Albumin Lvl [3.5-5.0 g/dL] 3.6 g/dL 4.3 g/dL 4.7 g/dL (01/25/17 1:56 AM) (01/24/17 8:36 PM) (01/23/17 9:00 PM) Globulin [2.7-4.2 g/dL] 3.6 g/dL 4.0 g/dL 4.4 g/dL (01/25/17 1:56 AM) (01/24/17 8:36 PM) *HI* (01/23/17 9:00 PM) A/G Ratio [0.7-1.6] 1.0 1.1 1.1 (01/25/17 1:56 AM) (01/24/17 8:36 PM) (01/23/17 9:00 PM) Calcium Lvl [8.5-10.5 mg/dL] 6.8 mg/dL 4 7.6 mg/dL 7.3 mg/dL *CRIT* *LOW* *LOW* (01/25/17 1:56 AM) (01/24/17 8:36 PM) (01/24/17 10:14 AM) Magnesium Lvl [1.8-2.4 mg/dL] 2.2 mg/dL 1.1 mg/dL (01/25/17 1:56 AM) *LOW* (01/24/17 10:14 AM) ALT [0-65 unit/L] 17 unit/L 22 unit/L 30 unit/L (01/25/17 1:56 AM) (01/24/17 8:36 PM) (01/23/17 9:00 PM) AST [0-37 unit/L] 122 unit/L 156 unit/L 194 unit/L *HI* *HI* *HI* (01/25/17 1:56 AM) (01/24/17 8:36 PM) (01/23/17 9:00 PM) Alk Phos [39-136 unit/L] 89 unit/L 105 unit/L 117 unit/L (01/25/17 1:56 AM) (01/24/17 8:36 PM) (01/23/17 9:00 PM) Bili Total [0.2-1.3 mg/dL] 0.6 mg/dL 0.8 mg/dL 0.4 mg/dL (01/25/17 1:56 AM) (01/24/17 8:36 PM) (01/23/17 9:00 PM) Lipase Lvl [73-393 unit/L] 256 unit/L (01/23/17 9:00 PM) Ammonia [<=45.0 uMol/L] 76.0 uMol/L *HI* (01/25/17 1:56 AM) Lactic Acid Lvl [0.5-2.2 0.9 mMol/L 2.2 mMol/L 13.6 mMol/L 5 mMol/L] (01/25/17 5:42 AM) (01/25/17 1:56 AM) *CRIT* (01/24/17 8:36 PM) Procalcitonin Lvl [0.00-0.10 <0.05 ng/mL ng/mL] (01/24/17 4:35 AM) 1Result Comment: The eGFR is calculated using [...] eGFR should be multiplied by the estimated BMI.2Result Comment: The eGFR is calculated using the CKD-EPI formula. In most young, healthy individualsthe eGFR will be >90 mL/ min/1.73m2. The eGFR declines with age. An eGFR [...] eGFR should be multiplied by the estimated BMI.3Result Comment: The eGFR is calculated using the CKD-EPI formula. In most young, healthy individualsthe eGFR will be >90 mL/ min/1.73m2. The eGFR declines with age. An eGFR [...] eGFR should be multiplied by the estimated BMI.4Result Comment: Critical Result(s) called to Talha HALL at 01/25/2017 02:59 by AJC. Read back OK.5Result Comment: Critical Result(s) called to amy schmidt at 01/24/2017 21:25 by marisol. Read back OK.CARDIAC ENZYMES Most recent to oldest [Reference Range]: 1 2 3 Total CK [12-191 unit/L] 162 unit/L (01/23/17 9:00 PM) CK MB [0.5-3.6 ng/mL] <0.5 ng/mL (01/23/17 9:00 PM) CK MB Index [0.0-2.5] <0.3 (01/23/17 9:00 PM) Troponin-I [0.00-0.40 ng/mL] <0.02 ng/mL (01/23/17 9:00 PM) ANEMIA STUDY Most recent to oldest [Reference Range]: 1 2 3 Vitamin B12 Lvl [254-1320 pg/mL] 1397 pg/mL *HI* (01/24/17 8:36 PM) Folate Lvl [>=3.0 ng/mL] 5.0 ng/mL (01/24/17 8:36 PM) PARATHYROID PROFILE Most recent to oldest [Reference Range]: 1 2 3 Ca Ion WB [1.05-1.25 mMol/L] 0.93 mMol/L *LOW* (01/25/17 5:42 AM) Ca Norm WB [1.05-1.25 mMol/L] 0.96 mMol/L *LOW* (01/25/17 5:42 AM) ENDOCRINOLOGY Most recent to oldest [Reference Range]: 1 2 3 S Preg [Negative] Negative *NA* (01/23/17 9:00 PM) Prolactin Lvl 38.8 ng/mL *NA* (01/24/17 8:36 PM) URINE AND STOOL Most recent to oldest [Reference Range]: 1 2 3 UA Turbidity [Clear] Clear Marked (01/24/17 4:35 AM) *ABN* (01/23/17 9:27 PM) UA Color [Yellow] Light Yellow Red *NA* *ABN* (01/24/17 4:35 AM) (01/23/17 9:27 PM) UA pH [5.0-8.0] 6.0 6.0 (01/24/17 4:35 AM) (01/23/17 9:27 PM) UA Spec Grav [<=1.030] 1.013 1.008 (01/24/17 4:35 AM) (01/23/17 9:27 PM) UA Glucose [Negative mg/dL] Negative mg/dL Negative mg/dL *NA* *NA* (01/24/17 4:35 AM) (01/23/17 9:27 PM) UA Blood [Negative] Large Large *ABN* *ABN* (01/24/17 4:35 AM) (01/23/17 9:27 PM) UA Ketones [Negative mg/dL] Trace mg/dL Negative mg/dL *ABN* *NA* (01/24/17 4:35 AM) (01/23/17 9:27 PM) UA Protein [Negative mg/dL] Negative mg/dL 30 mg/dL (01/24/17 4:35 AM) *ABN* (01/23/17 9:27 PM) UA Urobilinogen [0.1-1.0 mg/dL] <=1.0 mg/dL <=1.0 mg/dL *NA* *NA* (01/24/17 4:35 AM) (01/23/17 9:27 PM) UA Bili [Negative] Negative Negative *NA* *NA* (01/24/17 4:35 AM) (01/23/17 9:27 PM) UA Leuk Est [Negative] Negative Negative (01/24/17 4:35 AM) (01/23/17 9:27 PM) UA Nitrite [Negative] Negative Negative (01/24/17 4:35 AM) (01/23/17 9:27 PM) UA WBC [0-5 /HPF] 3 /HPF 89 /HPF (01/24/17 4:35 AM) *HI* (01/23/17 9:27 PM) UA RBC [0-2 /HPF] <1 /HPF 71 /HPF (01/24/17 4:35 AM) *HI* (01/23/17 9:27 PM) UA Bacteria [None Seen /HPF] Occasional /HPF *NA* (01/23/17 9:27 PM) UA Sq Epi [Few /LPF] Few /LPF Many /LPF *NA* *ABN* (01/24/17 4:35 AM) (01/23/17 9:27 PM) UA Mucus [None Seen /LPF] Few /LPF Few /LPF *NA* *NA* (01/24/17 4:35 AM) (01/23/17 9:27 PM) HEMATOLOGY Most recent to oldest 1 2 3 [Reference Range]: WBC [3.7-10.4 K/CMM] 8.3 K/CMM 10.9 K/CMM 6.6 K/CMM (01/25/17 1:56 AM) *HI* (01/23/17 9:00 PM) (01/24/17 8:36 PM) RBC [4.20-5.40 M/CMM] 3.11 M/CMM 3.60 M/CMM 3.82 M/CMM *LOW* *LOW* *LOW* (01/25/17 1:56 AM) (01/24/17 8:36 PM) (01/23/17 9:00 PM) Hgb [12.0-16.0 g/dL] 11.7 g/dL 13.3 g/dL 14.4 g/dL *LOW* (01/24/17 8:36 PM) (01/23/17 9:00 PM) (01/25/17 1:56 AM) Hct [36.0-48.0 %] 33.8 % 40.3 % 41.4 % *LOW* (01/24/17 8:36 PM) (01/23/17 9:00 PM) (01/25/17 1:56 AM) MCV [80.0-98.0 fL] 108.9 fL 111.9 fL 108.6 fL *HI* *HI* *HI* (01/25/17 1:56 AM) (01/24/17 8:36 PM) (01/23/17 9:00 PM) MCH [27.0-31.0 pg] 37.7 pg 37.0 pg 37.8 pg *HI* *HI* *HI* (01/25/17 1:56 AM) (01/24/17 8:36 PM) (01/23/17 9:00 PM) MCHC [32.0-36.0 g/dL] 34.6 g/dL 33.1 g/dL 34.8 g/dL (01/25/17 1:56 AM) (01/24/17 8:36 PM) (01/23/17 9:00 PM) RDW [11.5-14.5 %] 14.2 % 14.8 % 14.8 % (01/25/17 1:56 AM) *HI* *HI* (01/24/17 8:36 PM) (01/23/17 9:00 PM) Platelet [133-450 K/CMM] 160 K/CMM 202 K/CMM 227 K/CMM (01/25/17 1:56 AM) (01/24/17 8:36 PM) (01/23/17 9:00 PM) MPV [7.4-10.4 fL] 8.5 fL 8.2 fL 7.9 fL (01/25/17 1:56 AM) (01/24/17 8:36 PM) (01/23/17 9:00 PM) Segs [45.0-75.0 %] 79.0 % 62.7 % 60.2 % *HI* (01/24/17 8:36 PM) (01/23/17 9:00 PM) (01/25/17 1:56 AM) Bands [0.0-11.0 %] 5.0 % (01/25/17 1:56 AM) Lymphocytes [20.0-40.0 %] 11.0 % 25.3 % 29.8 % *LOW* (01/24/17 8:36 PM) (01/23/17 9:00 PM) (01/25/17 1:56 AM) Atypical Lymphs [<=0.0 %] 0.0 % (01/25/17 1:56 AM) Monocytes [2.0-12.0 %] 5.0 % 10.0 % 8.6 % (01/25/17 1:56 AM) (01/24/17 8:36 PM) (01/23/17 9:00 PM) Eosinophils [0.0-4.0 %] 1.2 % 0.4 % (01/24/17 8:36 PM) (01/23/17 9:00 PM) Basophils [0.0-1.0 %] 0.8 % 1.0 % (01/24/17 8:36 PM) (01/23/17 9:00 PM) Segs-Bands # [1.5-8.1 K/CMM] 7.0 K/CMM 6.8 K/CMM 4.0 K/CMM (01/25/17 1:56 AM) (01/24/17 8:36 PM) (01/23/17 9:00 PM) Lymphocytes # [1.0-5.5 K/CMM] 0.9 K/CMM 2.8 K/CMM 2.0 K/CMM *LOW* (01/24/17 8:36 PM) (01/23/17 9:00 PM) (01/25/17 1:56 AM) Monocytes # [0.0-0.8 K/CMM] 0.4 K/CMM 1.1 K/CMM 0.6 K/CMM (01/25/17 1:56 AM) *HI* (01/23/17 9:00 PM) (01/24/17 8:36 PM) Eosinophils # [0.0-0.5 K/CMM] 0.1 K/CMM (01/24/17 8:36 PM) Basophils # [0.0-0.2 K/CMM] 0.1 K/CMM 0.1 K/CMM (01/24/17 8:36 PM) (01/23/17 9:00 PM) Macrocyte [None Seen] 2+ 2+ *ABN* *ABN* (01/24/17 8:36 PM) (01/23/17 9:00 PM) Plt Morph Normal Normal (01/25/17 1:56 AM) (01/24/17 8:36 PM) PT [12.0-14.7 seconds] 15.0 seconds *HI* (01/24/17 8:36 PM) INR [0.85-1.17] 1.16 (01/24/17 8:36 PM) PTT [22.9-35.8 seconds] 27.3 seconds (01/24/17 8:36 PM) BACTERIAL - SEROLOGY Most recent to oldest [Reference Range]: 1 2 3 Source Strep Urine *NA* (01/25/17 6:32 AM) Strep pneumoniae Ag [Negative] Negative (01/25/17 6:32 AM) VIRAL - SEROLOGY Most recent to oldest [Reference Range]: 1 2 3 Influ A [Negative] Negative (01/24/17 11:12 PM) Influ B [Negative] Negative (01/24/17 11:12 PM) Immunizations No data available for this section Procedures Procedure Date Related Diagnosis Body Site Cervical and thoracic spine operations Social History Social History Type Response Alcohol Current, Type Wine, Liquor. Frequency: 1-2 times per week. Alcohol use interferes with work or home: No. Drinks more than intended: No. Others hurt by drinking: No. Ready to change: No. Household alcohol concerns: No. Smoking Status Former smoker; Exposure to Tobacco Smoke None; Cigarette Smoking Last 365 Days No; Reg Smoking Cessation Counseling No Assessment and Plan Extracted from: Title: Critical Care Progress Note Author: Roxana Lo DO Date: Assessment/Plan Impression: 1. Seizure: Patient admits to having a seizure but is currently not on any medication. She states that she is unsure of the reason why she has seizures but I do questionquestion if this is second rayo to alcohol withdrawal. Patient states that her last drink [...] patient on telemetry. CCT: 48 minutes Extracted from: Title: History and Physical Author: Tucker Kennedy MD [...]
--- OUTSIDE RECORDS SUMMARY | 2018-11-28 11:00 | XMS REPORT | Summary of Care ---
:[address] [facility] Address [address] [place] [address]- Encounter HQ Christian_maxine(VIV) [id number] Date(s): 12/04/16 - 12/04/16 [facility] [address] [place] [address]- [phone] Discharge Diagnosis: Abnormal AST Discharge Diagnosis: Elevated MCV Discharge Diagnosis: Bilateral lower extremity pain Discharge Disposition: Home or Self Care Attending Physician: Lincoln Zaragoza MD Vital Signs Most recent to oldest [Reference Range]: 1 2 Height 149.86 cm (12/04/16 11:22 AM) Temperature Oral [96.4-99.1 DegF] 98.3 DegF (12/04/16 1:31 PM) Blood Pressure [90-140/60-90 mmHg] 140/89 mmHg 146/111 mmHg (12/04/16 1:31 PM) *HI* (12/04/16 11:22 AM) Respiratory Rate [14-20 BRMIN] 18 BRMIN 20 BRMIN (12/04/16 1:31 PM) (12/04/16 11:22 AM) Peripheral Pulse Rate [60-100 bpm] 88 bpm 92 bpm (12/04/16 1:31 PM) (12/04/16 11:22 AM) Weight 59.091 kg (12/04/16 11:22 AM) Body Mass Index 26.31 m2 (12/04/16 11:22 AM) Problem List No data available for this section Allergies, Adverse Reactions, Alerts Substance Reaction Severity Status NKDA Active Medications famotidine 20 mg oral tablet 20 mg=1 tab, PO, BID, # 28 tab, 0 Refill(s) Start Date: 12/04/16 Stop Date: 12/18/16 Status: Orderedmorphine Sulfate 4 mg, 1 mL, Route: IVP, Drug form: INJ, ONCE, Dosing Weight 59.091, kg, Priority : STAT, Start date: 12/04/16 11:55:00 CDT, Stop date: 12/04/16 11:55:00 CDT Notes: (Same as:MORPhine Sulfate) Start Date: 12/04/16 Stop Date: 12/04/16 Status: Completedsucralfate 1 g/10 mL oral suspension 1 gm=10 ml, PO, Before Meals & Bedtime, # 200 ml, 1 Refill(s) Start Date: 12/04/16 Status: Orderedtramadol 50 mg oral tablet 50 mg=1 tab, PO, Q6H, PRN Pain, X 10 day, # 40 tab, 0 Refill(s) Start Date: 12/04/16 Stop Date: 12/14/16 Status: OrderedZofran 4 mg, 2 mL, Route: IVP, Drug form: INJ, ONCE, Dosing Weight 59.091, kg, Priority : STAT, Start date: 12/04/16 11:55:00 CDT, Stop date: 12/04/16 11:55:00 CDT Notes: (Same as: Zofran) MEDICATION WASTE Product Size: 4 mgProduct Wasted: 0___ mg Start Date: 12/04/16 Stop Date: 12/04/16 Status: Completed Results ELECTROLYTES Most recent to oldest [Reference Range]: 1 Sodium Lvl [135-145 mEq/L] 140 mEq/L (12/04/16 12:09 PM) Potassium Lvl [3.5-5.1 mEq/L] 4.4 mEq/L (12/04/16 12:09 PM) Chloride Lvl [95-109 mEq/L] 102 mEq/L (12/04/16 12:09 PM) CO2 [24-32 mEq/L] 27 mEq/L (12/04/16 12:09 PM) AGAP [10.0-20.0 mEq/L] 15.4 mEq/L (12/04/16 12:09 PM) CHEM PANEL Most recent to oldest [Reference Range]: 1 Creatinine Lvl [0.50-1.40 mg/dL] 0.59 mg/dL (12/04/16 12:09 PM) eGFR 117 mL/min/1.73m2 1 *NA* (12/04/16 12:09 PM) BUN [7-22 mg/dL] 6 mg/dL *LOW* (12/04/16 12:09 PM) B/C Ratio [6-25] 10 (12/04/16 12:09 PM) Glucose Lvl [70-99 mg/dL] 89 mg/dL (12/04/16:09 PM) Total Protein [6.4-8.4 g/dL] 8.9 g/dL *HI* (12/04/16 12:09 PM) Albumin Lvl [3.5-5.0 g/dL] 4.9 g/dL (12/04/16:09 PM) Globulin [2.7-4.2 g/dL] 4.0 g/dL (12/04/16:09 PM) A/G Ratio [0.7-1.6] 1.2 (12/04/16:09 PM) Calcium Lvl [8.5-10.5 mg/dL] 9.5 mg/dL (12/04/16 12:09 PM) Phosphorus [2.5-4.5 mg/dL] 3.2 mg/dL (12/04/16 12:09 PM) Magnesium Lvl [1.8-2.4 mg/dL] 2.1 mg/dL (12/04/16 12:09 PM) ALT [0-65 unit/L] 59 unit/L (12/04/16 12:09 PM) AST [0-37 unit/L] 374 unit/L *HI* (12/04/16 12:09 PM) Alk Phos [39-136 unit/L] 110 unit/L (12/04/16 12:09 PM) Bili Total [0.2-1.3 mg/dL] 0.5 mg/dL (12/04/16 12:09 PM) 1Result Comment: The eGFR is calculated [...] [Reference Range]: 1 Total CK [12-191 unit/L] 102 unit/L (12/04/16 12:09 PM) URINE AND STOOL Most recent to oldest [Reference Range]: 1 UA Turbidity [Clear] Clear (12/04/16 12:09 PM) UA Color [Yellow] Yellow *NA* (12/04/16 12:09 PM) UA pH [5.0-8.0] 5.5 (12/04/16 12:09 PM) UA Spec Grav [<=1.030] <=1.005 *NA* (12/04/16 12:09 PM) UA Glucose [Negative] Negative (12/04/16 12:09 PM) UA Blood [Negative] Negative (12/04/16 12:09 PM) UA Ketones [Negative] Negative *NA* (12/04/16 12:09 PM) UA Protein [Negative] Negative (12/04/16 12:09 PM) UA Urobilinogen [0.1-1.0 EU/dL] 0.2 EU/dL (12/04/16 12:09 PM) UA Bili [Negative] Negative *NA* (12/04/16 12:09 PM) UA Leuk Est [Negative] Negative (12/04/16 12:09 PM) UA Nitrite [Negative] Negative (12/04/16 12:09 PM) UA WBC [None Seen /HPF] 0-2 /HPF (12/04/16 12:09 PM) UA RBC [0-2 /HPF] 0-2 /HPF (12/04/16 12:09 PM) UA Bacteria [None Seen /HPF] Occasional /HPF (12/04/16 12:09 PM) UA Sq Epi [Few /LPF] Few /LPF (12/04/16 12:09 PM) UA Mucus [None Seen /LPF] Few /LPF (12/04/16 12:09 PM) HEMATOLOGY Most recent to oldest [Reference Range]: 1 WBC [3.7-10.4 K/CMM] 7.1 K/CMM (12/04/16 12:09 PM) RBC [4.20-5.40 M/CMM] 3.76 M/CMM *LOW* (12/04/16:09 PM) Hgb [12.0-16.0 g/dL] 14.2 g/dL (12/04/16 12:09 PM) Hct [36.0-48.0 %] 41.2 % (12/04/16:09 PM) MCV [80.0-98.0 fL] 109.6 fL *HI* (12/04/16: PM) MCH [27.0-31.0 pg] 37.9 pg *HI* (12/04/16:09 PM) MCHC [32.0-36.0 g/dL] 34.6 g/dL (12/04/16:09 PM) RDW [11.5-14.5 %] 14.6 % *HI* (12/04/16:09 PM) Platelet [133-450 K/CMM] 255 K/CMM (12/04/16:09 PM) MPV [7.4-10.4 fL] 7.7 fL (12/04/16 12:09 PM) Segs [45.0-75.0 %] 65.2 % (12/04/16:09 PM) Lymphocytes [20.0-40.0 %] 23.7 % (12/04/16 12:09 PM) Monocytes [2.0-12.0 %] 8.7 % (12/04/16 12:09 PM) Eosinophils [0.0-4.0 %] 1.1 % (12/04/16 12:09 PM) Basophils [0.0-1.0 %] 1.3 % *HI* (12/04/16:09 PM) Segs-Bands # [1.5-8.1 K/CMM] 4.6 K/CMM (12/04/16 12:09 PM) Lymphocytes # [1.0-5.5 K/CMM] 1.7 K/CMM (12/04/16 12:09 PM) Monocytes # [0.0-0.8 K/CMM] 0.6 K/CMM (12/04/16 12:09 PM) Eosinophils # [0.0-0.5 K/CMM] 0.1 K/CMM (12/04/16 12:09 PM) Basophils # [0.0-0.2 K/CMM] 0.1 K/CMM (12/04/16 12:09 PM) Macrocyte [None Seen] 2+ *ABN* (12/04/16 12:09 PM) Plt Morph Normal (12/04/16 12:09 PM) Immunizations No data available for this section Procedures Procedure Date Related Diagnosis Body Site Cervical and thoracic spine operations Social History Social History Type Response Smoking Status Former smoker; Exposure to Tobacco Smoke None; Cigarette Smoking Last 365 Days No; Reg Smoking Cessation Counseling No Assessment and Plan No data available for this section
--- OUTSIDE RECORDS SUMMARY | 2018-11-28 11:00 | XMS REPORT | Summary of Care ---
:1980 Author Organization [facility] Address [address] [place] [address]- Encounter HQ Christian_maxine(FIN) [id number] Date(s): 08/05/17 - 08/05/17 [facility] [address] [place] [address]- Encounter Diagnosis Headache, classical migraine (Discharge Diagnosis) - 08/05/17 Acute vomiting (Discharge Diagnosis) - 08/05/17 Acute lower UTI (Discharge Diagnosis) - 08/05/17 Migraine with aura, not intractable, without status migrainosus (Final) - Urinary tract infection, site not specified (Final) - Discharge Disposition: Home or Self Care Attending Physician: Mamadou Hanson MD Vital Signs Most recent to oldest 1 2 3 [Reference Range]: Height 149.86 cm (08/05/17 12:51 AM) Temperature Oral [96.4-99.1 97.4 DegF DegF] (08/05/17 12:51 AM) Blood Pressure [90-140/60-90 128/94 mmHg 125/92 mmHg 129/92 mmHg mmHg] (08/05/17 5:30 AM) (08/05/17 4:00 AM) (08/05/17 2:05 AM) Respiratory Rate [14-20 BRMIN] 20 BRMIN 20 BRMIN 20 BRMIN (08/05/17 5:30 AM) (08/05/17 4:00 AM) (08/05/17 2:05 AM) Peripheral Pulse Rate [60-100 89 bpm 94 bpm 95 bpm bpm] (08/05/17 5:30 AM) (08/05/17 4:00 AM) (08/05/17 2:05 AM) Weight 61.364 kg (08/05/17 12:51 AM) Body Mass Index 27.32 m2 (08/05/17 12:51 AM) Problem List Condition Effective Dates Status Health Status Informant Fibromyalgia(Confirmed) Active Endometrial ca(Confirmed) Active Allergies, Adverse Reactions, Alerts Substance Reaction Severity Status NKDA Active Medications Bactrim DS 800 mg- 160 mg oral tablet 1 tab, PO, BID, X 5 day, # 10 tab, 0 Refill(s) Start Date: 08/05/17 Stop Date: 08/10/17 Status: CompletedBenadryl 25 mg, Route: IVP, ONCE, Dosing Weight 61.364, kg, Priority: STAT, Start date: 08/05/17 1:08:00 CDT,Stop date: 08/05/17 1:08:00 CDT Start Date: 08/05/17 Stop Date: 08/05/17 Status: DiscontinuedcefTRIAXone 1 gm, Route: IVPB, Drug form: PDR/INJ, ONCE, Dosing Weight 61.364, kg, Priority : STAT, Start date: 08/05/17 4:17:00 CDT, Stop date: 08/05/17 4:17:00 CDT, ABX Indication: Urinary Tract Infection Start Date: 08/05/17 Stop Date: 08/05/17 Status: CompletedCompazine 10 mg, Route: IV, ONCE, Dosing Weight 61.364, kg, Start date: 08/05/17 1:32:00 CDT, Stop date: 08/05/17 1:32:00 CDT Start Date: 08/05/17 Stop Date: 08/05/17 Status: Completedfamotidine 20 mg, Route: IVP, ONCE, Dosing Weight 61.364, kg, Priority: STAT, Start date: 08/05/17 1:08:00 CDT,Stop date: 08/05/17 1:08:00 CDT Start Date: 08/05/17 Stop Date: 08/05/17 Status: CompletedFioricet with Codeine 50 mg-300 mg-40 mg-30 mg oral capsule 1 cap, PO, QID, PRN Headache, Do not exceed 6 capsules in 24 hours, X 5 day, # 24 cap, 0 Refill(s) Start Date: 08/05/17 Stop Date: 08/10/17 Status: CompletedketOROLAC 30 mg, Route: IVP, Drug form: INJ, ONCE, Dosing Weight 61.364, kg, Priority: STAT, Start date: 08/05/17 2:43:00 CDT, Stop date: 08/05/17 2:43:00 CDT Start Date: 08/05/17 Stop Date: 08/05/17 Status: Completedmetoclopramide 10 mg, Route: IVP, Drug form: INJ, ONCE, Dosing Weight 61.364, kg, Priority: STAT, Start date: 08/05/17 1:08:00 CDT, Stop date: 08/05/17 1:08:00 CDT Start Date: 08/05/17 Stop Date: 08/05/17 Status: Discontinuedmorphine Sulfate 4 mg, Route: IVP, ONCE, Dosing Weight 61.364, kg, Priority: STAT, Start date: 2:08:00 CDT, Stop date: 08/05/17 2:08:00 CDT Start Date: 08/05/17 Stop Date: 08/05/17 Status: CompletedNS (Bolus) IV 1,000 mL, 1,000 ml/hr, Infuse Over: 1 hr, Route: IV, ONCE, Priority: STAT, Dosing Weight 61.364 kg, Start date: 08/05/17 1:34:00 CDT, Stop date: 08/05/17 1 :34:00 CDT Start Date: 08/05/17 Stop Date: 08/05/17 Status: CompletedPhenergan + Sodium Chloride 0.9% IV 50 mL 6.25 mg, 0.25 mL, Route: IVPB, ONCE, Dosing Weight 61.364, kg, Priority: STAT, Start date: 08/05/17 5:07:00 CDT, Stop date: 08/05/17 5:07:00 CDT Notes: Do not give IV push. (Same as: Phenergan) Start Date: 08/05/17 Stop Date: 08/05/17 Status: CompletedSaline Flush 0.9% 10 mL, Route: IVP, Drug Form: INJ, Dosing Weight 61.364, kg, PRN, PRN Line Flush , Start date: 08/05/17 1:08:00 CDT, Duration: 30 day, Stop date: 09/04/17 1:07: 00 CDT Notes: (Same as: BD Posiflush) Start Date: 08/05/17 Stop Date: 08/05/17 Status: DiscontinuedZofran 4 mg, Route: IVP, Drug form: INJ, ONCE, Dosing Weight 61.364, kg, Priority: STAT , Start date: 08/05/17 4:21:00 CDT, Stop date: 08/05/17 4:21:00 CDT Start Date: 08/05/17 Stop Date: 08/05/17 Status: CompletedZofran ODT 4 mg oral tablet, disintegrating 4 mg=1 tab, PO, TID, PRN Nausea & Vomiting, Dissolve tab under tongue, # 6 tab, 0 Refill(s) Start Date: 08/05/17 Stop Date: 08/23/17 Status: Completed Results ELECTROLYTES Most recent to oldest [Reference Range]: 1 Sodium Lvl [135-145 mEq/L] 139 mEq/L (08/05/17 1:39 AM) Potassium Lvl [3.5-5.1 mEq/L] 3.7 mEq/L (08/05/17 1:39 AM) Chloride Lvl [95-109 mEq/L] 99 mEq/L (08/05/17 1:39 AM) CO2 [24-32 mEq/L] 21 mEq/L *LOW* (08/05/17 1:39 AM) AGAP [10.0-20.0 mEq/L] 22.7 mEq/L *HI* (08/05/17 1:39 AM) CHEM PANEL Most recent to oldest [Reference Range]: 1 Creatinine Lvl [0.50-1.40 mg/dL] 0.62 mg/dL (08/05/17 1:39 AM) eGFR 115 mL/min/1.73m2 1 *NA* (08/05/17 1:39 AM) BUN [7-22 mg/dL] 4 mg/dL *LOW* (08/05/17 1:39 AM) B/C Ratio [6-25] 6 (08/05/17 1:39 AM) Glucose Lvl [70-99 mg/dL] 100 mg/dL *HI* (08/05/17 1:39 AM) Total Protein [6.4-8.4 g/dL] 9.1 g/dL *HI* (08/05/17 1:39 AM) Albumin Lvl [3.5-5.0 g/dL] 4.7 g/dL (08/05/17 1:39 AM) Globulin [2.7-4.2 g/dL] 4.4 g/dL *HI* (08/05/17 1:39 AM) A/G Ratio [0.7-1.6] 1.1 (08/05/17 1:39 AM) Calcium Lvl [8.5-10.5 mg/dL] 8.7 mg/dL (08/05/17 1:39 AM) Magnesium Lvl [1.8-2.4 mg/dL] 2.0 mg/dL (08/05/17 1:39 AM) ALT [0-65 unit/L] 42 unit/L (08/05/17 1:39 AM) AST [0-37 unit/L] 240 unit/L *HI* (08/05/17 1:39 AM) Alk Phos [39-136 unit/L] 104 unit/L (08/05/17 1:39 AM) Bili Total [0.2-1.3 mg/dL] 0.5 mg/dL (08/05/17 1:39 AM) Lipase Lvl [73-393 unit/L] 172 unit/L (08/05/17 1:39 AM) 1Result Comment: The eGFR is calculated using the CKD-EPI formula. In most young , healthy individualsthe eGFR will be >90 mL/min/1.73m2. The eGFR declines with age. An eGFR of 60-89 may be normal insome populations, particularly the elderly, for whom the [...] eGFR should be multiplied by the estimated BMI.ENDOCRINOLOGY Most recent to oldest [Reference Range]: 1 S Preg [Negative] Negative *NA* (08/05/17 1:39 AM) URINE AND STOOL Most recent to oldest [Reference Range]: 1 UA Turbidity [Clear] Marked *ABN* (08/05/17 3:53 AM) UA Color [Yellow] Yellow *NA* (08/05/17 3:53 AM) UA pH [5.0-8.0] 5.0 (08/05/17 3:53 AM) UA Spec Grav [<=1.030] 1.016 (08/05/17 3:53 AM) UA Glucose [Negative mg/dL] Negative mg/dL *NA* (08/05/17 3:53 AM) UA Blood [Negative] Negative (08/05/17 3:53 AM) UA Ketones [Negative mg/dL] 20 mg/dL *ABN* (08/05/17 3:53 AM) UA Protein [Negative mg/dL] 30 mg/dL *ABN* (08/05/17 3:53 AM) UA Urobilinogen [0.1-1.0 mg/dL] <=1.0 mg/dL *NA* (08/05/17 3:53 AM) UA Bili [Negative] Negative *NA* (08/05/17 3:53 AM) UA Leuk Est [Negative] Small *ABN* (08/05/17 3:53 AM) UA Nitrite [Negative] Positive *ABN* (08/05/17 3:53 AM) UA WBC [0-5 /HPF] 27 /HPF *HI* (08/05/17 3:53 AM) UA RBC [0-2 /HPF] 1 /HPF (08/05/17 3:53 AM) UA Bacteria [None Seen /HPF] Occasional /HPF *NA* (08/05/17 3:53 AM) UA Sq Epi [Few /LPF] Many /LPF *ABN* (08/05/17 3:53 AM) UA Mucus [None Seen /LPF] Few /LPF *NA* (08/05/17 3:53 AM) HEMATOLOGY Most recent to oldest [Reference Range]: 1 WBC [3.7-10.4 K/CMM] 7.1 K/CMM (08/05/17 1:39 AM) RBC [4.20-5.40 M/CMM] 3.84 M/CMM *LOW* (08/05/17 1:39 AM) Hgb [12.0-16.0 g/dL] 14.1 g/dL (08/05/17 1:39 AM) Hct [36.0-48.0 %] 41.1 % (08/05/17 1:39 AM) MCV [80.0-98.0 fL] 107.0 fL *HI* (08/05/17 1:39 AM) MCH [27.0-31.0 pg] 36.7 pg *HI* (08/05/17 1:39 AM) MCHC [32.0-36.0 g/dL] 34.3 g/dL (08/05/17 1:39 AM) RDW [11.5-14.5 %] 16.1 % *HI* (08/05/17 1:39 AM) MPV [7.4-10.4 fL] 7.4 fL (08/05/17 1:39 AM) Platelet [133-450 K/CMM] 253 K/CMM (08/05/17 1:39 AM) Segs [45.0-75.0 %] 73.9 % (08/05/17 1:39 AM) Lymphocytes [20.0-40.0 %] 17.7 % *LOW* (08/05/17 1:39 AM) Monocytes [2.0-12.0 %] 6.7 % (08/05/17 1:39 AM) Eosinophils [0.0-4.0 %] 0.5 % (08/05/17 1:39 AM) Basophils [0.0-1.0 %] 1.2 % *HI* (08/05/17 1:39 AM) Segs-Bands # [1.5-8.1 K/CMM] 5.3 K/CMM (08/05/17 1:39 AM) Lymphocytes # [1.0-5.5 K/CMM] 1.3 K/CMM (08/05/17 1:39 AM) Monocytes # [0.0-0.8 K/CMM] 0.5 K/CMM (08/05/17 1:39 AM) Basophils # [0.0-0.2 K/CMM] 0.1 K/CMM (08/05/17 1:39 AM) Macrocyte [None Seen] 2+ *ABN* (08/05/17 1:39 AM) PT [12.0-14.7 seconds] 13.7 seconds (08/05/17 1:39 AM) INR [0.85-1.17] 1.05 (08/05/17 1:39 AM) PTT [22.9-35.8 seconds] 26.1 seconds (08/05/17 1:39 AM) Microbiology Reports TEST:Culture: Urine STATUS:Auth (Verified) BODY SITE: SOURCE:Urine, Clean Catch COLLECTED DATE/TIME:08/05/17 3:53 AMFINAL REPORT>100,000 CFU/mL Escherichia coli ORGANISM:Escherichia coli Immunizations Not Given Vaccine Date Status Refusal Reason pneumococcal 23-valent vaccine 11/09/17 Not Given Patient Refuses Procedures Procedure Date Related Diagnosis Body Site Status Cervical and thoracic spine operations Completed Knee joint operation Completed Social History Social History Type Response Substance Abuse Use: None. Alcohol Current, Type Wine, Liquor. Frequency: 3-5 times per week. Alcohol use interferes with work or home: No. Drinks more than intended: No. Others hurt by drinking: No. Ready to change: No. Household alcohol concerns: No. Smoking Status Never smoker; Type: Cigarettes; Exposure to Tobacco Smoke None ; Cigarette Smoking Last 365 Days No; Reg Smoking Cessation Counseling No entered on: 11/04/17 Assessment and Plan No data available for this section
--- OUTSIDE RECORDS SUMMARY | 2018-11-28 11:01 | XMS REPORT | Summary of Care ---
:1980 Author Organization [facility] Address [address] [place] [address]- Encounter HQ Freddier_maxine(FIN) [id number] Date(s): 11/04/17 - 11/09/17 [facility] [address] [place] [address]- Discharge Disposition: Home or Self Care Attending Physician: Farheen Gonzales MD Admitting Physician: Farheen Gonzales MD Vital Signs Most recent to oldest 1 2 3 [Reference Range]: Height 149.86 cm 154.94 cm (11/04/17 8:04 AM) (11/04/17 5:05 AM) Current Weight 59.045 kg 59.2 kg 59.5 kg (11/08/17 4:55 AM) (11/07/17 4:45 AM) (11/05/17 6:12 AM) Temperature Oral [96.4-99.1 97.7 DegF 98.1 DegF 98.3 DegF DegF] (11/09/17 8:22 AM) (11/07/17 3:23 AM) (11/07/17 12:04 AM) Blood Pressure [90-140/60-90 113/79 mmHg 121/87 mmHg 129/92 mmHg mmHg] (11/09/17 8:22 AM) (11/09/17 4:01 AM) (11/09/17 12:00 AM) Respiratory Rate [14-20 BRMIN] 18 BRMIN 18 BRMIN 18 BRMIN (11/09/17 8:22 AM) (11/09/17 4:01 AM) (11/09/17 12:00 AM) Peripheral Pulse Rate [60-100 105 bpm 99 bpm 75 bpm bpm] *HI* (11/09/17 4:01 AM) (11/09/17 12:00 AM) (11/09/17 8:22 AM) Weight 61.8 kg 62.727 kg (11/04/17 8:04 AM) (11/04/17 5:05 AM) Body Mass Index 27.52 m2 26.13 m2 (11/04/17 8:04 AM) (11/04/17 5:05 AM) Problem List Condition Effective Dates Status Health Status Informant Fibromyalgia(Confirmed) Active Endometrial ca(Confirmed) Active Allergies, Adverse Reactions, Alerts Substance Reaction Severity Status NKDA Active Medications acetaminophen 650 mg, 2 tab, Route: PO, Drug form: TAB, Q6H, Dosing Weight 61.8, kg, PRN Pain Score 1-3, Start date: 11/06/17 14:21:00 CDT, Duration: 30 day, Stop date: 12/06 14:20:00 CDT Notes: Do not exceed 4 gm/day. (Same as: Tylenol) Start Date: 11/06/17 Stop Date: 11/09/17 Status: Discontinuedacetaminophen-codeine #3 1 tab, Route: PO, Drug Form: TAB, Dosing Weight 61.8, kg, Q6H, PRN Pain Score 7- 10, Start date: 11/07/17 11:15:00 CDT, Duration: 30 day, Stop date: 12/07/17 11: 14:00 CDT Notes: Do not exceed 4gm/day of acetaminophen. (Same as: Tylenol with Codeine # 3) Start Date: 11/07/17 Stop Date: 11/09/17 Status: Discontinuedacetaminophen-codeine 300 mg-30 mg oral tablet 1 tab, PO, Q6H, PRN Pain Score 7-10, X 14 day, # 40 tab, 0 Refill(s) Start Date: 11/09/17 Stop Date: 11/09/17 Status: Discontinuedacetaminophen-hydrocodone 325 mg-10 mg oral tablet 1 tab, Route: PO, Drug Form: TAB, Dosing Weight 61.8, kg, Q4H, PRN Pain Score 6- 10, Start date: 11/06/17 14:21:00 CDT, Duration: 30 day, Stop date: 12/06/17 14: 20:00 CDT Notes: Do not exceed 4gm/day of acetaminophen. (Same as: Pierce 325/10) Start Date: 11/06/17 Stop Date: 11/07/17 Status: Discontinuedacetaminophen-hydrocodone 325 mg-5 mg oral tablet 1 tab, Route: PO, Drug Form: TAB, Dosing Weight 61.8, kg, Q4H, PRN Pain Score 4- 6, Start date: 11/06/17 14:21:00 CDT, Duration: 30 day, Stop date: 12/06/17 14: 20:00 CDT Notes: (Same as: Pierce 325/5) Do not exceed 4gm/day of acetaminophen. Start Date: 11/06/17 Stop Date: 11/07/17 Status: DiscontinuedAtivan 2 mg, Route: IVP, Drug form: INJ, ONCE, Dosing Weight 62.727, kg, Priority: STAT , Start date: 11/04/17 6:09:00 CDT, Stop date: 11/04/17 6:09:00 CDT Start Date: 11/04/17 Stop Date: 11/04/17 Status: CompletedAtivan 2 mg oral tablet 2 mg=1 tab, PO, BID, PRN as needed for anxiety, 0 Refill(s) Start Date: 11/04/17 Status: OrderedAtivan 60 mg in NS 60 mL (Titrate.) IV 60 mg + Sodium Chloride 0.9% IV 30 mL 60 mg, 30 mL, Rate: Titrate, Start Dose: 1 mg/hr, Titration: Rebolus 1 milligram IV and/or Titrate by 1 mg/hour every 30 minutes, Goal(s): 0, Max Dose : 10 mg/hr, Route: IV, Dosing Weight 62.727 kg, Total Volume: 60, Start date: 6:09:00 CDT, D... Notes: (Same as: Ativan) Start Date: 11/04/17 Stop Date: 11/05/17 Status: Voided With ResultsBD Normal Saline Flush 25 mL, Route: IV, Drug Form: INJ, PRN, PRN Line Flush, Start date: 11/05/17 14: 50:00 CDT, Duration: 30 day, Stop date: 12/05/17 14:49:00 CDT Notes: (Same as: BD Posiflush) Start Date: 11/05/17 Stop Date: 11/09/17 Status: Discontinuedcalcium carbonate 500 mg (200 mg elemental calcium) oral tablet 500 mg, 1 tab, Route: PO, Drug form: CHEWTAB, PRN, Dosing Weight 61.8, kg, PRN Abnormal Lab Result, FOR ICU USE ONLY, Start date: 11/04/17 8:57:00 CDT, Duration: 30 day, Stop date: 12/04/17 8:56:00 CDT Notes: (Same As: Yovanas)Calcium Carbonate 500 ed=964 mg elemental calcium Dose=_ mg calcium carbonate ( mg elemental calcium) Start Date: 11/04/17 Stop Date: 11/09/17 Status: Discontinuedcalcium carbonate 500 mg (200 mg elemental calcium) oral tablet 1,000 mg, 2 tab, Route: PO, Drug form: CHEWTAB, PRN, Dosing Weight 61.8, kg, PRN Abnormal Lab Result, FOR ICU USE ONLY, Start date: 11/04/17 8:57:00 CDT, Duration: 30 day, Stop date: 12/04/17 8:56:00 CDT Notes: (Same As: Cindy)Calcium Carbonate 500 ef=928 mg elemental calcium Dose=_ mg calcium carbonate ( mg elemental calcium) Start Date: 11/04/17 Stop Date: 11/09/17 Status: Discontinuedcalcium gluconate + Sodium Chloride 0.9% IV 50 mL 1 gm, 10 mL, Route: IVPB, PRN, Dosing Weight 61.8, kg, PRN Abnormal Lab Result, Start date: 188:57:00 CDT, Duration: 30 day, Stop date: 12/04/17 8:56:00 CDT, FOR ICU USE ONLY Notes: WASTE: F/P - Sink; E - Municipal Trash Bin Start Date: 11/04/17 Stop Date: 11/09/17 Status: Discontinueddexamethasone 4 mg, 1 mL, Route: IVP, Drug form: INJ, Q6H, Dosing Weight 61.8, kg, Priority: STAT, Start date: 11/04/17 21:06:00 CDT, Duration: 30 day, Stop date: 12/04/17 16:00:00 CDT Notes: Concentration: 4mg/ml Start Date: 11/04/17 Stop Date: 11/04/17 Status: Discontinueddocusate 100 mg, 1 cap, Route: PO, Drug form: CAP, BID, Dosing Weight 62.727, kg, PRN Constipation, Start date: 11/04/17 7:55:00 CDT, Duration: 30 day, Stop date: 7:54:00 CDT Notes: (Same as: Colace) (Do Not Crush) Start Date: 11/04/17 Stop Date: 11/09/17 Status: Discontinuedenoxaparin 40 mg, 0.4 mL, Route: SUB-Q, Drug form: INJ, [id number], Dosing Weight 62.727, kg , Start date: 11/04/17 8:00:00 CDT, Duration: 30 day, Stop date: 12/02/17 10:00: 00 CDT Notes: (Same as: Lovenox) Start Date: 11/04/17 Stop Date: 11/09/17 Status: Discontinuedfamotidine 20 mg oral tablet 20 mg, 1 tab, Route: PO, Drug form: TAB, BID, Dosing Weight 61.8, kg, Start date : 11/04/17 9:00:00 CDT, Duration: 30 day, Stop date: 12/03/17 17:00:00 CDT Notes: (Same as: Pepcid) Start Date: 11/04/17 Stop Date: 11/09/17 Status: Discontinuedfolic acid 1 mg, 1 tab, Route: PO, Drug form: TAB, Daily, Dosing Weight 61.8, kg, Start date: 11/04/17 9:26:00 CDT, Duration: 5 day, Stop date: 11/09/17 9:00:00 CDT Notes: (Same as: Folvite) Start Date: 11/04/17 Stop Date: 11/09/17 Status: Completedfolic acid 1 mg, 1 tab, Route: PO, Drug form: TAB, Daily, Dosing Weight 61.8, kg, Priority : NOW, Start date: 11/09/17 9:57:00 CDT, Duration: 30 day, Stop date: 12/09/17 9 :00:00 CDT Notes: (Same as: Folvite) Start Date: 11/09/17 Stop Date: 11/09/17 Status: Discontinuedfolic acid 1 mg oral tablet 1 mg=1 tab, PO, Daily, # 30 tab, 0 Refill(s), Pharmacy: [facility]/pharmacy #[id number] Start Date: 11/09/17 Status: OrderedHaldol 2 mg, 0.4 mL, Route: IV, Drug form: INJ, ONCE, Dosing Weight 61.8, kg, Start date: 11/05/17 10:10:00CDT, Stop date: 11/05/17 10:10:00 CDT Notes: (Same as: Haldol) Start Date: 11/05/17 Stop Date: 11/05/17 Status: CompletedHaldol 2 mg, 0.4 mL, Route: IM, Drug form: INJ, ONCE, Dosing Weight 61.8, kg, Start date: 11/07/17 2:51:00 CDT, Stop date: 11/07/17 2:51:00 CDT Notes: (Same as: Haldol) Start Date: 11/07/17 Stop Date: 11/07/17 Status: CompletedHaldol 1 mg, 0.2 mL, Route: IVP, Drug form: INJ, Q8H, Dosing Weight 61.8, kg, PRN as needed for agitation, Start date: 11/07/17 13:37:00 CDT, Duration: 30 day, Stop date: 12/07/17 13:36:00 CDT Notes: (Same as: Haldol) Start Date: 11/07/17 Stop Date: 11/09/17 Status: Discontinuedhaloperidol 1 mg oral tablet 1 mg=1 tab, PO, BID, PRN Hallucinations, as needed for hallucination, # 14 tab, 0 Refill(s), Pharmacy: [facility]/pharmacy #[id number] Start Date: 11/09/17 Stop Date: 11/16/17 Status: OrderedKeppra 500 mg oral tablet 500 mg, 1 tab, Route: PO, Drug form: TAB, Q12H, Dosing Weight 61.8, kg, Start date: 11/04/17 21:00:00 CDT, Duration: 30 day, Stop date: 12/04/17 9:00:00 CDT Notes: (Same as:Keppra) Start Date: 11/04/17 Stop Date: 11/09/17 Status: Discontinuedlactulose 10 g/15 mL oral syrup 20 gm=30 mL, PO, TID, as needed for goal 2-3 BM daily, X 14 day, # 1260 mL, 0 Refill(s), Pharmacy: [facility]/pharmacy #[id number] Start Date: 11/09/17 Stop Date: 11/23/17 Status: Orderedlactulose 10 g/15 mL oral syrup 20 gm, 30 ml, Route: PO, Drug form: SYRP, TID, Dosing Weight 61.8, kg, Priority : NOW, Start date: 11/08/17 10:57:00 CDT, Duration: 30 day, Stop date: 12/08/17 9:00:00 CDT Notes: (Same as:Chronulac) Start Date: 11/08/17 Stop Date: 11/09/17 Status: DiscontinuedlevETIRAcetam 1,000 mg, 100 mL, Route: IVPB, Drug form: INJ, ONCE, Dosing Weight 59.091, kg, Priority: STAT, Startdate: 11/04/17 5:06:00 CDT, Stop date: 11/04/17 5:06:00 CDT Start Date: 11/04/17 Stop Date: 11/04/17 Status: CompletedLidocaine Viscous 2% mucous membrane solution 0.3 gm=15 mL, S&SPIT, Q3H, PRN Mouth Pain, X 14 day, # 100 mL, 0 Refill(s), Pharmacy: [facility]/pharmacy #[id number] Start Date: 11/09/17 Stop Date: 11/23/17 Status: OrderedLidocaine Viscous 2% mucous membrane solution 15 ml, Route: S&SPIT, Q3H, Drug form: SOLN, PRN Mouth Pain, Start date: 13:42:00 CDT, Duration: 30 day, Stop date: 12/07/17 13:41:00 CDT Notes: (Same as: Xylocaine) Start Date: 11/07/17 Stop Date: 11/09/17 Status: DiscontinuedLORazepam 2 mg, 1 mL, Route: IVP, Drug form: INJ, Q2H, Dosing Weight 61.8, kg, PRN Other - See Comment, CIWA Score 8 -14, Start date: 11/04/17 8:59:00 CDT, Duration: 30 day, Stop date: 12/04/17 8:58:00 CDT Notes: (Same as: Ativan) Start Date: 11/04/17 Stop Date: 11/09/17 Status: DiscontinuedLORazepam 4 mg, 2 mL, Route: IVP, Drug form: INJ, Q2H, Dosing Weight 61.8, kg, PRN Other - See Comment, CIWA Score 15-20, Start date: 11/04/17 8:59:00 CDT, Duration: 30 day, Stop date: 12/04/17 8:58:00 CDT Notes: (Same as: Ativan) Start Date: 11/04/17 Stop Date: 11/09/17 Status: DiscontinuedLORazepam 6 mg, 3 mL, Route: IVP, Drug form: INJ, Q2H, Dosing Weight 61.8, kg, PRN Other - See Comment, CIWA Score > 20, Start date: 11/04/17 8:59:00 CDT, Duration: 30 day, Stop date: 12/04/17 8:58:00 CDT Notes: (Same as: Ativan) Start Date: 11/04/17 Stop Date: 11/09/17 Status: DiscontinuedLORazepam 2 mg, 1 mL, Route: IVP, Drug form: INJ, ONCE, Dosing Weight 59.091, kg, Priority : STAT, Start date: 11/04/17 5:06:00 CDT, Stop date: 11/04/17 5:06:00 CDT Notes: (Same as: Ativan) Start Date: 11/04/17 Stop Date: 11/04/17 Status: Completedmagnesium oxide 800 mg, 2 tab, Route: PO, Drug form: TAB, PRN, Dosing Weight 61.8, kg, PRN Abnormal Lab Result, FOR ICU USE ONLY, Start date: 11/04/17 8:57:00 CDT, Duration: 30 day, Stop date: 12/04/17 8:56:00 CDT Notes: (Same as: Mag-Ox 400)Magnesium oxide 195eh=187if elemental magnesiumDose= ____mg magnesium oxide (___mg elemental magnesium) Start Date: 11/04/17 Stop Date: 11/09/17 Status: Discontinuedmagnesium sulfate 2 gm, 50 mL, Route: IVPB, Drug form: INJ, PRN, Dosing Weight 61.8, kg, PRN Abnormal Lab Result, Start date: 11/04/17 8:57:00 CDT, Duration: 30 day, Stop date: 12/04/17 8:56:00 CDT, FOR ICU USE ONLY Notes: WASTE: F/P - Sink; E - Municipal Trash Bin Start Date: 11/04/17 Stop Date: 11/09/17 Status: Discontinuedmultivitamin 1 tab, Route: PO, Drug Form: TAB, Dosing Weight 61.8, kg, Daily, Start date: 9:00:00 CDT, Duration: 5 day, Stop date: 11/08/17 9:00:00 CDT Notes: (Same as:Thera)WASTE: F/P - Black; E - Municipal Trash Bin Take with food. Start Date: 11/04/17 Stop Date: 11/08/17 Status: Completedmultivitamin with minerals 1 tab, PO, Daily, 0 Refill(s) Start Date: 11/09/17 Status: Orderedmultivitamin with minerals 1 tab, Route: PO, Drug Form: TAB, Dosing Weight 61.8, kg, Daily, NOW, Start date : 11/09/17 9:57:00 CDT, Duration: 30 day, Stop date: 12/09/17 9:00:00 CDT Notes: (Same as:Thera-M, Theragran-M)WASTE: F/P - Black; E - Municipal Trash Bin Give with food. Start Date: 11/09/17 Stop Date: 11/09/17 Status: DiscontinuedNS + KCL 20mEq/L 1000ml (Premix) 1,000 mL 1,000 mL, Rate: 100 ml/hr, Infuse over: 10 hr, Route: IV, Dosing Weight 61.8 kg , Total Volume: 1,000, Start date: 11/04/17 8:28:00 CDT, Duration: 1 day, Stop date: 11/05/17 8:27:00 CDT, 1.65, m2 Notes: PREMIX IV - Do Not AlterWASTE: F/P - Sink; E - Municipal Trash Bin Start Date: 11/04/17 Stop Date: 11/05/17 Status: Completednystatin topical 100,000 units/g powder 1 appl, Route: TOP, PRN, Drug form: PWDR, PRN For Fungal Prophylaxis, Start date : 11/04/17 8:57:00 CDT, Duration: 30 day, Stop date: 12/04/17 8:56:00 CDT Notes: (Same as:Mycostatin, Nilstat) For external use only. Start Date: 11/04/17 Stop Date: 11/09/17 Status: Discontinuedondansetron 4 mg, 2 mL, Route: IVP, Drug form: INJ, Q8H, Dosing Weight 61.8, kg, PRN Nausea & Vomiting, Start date: 11/06/17 14:21:00 CDT, Duration: 30 day, Stop date: 12/06/17 14:20:00 CDT Notes: (Same as: Zofran) MEDICATION WASTE Product Size: 4 mgProduct Wasted: ___ mg Start Date: 11/06/17 Stop Date: 11/09/17 Status: Discontinuedondansetron 4 mg, 2 mL, Route: IVP, Drug form: INJ, Q6H, Dosing Weight 62.727, kg, PRN Nausea & Vomiting, Start date: 11/04/17 7:55:00 CDT, Duration: 30 day, Stop date: 12/04/17 7:54:00 CDT Notes: (Same as: Zofran) MEDICATION WASTE Product Size: 4 mgProduct Wasted: ___ mg Start Date: 11/04/17 Stop Date: 11/06/17 Status: Discontinuedpotassium chloride 20 mEq, 100 mL, Route: IVPB, Drug form: INJ, PRN, Dosing Weight 61.8, kg, PRN Abnormal Lab Result, Via central line, Start date: 11/04/17 8:57:00 CDT, Duration: 30 day, Stop date: 12/04/17 8:56:00 CDT,FOR ICU USE ONLY Notes: (Same as: KCL) Infuse no faster than 10 mEq/hr if given peripherally. Start Date: 11/04/17 Stop Date: 11/09/17 Status: Discontinuedpotassium chloride 20 mEq, 15 mL, Route: NJ, Drug form: LIQ, PRN, Dosing Weight 61.8, kg, PRN Abnormal Lab Result, Start date: 11/04/17 8:57:00 CDT, Duration: 30 day, Stop date: 12/04/17 8:56:00 CDT, FOR ICU USE ONLY Notes: (Same as: Potassium Chloride) Start Date: 11/04/17 Stop Date: 11/09/17 Status: Discontinuedpotassium chloride 20 mEq, 1 tab, Route: PO, Drug form: ERTAB, PRN, Dosing Weight 61.8, kg, PRN Abnormal Lab Result, Start date: 11/04/17 8:57:00 CDT, Duration: 30 day, Stop date: 12/04/17 8:56:00 CDT, FOR ICU USE ONLY Notes: (Same as: K-Dur 20)"Do Not Crush"For patients unable to swallow tablet, dissolve in one half glass of water. Allow about 2 minutes for the tablets to disintegrate. Stir before giving to prepare slurry and administer.Please exclude Patients with feeding tube less than 14 [place] (Dobhoff, J-tube etc) and pediatric and patients. With food and full glass of water Start Date: 11/04/17 Stop Date: 11/09/17 Status: Discontinuedpotassium chloride 10 mEq, 100 mL, Route: IVPB, Drug form: INJ, PRN, Dosing Weight 61.8, kg, PRN Abnormal Lab Result, Via peripheral line, Start date: 11/04/17 8:57:00 CDT, Duration: 30 day, Stop date: 12/04/17 8:56:00 CDT, FOR ICU USE ONLY Notes: Infuse at a rate of 10 mEq/hr.(Same as: KCL) Start Date: 11/04/17 Stop Date: 11/09/17 Status: Discontinuedpotassium phosphate + Sodium Chloride 0.9% IV 250 mL 15 mmol, 5 mL, Route: IVPB, PRN, Dosing Weight 61.8, kg, PRN Abnormal Lab Result , Start date: 11/04/17 8:57:00 CDT, Duration: 30 day, Stop date: 12/04/17 8:56: 00 CDT, FOR ICU USE ONLY Notes: (Same as: K Phosphate.) 1 mMol phoshate has 1.47 mEq potassium Infuse over 4 hours Start Date: 11/04/17 Stop Date: 11/09/17 Status: Discontinuedpotassium phosphate + Sodium Chloride 0.9% IV 250 mL 45 mmol, 15 mL, Route: IVPB, PRN, Dosing Weight 61.8, kg, PRN Abnormal Lab Result, Start date: 11/04/17 8:57:00 CDT, Duration: 30 day, Stop date: 12/04/17 8:56:00 CDT, FOR ICU USE ONLY Notes: (Same as: K Phosphate.) 1 mMol phoshate has 1.47 mEq potassium Infuse over 4 hours Start Date: 11/04/17 Stop Date: 11/09/17 Status: Discontinuedpotassium phosphate + Sodium Chloride 0.9% IV 250 mL 30 mmol, 10 mL, Route: IVPB, PRN, Dosing Weight 61.8, kg, PRN Abnormal Lab Result, Start date: 11/04/17 8:57:00 CDT, Duration: 30 day, Stop date: 12/04/17 8:56:00 CDT, FOR ICU USE ONLY Notes: (Same as: K Phosphate.) 1 mMol phoshate has 1.47 mEq potassium Infuse over 4 hours Start Date: 11/04/17 Stop Date: 11/09/17 Status: Discontinuedpotassium phosphate-sodium phosphate 250 mg-280 mg-160 mg oral powder for reconstitution 2 pkt, Route: PO, Drug Form: PDR/REC, Dosing Weight 61.8, kg, PRN, PRN Abnormal Lab Result, FOR ICU USE ONLY, Start date: 11/04/17 8:57:00 CDT, Duration: 30 day , Stop date: 12/04/17 8:56:00 CDT Notes: (Same as: Phos-NaK) Each 1.5 gm pkt has 250mg phosphorous. Mix w/2.5oz water and stir. Start Date: 11/04/17 Stop Date: 11/09/17 Status: DiscontinuedQUEtiapine 25 mg oral tablet 50 mg=2 tab, PO, TID, # 84 tab, 0 Refill(s), Pharmacy: [facility]/pharmacy #[id number] Start Date: 11/09/17 Stop Date: 11/23/17 Status: OrderedSaline Flush 0.9% 10 ml, Route: IVP, Drug Form: INJ, Dosing Weight 61.8, kg, Q12H, Start date: 9:00:00 CDT, Duration: 30 day, Stop date: 12/03/17 21:00:00 CDT Notes: (Same as: BD Posiflush) Start Date: 11/04/17 Stop Date: 11/09/17 Status: DiscontinuedSaline Flush 0.9% 10 ml, Route: IVP, Drug Form: INJ, Dosing Weight 61.8, kg, PRN, PRN Line Flush, Start date: 188:57:00 CDT, Duration: 30 day, Stop date: 12/04/17 8:56:00 CDT Notes: (Same as: BD Posiflush) Start Date: 11/04/17 Stop Date: 11/09/17 Status: DiscontinuedSaline Flush 0.9% 10 mL, Route: IVP, Drug Form: INJ, Dosing Weight 59.091, kg, PRN, PRN Line Flush , Start date: 11/04/17 5:06:00 CDT, Duration: 30 day, Stop date: 12/04/17 5:05: 00 CDT Notes: (Same as: BD Posiflush) Start Date: 11/04/17 Stop Date: 11/04/17 Status: DiscontinuedSEROquel 50 mg, 2 tab, Route: PO, Drug form: TAB, ONCE, Dosing Weight 61.8, kg, Priority : STAT, Start date: 11/06/17 23:29:00 CDT, Stop date: 11/06/17 23:29:00 CDT Notes: (Same as: SEROquel) Start Date: 11/06/17 Stop Date: 11/06/17 Status: CompletedSEROquel 50 mg, 2 tab, Route: PO, Drug form: TAB, TID, Dosing Weight 61.8, kg, Start date : 11/05/17 11:00:00 CDT, Duration: 30 day, Stop date: 12/04/17 17:00:00 CDT Notes: (Same as: SEROquel) Start Date: 11/05/17 Stop Date: 11/09/17 Status: DiscontinuedSodium Chloride 0.9% (Bolus) IV 1,000 mL, 1,000 ml/hr, Infuse Over: 1 hr, Route: IV, 1,000, Drug form: INJ, ONCE , Priority: STAT, Dosing Weight 59.091 kg, Start date: 11/04/17 5:06:00 CDT, Stop date: 11/04/17 5:06:00 CDT Start Date: 11/04/17 Stop Date: 11/04/17 Status: Completedsodium phosphate + Sodium Chloride 0.9% IV 250 mL 30 mmol, 10 mL, Route: IVPB, PRN, Dosing Weight 61.8, kg, PRN Abnormal Lab Result, Start date: 11/04/17 8:57:00 CDT, Duration: 30 day, Stop date: 12/04/17 8:56:00 CDT, FOR ICU USE ONLY Start Date: 11/04/17 Stop Date: 11/09/17 Status: Discontinuedsodium phosphate + Sodium Chloride 0.9% IV 250 mL 45 mmol, 15 mL, Route: IVPB, PRN, Dosing Weight 61.8, kg, PRN Abnormal Lab Result, Start date: 11/04/17 8:57:00 CDT, Duration: 30 day, Stop date: 12/04/17 8:56:00 CDT, FOR ICU USE ONLY Start Date: 11/04/17 Stop Date: 11/09/17 Status: Discontinuedsodium phosphate + Sodium Chloride 0.9% IV 250 mL 15 mmol, 5 mL, Route: IVPB, PRN, Dosing Weight 61.8, kg, PRN Abnormal Lab Result , Start date: 11/04/17 8:57:00 CDT, Duration: 30 day, Stop date: 12/04/17 8:56: 00 CDT, FOR ICU USE ONLY Start Date: 11/04/17 Stop Date: 11/09/17 Status: Discontinuedthiamine 100 mg, 1 tab, Route: PO, Drug form: TAB, Daily, Dosing Weight 61.8, kg, Start date: 11/04/17 9:00:00 CDT, Duration: 5 day, Stop date: 11/08/17 9:00:00 CDT Notes: (Same As: Vitamin B1) Start Date: 11/04/17 Stop Date: 11/08/17 Status: Completedthiamine 100 mg, 1 tab, Route: PO, Drug form: TAB, Daily, Dosing Weight 61.8, kg, Priority: NOW, Start date: 11/09/17 9:57:00 CDT, Duration: 30 day, Stop date: 9:00:00 CDT Notes: (Same As: Vitamin B1) Start Date: 11/09/17 Stop Date: 11/09/17 Status: Discontinuedthiamine 100 mg oral tablet 100 mg=1 tab, PO, Daily, X 30 day, # 30 tab, 0 Refill(s), Pharmacy: [facility]/ pharmacy #[id number] Start Date: 11/09/17 Stop Date: 12/09/17 Status: Orderedtramadol 50 mg oral tablet 50 mg, 1 tab, Route: PO, Drug form: TAB, Q6H, Dosing Weight 61.8, kg, PRN Pain Score 4-6, Start date: 11/07/17 11:15:00 CDT, Duration: 30 day, Stop date: 12/07 11:14:00 CDT Notes: Not to exceed 400mg/day. (Same As: Ultram) Start Date: 11/07/17 Stop Date: 11/09/17 Status: Discontinuedtramadol 50 mg oral tablet 50 mg=1 tab, PO, Q6H, PRN Pain, X 10 day, # 40 tab, 0 Refill(s) Start Date: 11/09/17 Stop Date: 11/19/17 Status: Ordered Results ELECTROLYTES Most recent to oldest 1 2 3 [Reference Range]: Sodium Lvl [135-145 mEq/L] 138 mEq/L 138 mEq/L 142 mEq/L (11/08/17 6:33 AM) (11/07/17 4:02 AM) (11/06/17 5:33 AM) Potassium Lvl [3.5-5.1 3.7 mEq/L 4.4 mEq/L 3.9 mEq/L mEq/L] (11/08/17 6:33 AM) (11/07/17 4:02 AM) (11/06/17 5:33 AM) Chloride Lvl [95-109 mEq/L] 102 mEq/L 106 mEq/L 109 mEq/L (11/08/17 6:33 AM) (11/07/17 4:02 AM) (11/06/17 5:33 AM) CO2 [24-32 mEq/L] 28 mEq/L 21 mEq/L 21 mEq/L (11/08/17 6:33 AM) *LOW* *LOW* (11/07/17 4:02 AM) (11/06/17 5:33 AM) AGAP [10.0-20.0 mEq/L] 11.7 mEq/L 15.4 mEq/L 15.9 mEq/L (11/08/17 6:33 AM) (11/07/17 4:02 AM) (11/06/17 5:33 AM) CHEM PANEL Most recent to oldest 1 2 3 [Reference Range]: Creatinine Lvl [0.50-1.40 0.40 mg/dL 0.48 mg/dL 0.40 mg/dL mg/dL] *LOW* *LOW* *LOW* (11/08/17 6:33 AM) (11/07/17 4:02 AM) (11/06/17 5:33 AM) eGFR 133 mL/min/1.73m2 1 125 mL/min/1.73m2 2 132 mL/min/1.73m2 3 *NA* *NA* *NA* (11/08/17 6:33 AM) (11/07/17 4:02 AM) (11/06/17 5:33 AM) BUN [7-22 mg/dL] 2 mg/dL 2 mg/dL 3 mg/dL *LOW* *LOW* *LOW* (11/08/17 6:33 AM) (11/07/17 4:02 AM) (11/06/17 5:33 AM) B/C Ratio [6-25] 5 8 4 *LOW* (11/06/17 5:33 AM) *LOW* (11/08/17 6:33 AM) (11/05/17 4:33 AM) Glucose Lvl [70-99 mg/dL] 96 mg/dL 87 mg/dL 78 mg/dL (11/08/17 6:33 AM) (11/07/17 4:02 AM) (11/06/17 5:33 AM) Total Protein [6.4-8.4 7.5 g/dL 7.7 g/dL 7.0 g/dL g/dL] (11/09/17 4:04 AM) (11/08/17 6:33 AM) (11/06/17 5:33 AM) Albumin Lvl [3.5-5.0 g/dL] 3.4 g/dL 3.4 g/dL 3.2 g/dL *LOW* *LOW* *LOW* (11/09/17 4:04 AM) (11/08/17 6:33 AM) (11/06/17 5:33 AM) Globulin [2.7-4.2 g/dL] 4.1 g/dL 4.3 g/dL 3.8 g/dL (11/09/17 4:04 AM) *HI* (11/06/17 5:33 AM) (11/08/17 6:33 AM) A/G Ratio [0.7-1.6] 0.8 0.8 0.8 (11/09/17 4:04 AM) (11/08/17 6:33 AM) (11/06/17 5:33 AM) Calcium Lvl [8.5-10.5 9.4 mg/dL 10.3 mg/dL 8.3 mg/dL mg/dL] (11/08/17 6:33 AM) (11/07/17 4:02 AM) *LOW* (11/06/17 5:33 AM) Phosphorus [2.5-4.5 mg/dL] 3.1 mg/dL 2.0 mg/dL 2.2 mg/dL (11/07/17 4:02 AM) *LOW* *LOW* (11/06/17 5:33 AM) (11/05/17 4:33 AM) Magnesium Lvl [1.8-2.4 2.3 mg/dL 2.5 mg/dL 1.5 mg/dL mg/dL] (11/06/17 5:33 AM) *HI* *LOW* (11/05/17 4:33 AM) (11/04/17 5:19 AM) ALT [0-65 unit/L] 32 unit/L 33 unit/L 32 unit/L (11/09/17 4:04 AM) (11/08/17 6:33 AM) (11/06/17 5:33 AM) AST [0-37 unit/L] 184 unit/L 179 unit/L 292 unit/L *HI* *HI* *HI* (11/09/17 4:04 AM) (11/08/17 6:33 AM) (11/06/17 5:33 AM) Alk Phos [39-136 unit/L] 163 unit/L 174 unit/L 148 unit/L *HI* *HI* *HI* (11/09/17 4:04 AM) (11/08/17 6:33 AM) (11/06/17 5:33 AM) Bili Total [0.2-1.3 mg/dL] 2.6 mg/dL 3.2 mg/dL 2.7 mg/dL *HI* *HI* *HI* (11/09/17 4:04 AM) (11/08/17 6:33 AM) (11/06/17 5:33 AM) Bili Direct [0.0-0.3 mg/dL] 1.8 mg/dL *HI* (11/09/17 4:04 AM) Bili Indirect [0.0-1.0 0.8 mg/dL mg/dL] (11/09/17 4:04 AM) Lipase Lvl [73-393 unit/L] 156 unit/L (11/04/17 5:19 AM) Ammonia [<=45.0 uMol/L] 32.0 uMol/L 63.0 uMol/L (11/09/17 4:04 AM) *HI* (11/08/17 6:33 AM) 1Result Comment: The eGFR is calculated [...] young, healthy individualsthe eGFR will be >90 mL/min/1.73m2. [...] young, healthy individualsthe eGFR will be >90 mL/min/1.73m2. [...] eGFR should be multiplied by the estimated BMI.DRUG SCREEN Most recent to oldest [Reference Range]: 1 2 3 U Amph Scr [Negative] Negative *NA* (11/04/17 9:35 PM) U Gema Scr [Negative] Negative *NA* (11/04/17 9:35 PM) U Benzodia Scr [Negative] Negative *NA* (11/04/17 9:35 PM) U Cocaine Scr [Negative] Negative *NA* (11/04/17 9:35 PM) U Opiate Scr [Negative] Negative *NA* (11/04/17 9:35 PM) U Phencyc Scr [Negative] Negative *NA* (11/04/17 9:35 PM) U Cannab Scr [Negative] Negative *NA* (11/04/17 9:35 PM) UDS Note See Note *NA* (11/04/17 9:35 PM) ENDOCRINOLOGY Most recent to oldest [Reference Range]: 1 2 3 S Preg [Negative] Negative *NA* (11/04/17 5:19 AM) URINE AND STOOL Most recent to oldest [Reference Range]: 1 2 3 UA Turbidity [Clear] Clear Marked (11/04/17 1:31 PM) *ABN* (11/04/17 5:19 AM) UA Color [Yellow] Yellow Pamela *NA* *ABN* (11/04/17 1:31 PM) (11/04/17 5:19 AM) UA pH [5.0-8.0] 7.0 6.0 (11/04/17 1:31 PM) (11/04/17 5:19 AM) UA Spec Grav [<=1.030] 1.009 1.014 (11/04/17 1:31 PM) (11/04/17 5:19 AM) UA Glucose [Negative mg/dL] Negative mg/dL Negative mg/dL *NA* *NA* (11/04/17 1:31 PM) (11/04/17 5:19 AM) UA Blood [Negative] Negative Negative (11/04/17 1:31 PM) (11/04/17 5:19 AM) UA Ketones [Negative mg/dL] Negative mg/dL Trace mg/dL *NA* *ABN* (11/04/17 1:31 PM) (11/04/17 5:19 AM) UA Protein [Negative mg/dL] Negative mg/dL 100 mg/dL (11/04/17 1:31 PM) *ABN* (11/04/17 5:19 AM) UA Urobilinogen [0.1-1.0 mg/dL] <=1.0 mg/dL 4.0 mg/dL *NA* *HI* (11/04/17 1:31 PM) (11/04/17 5:19 AM) UA Bili [Negative] Negative Negative *NA* *NA* (11/04/17 1:31 PM) (11/04/17 5:19 AM) UA Leuk Est [Negative] Negative Moderate (11/04/17 1:31 PM) *ABN* (11/04/17 5:19 AM) UA Nitrite [Negative] Negative Negative (11/04/17 1:31 PM) (11/04/17 5:19 AM) UA WBC [0-5 /HPF] 6 /HPF 31 /HPF *HI* *HI* (11/04/17 1:31 PM) (11/04/17 5:19 AM) UA RBC [0-2 /HPF] <1 /HPF (11/04/17 1:31 PM) UA Bacteria [None Seen /HPF] Occasional /HPF Many /HPF *NA* *ABN* (11/04/17 1:31 PM) (11/04/17 5:19 AM) UA Sq Epi [Few /LPF] Many /LPF Many /LPF *ABN* *ABN* (11/04/17 1:31 PM) (11/04/17 5:19 AM) UA Mucus [None Seen /LPF] Few /LPF Moderate /LPF *NA* *ABN* (11/04/17 1:31 PM) (11/04/17 5:19 AM) HEMATOLOGY Most recent to oldest 1 2 3 [Reference Range]: WBC [3.7-10.4 K/CMM] 10.4 K/CMM 9.9 K/CMM 9.8 K/CMM (11/08/17 6:33 AM) (11/05/17 4:33 AM) (11/04/17 5:19 AM) RBC [4.20-5.40 M/CMM] 3.15 M/CMM 3.00 M/CMM 3.24 M/CMM *LOW* *LOW* *LOW* (11/08/17 6:33 AM) (11/05/17 4:33 AM) (11/04/17 5:19 AM) Hgb [12.0-16.0 g/dL] 12.0 g/dL 11.4 g/dL 12.4 g/dL (11/08/17 6:33 AM) *LOW* (11/04/17 5:19 AM) (11/05/17 4:33 AM) Hct [36.0-48.0 %] 35.0 % 33.6 % 35.8 % *LOW* *LOW* *LOW* (11/08/17 6:33 AM) (11/05/17 4:33 AM) (11/04/17 5:19 AM) MCV [80.0-98.0 fL] 111.1 fL 111.8 fL 110.3 fL *HI* *HI* *HI* (11/08/17 6:33 AM) (11/05/17 4:33 AM) (11/04/17:19 AM) MCH [27.0-31.0 pg] 38.2 pg 37.8 pg 38.1 pg *HI* *HI* *HI* (11/08/17 6:33 AM) (11/05/17 4:33 AM) (11/04/17:19 AM) MCHC [32.0-36.0 g/dL] 34.4 g/dL 33.8 g/dL 34.6 g/dL (11/08/17 6:33 AM) (11/05/17 4:33 AM) (11/04/17:19 AM) RDW [11.5-14.5 %] 15.6 % 15.7 % 15.8 % *HI* *HI* *HI* (11/08/17 6:33 AM) (11/05/17 4:33 AM) (11/04/17:19 AM) MPV [7.4-10.4 fL] 8.6 fL 9.3 fL 8.3 fL (11/08/17 6:33 AM) (11/05/17 4:33 AM) (11/04/17:19 AM) Platelet [133-450 K/CMM] 248 K/CMM 142 K/CMM 156 K/CMM (11/08/17 6:33 AM) (11/05/17 4:33 AM) (11/04/17:19 AM) Segs [45.0-75.0 %] 71.0 % 92.9 % 85.0 % (11/08/17 6:33 AM) *HI* *HI* (11/05/17 4:33 AM) (11/04/17:19 AM) Lymphocytes [20.0-40.0 %] 10.3 % 3.9 % 7.6 % *LOW* *LOW* *LOW* (11/08/17 6:33 AM) (11/05/17 4:33 AM) (6/19/18 5:19 AM) Monocytes [2.0-12.0 %] 17.0 % 3.0 % 6.4 % *HI* (11/05/17 4:33 AM) (11/04/17 5:19 AM) (11/08/17 6:33 AM) Eosinophils [0.0-4.0 %] 0.7 % 0.1 % (11/08/17 6:33 AM) (11/04/17 5:19 AM) Basophils [0.0-1.0 %] 1.0 % 0.2 % 0.9 % (11/08/17 6:33 AM) (11/05/17 4:33 AM) (11/04/17 5:19 AM) Segs-Bands # [1.5-8.1 K/CMM] 7.4 K/CMM 9.2 K/CMM 8.3 K/CMM (11/08/17 6:33 AM) *HI* *HI* (11/05/17 4:33 AM) (11/04/17 5:19 AM) Lymphocytes # [1.0-5.5 1.1 K/CMM 0.4 K/CMM 0.7 K/CMM K/CMM] (11/08/17 6:33 AM) *LOW* *LOW* (11/05/17 4:33 AM) (11/04/17 5:19 AM) Monocytes # [0.0-0.8 K/CMM] 1.8 K/CMM 0.3 K/CMM 0.6 K/CMM *HI* (11/05/17 4:33 AM) (11/04/17 5:19 AM) (11/08/17 6:33 AM) Eosinophils # [0.0-0.5 0.1 K/CMM K/CMM] (11/08/17 6:33 AM) Basophils # [0.0-0.2 K/CMM] 0.1 K/CMM 0.1 K/CMM (11/08/17 6:33 AM) (11/04/17 5:19 AM) Macrocyte [None Seen] 3+ 3+ 3+ *NA* *NA* *NA* (11/08/17 6:33 AM) (11/05/17 4:33 AM) (11/04/17 5:19 AM) Plt Morph Normal Normal (11/08/17 6:33 AM) (11/05/17 4:33 AM) BACTERIAL - SEROLOGY Most recent to oldest [Reference Range]: 1 2 3 MRSA by PCR Negative (11/04/17 10:42 AM) Microbiology Reports TEST:Culture: Urine STATUS:Auth (Verified) BODY SITE: SOURCE:Urine, Clean Catch COLLECTED DATE/TIME:11/04/17 5:19 AMFINAL REPORT<10,000 CFU/mL Skin Chio Immunizations Not Given Vaccine Date Status Refusal [...] No entered on: 11/04/17 Assessment and Plan Extracted from: Title: Progress Note Author: Farheen Gonzales MD Date: 11/08/17 Alcohol [...] Lovenox for DVT prophylaxis. PT evaluation 11. [facility] consult for depression Disposition. Possible discharge tomorrow if mental status is improved. Discussed plan with . Extracted from: Title: Consult Note Author: Leonard Noguera DO Date: [...]
--- OUTSIDE RECORDS SUMMARY | 2018-11-28 11:01 | XMS REPORT | Summary of Care ---
:1980 Author Organization [facility] Address [address] [place] [address]- Encounter [facility]) [id number] Date(s): 08/22/17 - 08/23/[address] [address]- [phone] Encounter Diagnosis Syncope and collapse (Final) - 08/31/17 Excessive and frequent menstruation with irregular cycle (Final) - Lower abdominal pain, unspecified (Final) - Alcohol abuse with intoxication, unspecified (Final) - Anxiety disorder, unspecified (Final) - Contusion of right forearm, initial encounter (Final) - Contusion of right lower leg, initial encounter (Final) - Endometriosis, unspecified (Final) - Acidosis (Final) - Dysmenorrhea, unspecified (Final) - Fibromyalgia (Final) - Long QT syndrome (Final) - Discharge Disposition: Home or Self Care Attending Physician: Va Sim MD Admitting Physician: Va Sim MD Vital Signs Most recent to oldest [Reference 1 2 3 Range]: Height 149.86 cm 149.86 cm (08/23/17 1:22 AM) (08/22/17 8:56 PM) Temperature Oral [96.4-99.1 DegF] 98.3 DegF 98.5 DegF 98.1 DegF (08/23/17 11:12 AM) (08/23/17 7:32 AM) (08/23/17 4:13 AM) Blood Pressure [90-140/60-90 129/96 mmHg 133/88 mmHg 132/86 mmHg mmHg] (08/23/17 11:12 AM) (08/23/17 7:32 AM) (08/23/17 4:13 AM) Respiratory Rate [14-20 BRMIN] 18 BRMIN 16 BRMIN 18 BRMIN (08/23/17 11:12 AM) (08/23/17 7:32 AM) (08/23/17 4:13 AM) Peripheral Pulse Rate [60-100 96 bpm 88 bpm 79 bpm bpm] (08/23/17 11:12 AM) (08/23/17 7:32 AM) (08/23/17 4:13 AM) Weight 59.091 kg 61.364 kg (08/23/17 1:22 AM) (08/22/17 8:56 PM) Body Mass Index 26.31 m2 27.32 m2 (08/23/17 1:22 AM) (08/22/17 8:56 PM) Problem List Condition Effective Dates Status Health Status Informant Fibromyalgia(Confirmed) Active Endometrial ca(Confirmed) Active Allergies, Adverse Reactions, Alerts Substance Reaction Severity Status NKDA Active Medications acetaminophen/butalbital/caffeine/codeine 325 mg-50 mg-40 mg-30 mg oral capsule 1 cap, Route: PO, Drug Form: CAP, Dosing Weight 59.091, kg, Q4H, PRN Headache 6- 10, Start date: 08/23/17 3:20:00 CDT, Duration: 30 day, Stop date: 09/22/17 3:19 :00 CDT Start Date: 08/23/17 Stop Date: 08/23/17 Status: DeletedAPAP/butalbital/caffeine 1 tab, Route: PO, Drug Form: TAB, Q4H, PRN Headache 6-10, Start date: 08/23/17 3 :32:00 CDT, Duration: 30 day, Stop date: 09/22/17 3:31:00 CDT Start Date: 08/23/17 Stop Date: 08/23/17 Status: DiscontinuedBD Normal Saline Flush 25 mL, Route: IV, Drug Form: INJ, PRN, PRN Line Flush, Start date: 08/22/17 23: 48:00 CDT, Duration: 30 day, Stop date: 09/21/17 23:47:00 CDT Notes: (Same as: BD Posiflush) Start Date: 08/22/17 Stop Date: 08/23/17 Status: DiscontinuedBD Normal Saline Flush 10 mL, Route: IV, Drug Form: INJ, PRN, PRN Line Flush, Start date: 08/22/17 23: 48:00 CDT, Duration: 30 day, Stop date: 09/21/17 23:47:00 CDT Notes: (Same as: BD Posiflush) Start Date: 08/22/17 Stop Date: 08/23/17 Status: DiscontinuedcloNIDine 0.1 mg, 1 tab, Route: PO, Drug form: TAB, Q4H, Dosing Weight 61.364, kg, PRN Hypertension, Start date: 08/23/17 1:05:00 CDT, Duration: 30 day, Stop date: 12/03 1:04:00 CDT Notes: (Same As: Catapres) Start Date: 08/23/17 Stop Date: 08/23/17 Status: Discontinuedcodeine sulfate 30 mg, 1 tab, Route: PO, Drug form: TAB, Q4H, PRN Headache 6-10, Start date: 12/03 3:33:00 CDT, Duration: 30 day, Stop date: 09/22/17 3:32:00 CDT Start Date: 08/23/17 Stop Date: 08/23/17 Status: DiscontinuedDextrose 50% Syringe 25 gm, Route: IVP, Dosing Weight 61.364, kg, ONCE, STAT, Start date: 08/23/17 0: 15:00 CDT, Stop date: 08/23/17 0:15:00 CDT Start Date: 08/23/17 Stop Date: 08/23/17 Status: Completedfamotidine 20 mg oral tablet 20 mg, 1 tab, Route: PO, Drug form: TAB, BID, Dosing Weight 59.091, kg, Start date: 08/23/17 9:00:00CDT, Duration: 30 day, Stop date: 09/21/17 17:00:00 CDT Notes: (Same as: Pepcid) Start Date: 08/23/17 Stop Date: 08/23/17 Status: Discontinuedfamotidine 20 mg oral tablet 20 mg=1 tab, PO, BID, 0 Refill(s) Start Date: 08/23/17 Status: OrderedFioricet with Codeine 50 mg-300 mg-40 mg-30 mg oral capsule 1 cap, PO, Q4H, PRN Headache 6-10, 0 Refill(s) Start Date: 08/23/17 Status: Orderedfolic acid 1 mg, 1 tab, Route: PO, Drug form: TAB, Daily, Dosing Weight 61.364, kg, Start date: 08/23/17 9:00:00 CDT, Duration: 5 day, Stop date: 08/27/17 9:00:00 CDT Notes: (Same as: Folvite) Start Date: 08/23/17 Stop Date: 08/23/17 Status: DiscontinuedKeppra 500 mg oral tablet 500 mg, 1 tab, Route: PO, Drug form: TAB, Q12H, Dosing Weight 59.091, kg, Start date: 08/23/17 9:00:00 CDT, Duration: 30 day, Stop date: 09/21/17 21:00:00 CDT Notes: (Same as:Keppra) Start Date: 08/23/17 Stop Date: 08/23/17 Status: DiscontinuedKeppra 500 mg oral tablet 500 mg=1 tab, PO, Q12H, 0 Refill(s) Start Date: 08/23/17 Status: OrderedLORazepam 2 mg, 1 mL, Route: IVP, Drug form: INJ, Q2H, Dosing Weight 61.364, kg, PRN Withdrawal, Start date: 08/23/17 1:05:00 CDT, Duration: 30 day, Stop date: 09/22 1:04:00 CDT Notes: (Same as: Ativan) Start Date: 08/23/17 Stop Date: 08/23/17 Status: Discontinuedmefenamic acid 250 mg oral capsule 250 mg=1 cap, PO, Q6H, PRN for menstrual pain, X 7 day, # 30 cap, 0 Refill(s), Pharmacy: [facility]/pharmacy #[id number] Start Date: 08/23/17 Stop Date: 08/30/17 Status: Completedmorphine Sulfate 2 mg, 1 mL, Route: IVP, Drug form: SOLN, ONCE, Start date: 08/23/17 2:00:00 CDT , Stop date: 182:00:00 CDT Start Date: 08/23/17 Stop Date: 08/23/17 Status: Completedmorphine Sulfate 2 mg, Route: IVP, ONCE, Dosing Weight 61.364, kg, Priority: STAT, Start date: 23:30:00 CDT,Stop date: 08/22/17 23:30:00 CDT Start Date: 08/22/17 Stop Date: 08/22/17 Status: Completedmorphine Sulfate 6 mg, 3 mL, Route: PO, Drug form: SOLN, Q4H, PRN Pain Score 7-10, Start date: 0:57:00 CDT, Duration: 30 day, Stop date: 09/22/17 0:56:00 CDT Notes: (Same as:MORPhine Sulfate) Start Date: 08/23/17 Stop Date: 08/23/17 Status: Discontinuedmorphine Sulfate 4 mg, 1 mL, Route: IVP, Drug form: SOLN, ONCE, Dosing Weight 61.364, kg, Priority: STAT, Start date:08/22/17 21:14:00 CDT, Stop date: 08/22/17 21:14:00 CDT Notes: (Same as:MORPhine Sulfate) Start Date: 08/22/17 Stop Date: 08/22/17 Status: Completedmorphine Sulfate 2 mg, 1 mL, Route: INJ, Drug form: SOLN, Q4H, PRN Pain Score 7-10, Start date: 08/23/17 6:19:00 CDT,Duration: 30 day, Stop date: 09/22/17 6:18:00 CDT Start Date: 08/23/17 Stop Date: 08/23/17 Status: Discontinuedmorphine Sulfate 2 mg, Route: IVP, Q4H, Dosing Weight 61.364, kg, PRN Pain Score 7-10, Start date : 08/23/17 0:54:00 CDT, Duration: 30 day, Stop date: 09/22/17 0:53:00 CDT Start Date: 08/23/17 Stop Date: 08/23/17 Status: Deletedmultivitamin 1 tab, Route: PO, Drug Form: TAB, Dosing Weight 61.364, kg, Breakfast, Start date: 08/23/17 8:00:00 CDT, Duration: 5 day, Stop date: 08/27/17 8:00:00 CDT Start Date: 08/23/17 Stop Date: 08/23/17 Status: DiscontinuedNS (Bolus) IV 500 mL, 500 ml/hr, Infuse Over: 1 hr, Route: IV, 500, Drug form: INJ, ONCE, Priority: STAT, Dosing Weight 59.091 kg, Start date: 08/23/17 9:17:00 CDT, Stop date: 08/23/17 9:17:00 CDT Start Date: 08/23/17 Stop Date: 08/23/17 Status: CompletedNS (Bolus) IV 1,000 mL, 1,000 ml/hr, Infuse Over: 1 hr, Route: IV, 1,000, Drug form: INJ, ONCE , Priority: STAT, Dosing Weight 61.364 kg, Start date: 08/22/17 21:49:00 CDT, Stop date: 08/22/17 21:49:00 CDT Start Date: 08/22/17 Stop Date: 08/22/17 Status: CompletedPepcid 20 mg, Route: IV, ONCE, Dosing Weight 61.364, kg, Start date: 08/22/17 23:58:00 CDT, Stop date: 08/22/17 23:58:00 CDT, Start Date: 08/22/17 Stop Date: 08/23/17 Status: CompletedPhenergan + Sodium Chloride 0.9% IV 50 mL 25 mg, 1 mL, Route: IVPB, ONCE, Dosing Weight 61.364, kg, Start date: 08/23/17 1 :19:00 CDT, Stop date: 08/23/17 1:19:00 CDT Notes: Do not give IV push. (Same as: Phenergan) Start Date: 08/23/17 Stop Date: 08/23/17 Status: Completedpotassium chloride 20 mEq, Route: PO, Drug form: ERTAB, ONCE, Dosing Weight 61.364, kg, Priority: STAT, Start date: 08/22/17 23:19:00 CDT, Stop date: 08/22/17 23:19:00 CDT Start Date: 08/22/17 Stop Date: 08/22/17 Status: Completedpotassium chloride 40 mEq, 2 tab, Route: PO, Drug form: ERTAB, Daily, Dosing Weight 59.091, kg, Start date: 08/23/17 9:08:00 CDT, Duration: 30 day, Stop date: 09/22/17 9:00:00 CDT Notes: (Same as: K-Dur 20)"Do Not Crush"For patients unable to swallow tablet, dissolve in one half glass of water. Allow about 2 minutes for the tablets to disintegrate. Stir before giving to prepare slurry and administer.Please exclude Patients with feeding tube less than 14 [place] (Dobhoff, J-tube etc) and pediatric and patients. With food and full glass of water Start Date: 08/23/17 Stop Date: 08/23/17 Status: DiscontinuedSaline Flush 0.9% 10 ml, Route: IVP, Drug Form: INJ, Dosing Weight 61.364, kg, PRN, PRN Line Flush , Start date: 08/23/17 0:03:00 CDT, Duration: 30 day, Stop date: 09/22/17 0:02: 00 CDT Start Date: 08/23/17 Stop Date: 08/23/17 Status: DiscontinuedSaline Flush 0.9% 10 ml, Route: IVP, Drug Form: INJ, Dosing Weight 61.364, kg, Q12H, Start date: 08/23/17 9:00:00 CDT,Duration: 30 day, Stop date: 09/21/17 21:00:00 CDT Notes: (Same as: BD Posiflush) Start Date: 08/23/17 Stop Date: 08/23/17 Status: DiscontinuedSodium Chloride 0.9% IV 1,000 mL 1,000 mL, Rate: 100 ml/hr, Infuse over: 10 hr, Route: IV, Dosing Weight 61.364 kg, Total Volume: 1,000, Start date: 08/23/17 0:03:00 CDT, Duration: 30 day, Stop date: 09/22/17 0:02:00 CDT, 1.62, m2 Start Date: 08/23/17 Stop Date: 08/23/17 Status: Discontinuedthiamine 100 mg, 1 tab, Route: PO, Drug form: TAB, Daily, Dosing Weight 61.364, kg, Start date: 08/23/17 9:00:00 CDT, Duration: 5 day, Stop date: 08/27/17 9:00:00 CDT Notes: (Same As: Vitamin B1) Start Date: 08/23/17 Stop Date: 08/23/17 Status: DiscontinuedZofran 4 mg, 2 mL, Route: IVP, Drug form: INJ, ONCE, Dosing Weight 61.364, kg, Priority : STAT, Start date: 08/22/17 21:14:00 CDT, Stop date: 08/22/17 21:14:00 CDT Notes: (Same as: Zofran) MEDICATION WASTE Product Size: 4 mgProduct Wasted: 0mg Start Date: 08/22/17 Stop Date: 08/22/17 Status: CompletedZofran 4 mg, 2 mL, Route: IVP, Drug form: INJ, Q8H, Dosing Weight 61.364, kg, PRN Nausea, Start date: 08/23/17 0:54:00 CDT, Duration: 30 day, Stop date: 09/22/17 0:53:00 CDT Notes: (Same as: Zofran) MEDICATION WASTE Product Size: 4 mgProduct Wasted: ___ mg Start Date: 08/23/17 Stop Date: 08/23/17 Status: DiscontinuedZofran ODT 4 mg oral tablet, disintegrating 4 mg=1 tab, PO, TID, PRN Nausea & Vomiting, 0 Refill(s) Start Date: 08/23/17 Stop Date: 11/09/17 Status: Discontinued Results BLOOD BANK RESULTS Most recent to oldest [Reference Range]: 1 2 3 ABO/Rh A POS *Unknown* (08/22/17 9:52 PM) Antibody Scrn Negative (08/22/17 9:52 PM) ELECTROLYTES Most recent to oldest [Reference Range]: 1 2 3 Sodium Lvl [135-145 mEq/L] 135 mEq/L (08/22/17 9:52 PM) Potassium Lvl [3.5-5.1 mEq/L] 3.3 mEq/L *LOW* (08/22/17 9:52 PM) Chloride Lvl [95-109 mEq/L] 92 mEq/L *LOW* (08/22/17 9:52 PM) CO2 [24-32 mEq/L] 21 mEq/L *LOW* (08/22/17 9:52 PM) AGAP [10.0-20.0 mEq/L] 25.3 mEq/L *HI* (08/22/17 9:52 PM) CHEM PANEL Most recent to oldest 1 2 3 [Reference Range]: Creatinine Lvl [0.50-1.40 0.57 mg/dL mg/dL] (08/22/17 9:52 PM) eGFR 118 mL/min/1.73m2 1 *NA* (08/22/17 9:52 PM) BUN [7-22 mg/dL] 7 mg/dL (08/22/17 9:52 PM) B/C Ratio [6-25] 12 (08/22/17 9:52 PM) Glucose Lvl [70-99 mg/dL] 67 mg/dL *LOW* (08/22/17 9:52 PM) Total Protein [6.4-8.4 g/dL] 8.8 g/dL *HI* (08/22/17 9:52 PM) Albumin Lvl [3.5-5.0 g/dL] 4.7 g/dL (08/22/17 9:52 PM) Globulin [2.7-4.2 g/dL] 4.1 g/dL (08/22/17 9:52 PM) A/G Ratio [0.7-1.6] 1.1 (08/22/17 9:52 PM) Calcium Lvl [8.5-10.5 mg/dL] 8.9 mg/dL (08/22/17 9:52 PM) Magnesium Lvl [1.8-2.4 mg/dL] 1.9 mg/dL (08/22/17 9:52 PM) ALT [0-65 unit/L] 40 unit/L (08/22/17 9:52 PM) AST [0-37 unit/L] 400 unit/L *HI* (08/22/17 9:52 PM) Alk Phos [39-136 unit/L] 129 unit/L (08/22/17 9:52 PM) Bili Total [0.2-1.3 mg/dL] 0.8 mg/dL (08/22/17 9:52 PM) Lactic Acid Lvl [0.5-2.2 2.6 mMol/L 3.7 mMol/L 5.2 mMol/L 2 mMol/L] *HI* *HI* *CRIT* (08/23/17 6:15 AM) (08/23/17 3:58 AM) (08/23/17 1:49 AM) 1Result Comment: The eGFR is calculated [...] be multiplied by the estimated BMI.2Result Comment: Critical Result(s) called to Romeo Appiah RN at 08/23/2017 02:35 by al. Read back OK.CARDIAC ENZYMES Most recent to oldest [Reference Range]: 1 2 3 Total CK [12-191 unit/L] 78 unit/L (08/22/17 9:52 PM) CK MB [0.5-3.6 ng/mL] <0.5 ng/mL (08/22/17 9:52 PM) CK MB Index [0.0-2.5] <0.6 (08/22/17 9:52 PM) Troponin-I [0.00-0.40 ng/mL] <0.02 ng/mL (08/22/17 9:52 PM) TOXICOLOGY Most recent to oldest [Reference Range]: 1 2 3 Etoh (%) .217 % *NA* (08/22/17 11:10 PM) Ethanol Lvl 217 mg/dL *NA* (08/22/17 11:10 PM) ENDOCRINOLOGY Most recent to oldest [Reference Range]: 1 2 3 S Preg [Negative] Negative *NA* (08/22/17 9:52 PM) URINE AND STOOL Most recent to oldest [Reference Range]: 1 2 3 UA Turbidity [Clear] Clear (08/22/17 11:10 PM) UA Color [Yellow] Light Yellow *NA* (08/22/17 11:10 PM) UA pH [5.0-8.0] 6.0 (08/22/17 11:10 PM) UA Spec Grav [<=1.030] 1.006 (08/22/17 11:10 PM) UA Glucose [Negative mg/dL] Negative mg/dL *NA* (08/22/17 11:10 PM) UA Blood [Negative] Moderate *ABN* (08/22/17 11:10 PM) UA Ketones [Negative mg/dL] 20 mg/dL *ABN* (08/22/17 11:10 PM) UA Protein [Negative mg/dL] Negative mg/dL (08/22/17 11:10 PM) UA Urobilinogen [0.1-1.0 mg/dL] <=1.0 mg/dL *NA* (08/22/17 11:10 PM) UA Bili [Negative] Negative *NA* (08/22/17 11:10 PM) UA Leuk Est [Negative] Negative (08/22/17 11:10 PM) UA Nitrite [Negative] Negative (08/22/17 11:10 PM) UA WBC [0-5 /HPF] 1 /HPF (08/22/17 11:10 PM) UA RBC [0-2 /HPF] <1 /HPF (08/22/17 11:10 PM) UA Sq Epi [Few /LPF] Few /LPF *NA* (08/22/17 11:10 PM) UA Mucus [None Seen /LPF] Few /LPF *NA* (08/22/17 11:10 PM) HEMATOLOGY Most recent to oldest [Reference Range]: 1 2 3 WBC [3.7-10.4 K/CMM] 5.8 K/CMM 5.8 K/CMM (08/23/17 3:58 AM) (08/22/17 9:52 PM) RBC [4.20-5.40 M/CMM] 3.36 M/CMM 3.72 M/CMM *LOW* *LOW* (08/23/17 3:58 AM) (08/22/17 9:52 PM) Hgb [12.0-16.0 g/dL] 12.4 g/dL 13.7 g/dL (08/23/17 3:58 AM) (08/22/17 9:52 PM) Hct [36.0-48.0 %] 35.9 % 39.8 % *LOW* (08/22/17 9:52 PM) (08/23/17 3:58 AM) MCV [80.0-98.0 fL] 107.0 fL 107.0 fL *HI* *HI* (08/23/17 3:58 AM) (08/22/17 9:52 PM) MCH [27.0-31.0 pg] 36.9 pg 36.8 pg *HI* *HI* (08/23/17 3:58 AM) (08/22/17 9:52 PM) MCHC [32.0-36.0 g/dL] 34.5 g/dL 34.4 g/dL (08/23/17 3:58 AM) (08/22/17 9:52 PM) RDW [11.5-14.5 %] 15.8 % 15.9 % *HI* *HI* (08/23/17 3:58 AM) (08/22/17 9:52 PM) MPV [7.4-10.4 fL] 7.6 fL 7.5 fL (08/23/17 3:58 AM) (08/22/17 9:52 PM) Platelet [133-450 K/CMM] 174 K/CMM 202 K/CMM (08/23/17 3:58 AM) (08/22/17 9:52 PM) Segs [45.0-75.0 %] 77.7 % 67.4 % *HI* (08/22/17 9:52 PM) (08/23/17 3:58 AM) Lymphocytes [20.0-40.0 %] 11.9 % 22.1 % *LOW* (08/22/17 9:52 PM) (08/23/17 3:58 AM) Monocytes [2.0-12.0 %] 9.1 % 9.1 % (08/23/17 3:58 AM) (08/22/17 9:52 PM) Eosinophils [0.0-4.0 %] 0.3 % 0.5 % (08/23/17 3:58 AM) (08/22/17 9:52 PM) Basophils [0.0-1.0 %] 1.0 % 0.9 % (08/23/17 3:58 AM) (08/22/17 9:52 PM) Segs-Bands # [1.5-8.1 K/CMM] 4.5 K/CMM 3.9 K/CMM (08/23/17 3:58 AM) (08/22/17 9:52 PM) Lymphocytes # [1.0-5.5 K/CMM] 0.7 K/CMM 1.3 K/CMM *LOW* (08/22/17 9:52 PM) (08/23/17 3:58 AM) Monocytes # [0.0-0.8 K/CMM] 0.5 K/CMM 0.5 K/CMM (08/23/17 3:58 AM) (08/22/17 9:52 PM) Basophils # [0.0-0.2 K/CMM] 0.1 K/CMM 0.1 K/CMM (08/23/17 3:58 AM) (08/22/17 9:52 PM) Macrocyte [None Seen] 2+ 2+ *ABN* *ABN* (08/23/17 3:58 AM) (08/22/17 9:52 PM) Immunizations Not Given Vaccine Date Status Refusal [...] 11/04/17 Assessment and Plan Extracted from: Title: Discharge Summary *template Author: Va Sim MD Date : 08/23/17 Discharge Information Home Care Instructions Notify [...] Improving. Education and Follow-up Counseled: patient. Extracted from: Title: History and Physical Author: [...]
[2018-11-28 11:40] LABS: Absolute Lymphocytes (CBC) 0.7 K/uL (0.7-4.9); Basophils % 0.5 % (0-1.3); Hematocrit 39.8 % (36.0-45.0); Lymphocytes % 8.2 % (15.3-44.8); MPV 10.3 fL (7.6-11.3)
[2018-11-28 12:00] LABS: ALT/SGPT 46 U/L (12-78); AST/SGOT 259 U/L (15-37); Albumin 3.8 g/dL (3.4-5.0); Alkaline Phosphatase 198 U/L (45-117); BUN Blood Urea Nitrogen 9 mg/dL (7-18); Bicarbonate 30 mmol/L (21-32); Bilirubin Direct 11.2 mg/dL (0-0.2); Bilirubin Total 14.1 mg/dL (0.2-1.0); Glucose Level 80 mg/dL (74-106); Lipase 108 U/L (73-393); Protein, Total 8.7 g/dL (6.4-8.2); Sodium Level 135 mmol/L (136-145)
[2018-11-28 12:01] LABS: Potassium 2.8 mmol/L (3.5-5.1)
[2018-11-28] MEDS ORDERED: ONDANSETRON 4 MG/2 ML VIAL ONE (12:22)
[2018-11-28] MEDS ORDERED: NA CHLORIDE 0.9% 1,000 ML ONE ×2 (12:22→15:49)
[2018-11-28 12:55] LABS: Anisocytosis 1+; Blood Morphology Comment NOTED (NOT SEEN); Macrocytosis 2+; Platelet Estimate ADEQ; Urine White Blood Cell Casts OK
[2018-11-28 13:06] LABS: Urine Blood NEGATIVE (NEG); Urine Glucose TRACE (NEG); Urine Protein 2+ (NEG); Urine Specific Gravity 1.015 (1.005-1.030)
--- NOTE | 2018-11-28 13:10 | RAD REPORT ---
EXAM DESCRIPTION: US - Abdomen Exam Limited - 11/28/2018 1:03 pm CLINICAL HISTORY: jaundice, RUQ pain COMPARISON: <Comparisons> FINDINGS: The gallbladder demonstrates small amount of sludge. No pericholecystic fluid or gallbladd er wall thickening. The common bile duct is normal measuring 5 mm. The liver demonstrates no findings of intrahepatic biliary dilatation. IMPRESSION: Gallbladder sludge.
[2018-11-28] MEDS ORDERED: KCL 20 MEQ/100 mL IVPB 20 MEQ/100 ML BAG IV ONE (13:27)
--- NOTE | 2018-11-28 13:37 | RAD REPORT ---
EXAM DESCRIPTION: CTAbdomen Pelvis W Contrast - 11/28/2018 1:27 pm CLINICAL HISTORY: Abdominal pain. jaundice;Abd pain COMPARISON: <Comparisons> TECHNIQUE: Biphasic CT imaging of the abdomen and pelvis was performed with 100 ml non-ionic IV cont rast. All CT scans are performed using dose optimization technique as appropriate and may include automated exposure control or mA/KV adjustment according to patient size. FINDINGS: The lung bases are clear. Diffuse fatty liver is present. No focal liver lesion or intra/extrahepatic biliary dilatation is see n. The spleen, pancreas, adrenal glands and kidneys are within normal limits. No bowel obstruction, free air, free fluid or abscess. Small fat containing left inguinal hernia. The appendix is normal. No evidence of significant lymphadenopathy. No suspicious bony findings. IMPRESSION: Prominent diffuse fatty liver with mild hepatomegaly.
--- NOTE | 2018-11-28 14:23 | ER ---
Nurse's Notes [facility] Name: Radha Ellison Age: 38 yrs Sex: Female : 1980 Arrival Date: 11/28/2018 Time: 10:48 Bed 6 Private MD: Diagnosis: Jaundice;Disorder of bilirubin metabolism, unspecified Presentation: 11/28 11:02 Presenting complaint: Patient states: my right upper stomach and shoots across and my tw2 lower back on the right side that started hurting 2 days ago, my urine is dark. and the tremors stay, my friend noticed that i am yellow a couple of days ago. Transition of care: patient was not received from another setting of care. Onset of symptoms was November 28, 2018. Risk Assessment: Do you want to hurt yourself or someone else? Patient reports no desire to harm self or others. Initial Sepsis Screen: Does the patient meet any 2 criteria? No. Patient's initial sepsis screen is negative. Does the patient have a suspected source of infection? No. Patient's initial sepsis screen is negative. Care prior to arrival: None. 11:02 Method Of Arrival: Wheelchair tw2 11:02 Acuity: JEB 2 tw2 Triage Assessment: 11:05 General: Appears in no apparent distress. Behavior is calm, cooperative, appropriate tw2 for age. Pain: Complains of pain in back and RUQ. EENT: No signs and/or symptoms were reported regarding the EENT system. GI: Reports upper abdominal pain, nausea. : Reports dark urine. Derm: Skin is jaundiced. Musculoskeletal: Range of motion: intact in all extremities. 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 - Social history:: Smoking status: Patient uses alcohol, patient/guardian reports chronic longstanding heavy alcohol consumption. drank last Friday. - Ebola Screening: : Patient denies travel to an Ebola-affected area in the 21 days before illness onset. - Family history:: not pertinent. - Hospitalizations: : No recent hospitalization is reported. Screenin:15 Abuse screen: Denies threats or abuse. Denies injuries from another. Nutritional aj screening: No deficits noted. Tuberculosis screening: No symptoms or risk factors identified. Fall Risk None identified. Assessment: 11:15 General: Appears in no apparent distress. uncomfortable, Behavior is calm, cooperative, aj appropriate for age. Pain: Complains of pain in back and right upper quadrant. Neuro: Level of Consciousness is awake, alert, obeys commands, Oriented to person, place, time, situation, Appropriate for age. Respiratory: Airway is patent Respiratory effort is even, unlabored, Respiratory pattern is regular, symmetrical. GI: Abdomen is round noted to have ascites, Reports upper abdominal pain. Derm: Skin is intact, is healthy with good turgor, Skin is jaundiced. 13:53 Reassessment: Patient appears in no apparent distress at this time. No changes from aj previously documented assessment. Patient and/or family updated on plan of care and expected duration. Pain level reassessed. Patient is alert, oriented x 3, equal unlabored respirations, skin warm/dry/pink. Vital Signs: 11:06 BP 91 / 61; Pulse 98; Resp 17; Temp 97.9(O); Pulse Ox 100% on R/A; Weight 62.6 kg; tw2 Height 4 ft. 11 in. (149.86 cm); Pain 10/10; 13:51 BP 103 / 78; Pulse 96; Resp 16; Pulse Ox 99% on R/A; aj 14:44 BP 103 / 71; Pulse 95; Resp 17; Pulse Ox 94% on R/A; aj 15:34 BP 102 / 68; Pulse 89; Resp 19; Pulse Ox 99% on R/A; aj 16:39 BP 104 / 78; Pulse 91; Resp 20; Pulse Ox 99% on R/A; aj 11:06 Body Mass Index 27.87 (62.60 kg, 149.86 cm) tw2 ED Course: 10:48 Patient arrived in ED. as 11:05 Triage completed. tw2 11:05 Arm band placed on. tw2 11:13 Harshad Jorge MD is Attending Physician. rn 11:13 Velia Centeno RN is Primary Nurse. aj 11:15 Patient has correct armband on for positive identification. aj 11:15 Missed attempt(s): 22 gauge in right forearm. antecubital area. Bleeding controlled, aj band aid applied, catheter tip intact. 11:27 Radiology exam delayed due to lab results not completed at this time. (BUN/Creatinine) bq test not completed at this time. 11:30 satellite project site monitor on. Pulse ox on. NIBP on. aj 11:30 No provider procedures requiring assistance completed. aj 12:04 Radiology exam delayed due to TECH WITH OUT-PT EXAM. sg3 12:20 Ultrasound completed. Patient tolerated well. Notified ED Physician pieter. sg3 12:21 Radiology exam delayed due to pt getting ultra sound at this time, then an US line will mw3 be put in. Nurse Veila will inform CT when pt is ready. 12:58 Radiology exam delayed due to IV insertion attempt and/or patient not having mw3 appropriate IV at this time. 13:03 US Abdomen Limited In Process Unspecified. EDMS 13:27 CT completed. Patient tolerated procedure well. Patient moved back from CT. mw3 13:28 CT Abd/Pelvis - IV Contrast Only In Process Unspecified. EDMS 13:52 initiated a transfer with Soila from the [facility] transfer center. eb 14:14 connected the GI doctor tanning solution maker for [facility] with Dr. Jorge for patient transfer eb consultation. 14:[address] Mcdowell who's tanning solution maker for [facility] with Dr. Jorge eb for patient transfer consultation. 14:30 Inserted saline lock: 20 gauge in left antecubital area, using aseptic technique. Blood aj collected. By Khai Askew. 14:45 administrative approval given by Soila Gann RN transfer coord/ Patient has been eb accepted by Max Velazquez at [facility] bed 909/ report to be called to [phone]. 16:40 Patient transferred, IV remains in place. intact, bleeding controlled, No aj redness/swelling at site. Pressure dressing applied. Administered Medications: 13:52 Drug: Zofran 4 mg Route: IVP; Site: left antecubital; aj 16:42 Follow up: Response: No adverse reaction aj 13:52 Drug: NS 0.9% 1000 ml Route: IV; Rate: 1000 ml; Site: left antecubital; 16:42 Follow up: Response: No adverse reaction; IV Status: Completed infusion; IV Intake: aj 1000ml 13:52 Drug: Potassium Chloride 20 mEq Route: IV; Rate: 1 calculated rate; Site: left aj antecubital; 16:43 Follow up: Response: No adverse reaction; IV Status: Infusion continued upon transfer; IV Intake: 33ml 15:40 Drug: TORadol - Ketorolac 15 mg Route: IVP; Site: left antecubital; 16:42 Follow up: Response: No adverse reaction aj Intake: 16:42 IV: 1000ml; Total: 1000ml. aj 16:43 IV: 33ml; Total: 1033ml. aj Outcome: 14:22 ER care complete, transfer ordered by . rn 16:40 Transferred by ground EMS to [facility], Transfer form completed. aj X-rays sent w/ patient. 16:40 Condition: stable 16:40 Instructed on the need for transfer. 16:46 Patient left the ED. aj Signatures: Dispatcher [employer] Velia Ruth, RN RN Juana Chow Amelia as Nieto, Roman, MD MD rn Wise, Tara, RN RN 2 Jessie Ring 3 Dyana Arce Michelle mw3 Corrections: (The following items were deleted from the chart) 13:06 12:04 Radiology exam delayed due to TECH WITH OUT-PT EXAM sg3 sg3
--- NOTE | 2018-11-28 14:23 | EDPHYS ---
Physician Documentation [facility] Name: Radha Ellison Age: 38 yrs Sex: Female : 1980 Arrival Date: 11/28/2018 Time: 10:48 Bed 6 Private MD: ED Physician Harshad Jorge HPI: 11/28 12:14 This 38 yrs old Female presents to ER via Wheelchair with complaints of abd rn pain. 12:14 The patient presents with abdominal pain in the upper abdomen, in the right upper rn quadrant. Onset: The symptoms/episode began/occurred at an unknown time. The symptoms do not radiate. Associated signs and symptoms: Pertinent positives: nausea and vomiting, Pertinent negatives: blood in stools, chest pain, constipation, diarrhea, dysuria, fever. The symptoms are described as crampy, intermittent. Modifying factors: The symptoms are alleviated by nothing, the symptoms are aggravated by nothing. Severity of pain: At its worst the pain was moderate in the emergency department the pain is unchanged. The patient has not experienced similar symptoms in the past. Reports seen at clinic this past week, has been in rehab, on librium, + alcoholic, reports skin has turned yellow in last few days along with worsening abd pain and vomiting. . 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 - Social history:: Smoking status: Patient uses alcohol, patient/guardian reports chronic longstanding heavy alcohol consumption. drank last Friday. - Ebola Screening: : Patient denies travel to an Ebola-affected area in the 21 days before illness onset. - Family history:: not pertinent. - Hospitalizations: : No recent hospitalization is reported. ROS: 12:14 Constitutional: Negative for fever, chills, and weight loss, Eyes: Negative for injury, rn pain, redness, and discharge, Neck: Negative for injury, pain, and swelling, Cardiovascular: Negative for chest pain, palpitations, and edema, Respiratory: Negative for shortness of breath, cough, wheezing, and pleuritic chest pain, Abdomen/GI: + abd pain/nausea/vomiting Back: Negative for injury MS/Extremity: Negative for injury and deformity, Skin: + yellowing of skin Neuro: Negative for headache, weakness, numbness, tingling, and seizure. Exam: 12:14 Constitutional: Thin female, no acute distress, + jaundice Head/Face: Normocephalic, rn atraumatic. Eyes: + scleral icterus ENT: dry MM Cardiovascular: Regular rate and rhythm. No pulse deficits. Respiratory: Lungs have equal breath sounds bilaterally, clear to auscultation Abdomen/GI: soft, + RUQ tenderness, no rebound, + hepatomegaly. MS/ Extremity: Pulses equal, no cyanosis. Neurovascular intact. Full, normal range of motion. Equal circumference. Neuro: Awake and alert, GCS 15, oriented to person, place, time, and situation. Cranial nerves II-XII grossly intact. Motor strength 5/5 in all extremities. Sensory grossly intact. Cerebellar exam normal. Normal gait. Vital Signs: 11:06 BP 91 / 61; Pulse 98; Resp 17; Temp 97.9(O); Pulse Ox 100% on R/A; Weight 62.6 kg; tw2 Height 4 ft. 11 in. (149.86 cm); Pain 10/10; 13:51 BP 103 / 78; Pulse 96; Resp 16; Pulse Ox 99% on R/A; aj 14:44 BP 103 / 71; Pulse 95; Resp 17; Pulse Ox 94% on R/A; aj 15:34 BP 102 / 68; Pulse 89; Resp 19; Pulse Ox 99% on R/A; aj 16:39 BP 104 / 78; Pulse 91; Resp 20; Pulse Ox 99% on R/A; aj 11:06 Body Mass Index 27.87 (62.60 kg, 149.86 cm) tw2 MDM: 11:13 Patient medically screened. rn 14:19 Differential diagnosis: hepatitis, obstructive jaundice, choledocholithiasis, rn cholecystitis. Data reviewed: vital signs, nurses notes, lab test result(s), radiologic studies, CT scan, ultrasound, and as a result, I will admit patient. Counseling: I had a detailed discussion with the patient and/or guardian regarding: the historical points, exam findings, and any diagnostic results supporting the discharge/admit diagnosis, lab results, radiology results, the need to transfer to another facility, [facility] does not immediately have the required specialist. ED course: Pt with hyperbilirubinemia, possible obstructive jaundice, accepted for transfer to [facility] for GI evaluation/MRCP, requests hospitalist admit.. 11/28 11:19 Order name: Basic Metabolic Panel; Complete Time: 12:07 rn 11/28 11:19 Order name: CBC with Diff; Complete Time: 13:09 rn 11/28 11:19 Order name: Creatinine for Radiology; Complete Time: 12:01 rn 11/28 11:19 Order name: Hepatic Function; Complete Time: 12:07 rn 11/28 11:19 Order name: Lipase; Complete Time: 12: rn 11/28 12:38 Order name: Urine Dipstick--Ancillary (enter results); Complete Time: 13:09 eb 11/28 11:19 Order name: CT Abd/Pelvis - IV Contrast Only; Complete Time: 13:49 rn 11/28 11:19 Order name: US Abdomen Limited; Complete Time: 13:49 rn 11/28 12:38 Order name: Urine --Ancillary (enter results); Complete Time: 13:09 eb 11/28 12:55 Order name: CBC Smear Scan; Complete Time: 13:09 EDOH 11/28 14:34 Order name: PT-INR; Complete Time: 15:28 rn 11/28 11:19 Order name: IV Saline Lock; Complete Time: 13:53 rn 11/28 11:19 Order name: Labs collected and sent; Complete Time: 13:52 rn Administered Medications: 13:52 Drug: Zofran 4 mg Route: IVP; Site: left antecubital; aj 16:42 Follow up: Response: No adverse reaction aj 13:52 Drug: NS 0.9% 1000 ml Route: IV; Rate: 1000 ml; Site: left antecubital; aj 16:42 Follow up: Response: No adverse reaction; IV Status: Completed infusion; IV Intake: aj 1000ml 13:52 Drug: Potassium Chloride 20 mEq Route: IV; Rate: 1 calculated rate; Site: left aj antecubital; 16:43 Follow up: Response: No adverse reaction; IV Status: Infusion continued upon transfer; aj IV Intake: 33ml 15:40 Drug: TORadol - Ketorolac 15 mg Route: IVP; Site: left antecubital; aj 16:42 Follow up: Response: No adverse reaction aj Disposition: 11/28/18 14:22 Transfer ordered to [facility]. Diagnosis are Jaundice, Disorder of bilirubin metabolism, unspecified. - Reason for transfer: Higher level of care. - Accepting physician is Dr. Pandey. - Condition is Stable. - Problem is new. - Symptoms are unchanged. Signatures: Dispatcher [employer] EDVelia Gardner RN RN aj Nieto, Roman, MD MD rn Wise, Tara, RN RN tw2 Corrections: (The following items were deleted from the chart) 13:27 12:14 Constitutional: Thin female, no acute distress, + jaundice Head/Face: rn Normocephalic, atraumatic. Eyes: + scleral icterus ENT: dry MM Cardiovascular: Regular rate and rhythm. No pulse deficits. Respiratory: Lungs have equal breath sounds bilaterally, clear to auscultation Abdomen/GI: soft, + RUQ tenderness, no rebound MS/ Extremity: Pulses equal, no cyanosis. Neurovascular intact. Full, normal range of motion. Equal circumference. Neuro: Awake and alert, GCS 15, oriented to person, place, time, and situation. Cranial nerves II-XII grossly intact. Motor strength 5/5 in all extremities. Sensory grossly intact. Cerebellar exam normal. Normal gait. rn 14:35 14:22 11/28/2018 14:22 Transfer ordered to [facility]. Diagnosis is rn Jaundice; Disorder of bilirubin metabolism, unspecified. Reason for transfer: Higher level of care. Accepting physician is . Condition is Stable. Problem is new. Symptoms are unchanged. rn 16:46 14:35 11/28/2018 14:22 Transfer ordered to [facility]. Diagnosis is aj Jaundice; Disorder of bilirubin metabolism, unspecified. Reason for transfer: Higher level of care. Accepting physician is Dr. Pandey. Condition is Stable. Problem is new. Symptoms are unchanged. rn
[2018-11-28 15:11] LABS: Protime INR 1.81
[2018-11-28] MEDS ORDERED: KETOROLAC 30 MG/ML INJ ONE (15:46)
== END 2018-11-28 16:46 | disposition short-term general hospital (02) ==
LOC: ER 10:47
DX: E80.7 Disorder of bilirubin metabolism, unspecified (principal); G40.909 Epilepsy, unspecified, not intractable, without status epilepticus
CPT/HCPCS: 36415; 74177; 76705; 80048; 80076; 81003; 81025; 83690; 85025; 85610; 96365; 96366; 96375; 99285; J2405; J7030; Q9967